=== PATIENT | female | born 1965 | race Caucasian/White ===

== ENCOUNTER 2017-05-22 04:02 | Emergency (ER) | payer OTHER ==
[2017-05-22] MEDS ORDERED: KETOROLAC 60 MG/2 ML VIAL IVP STA (04:39)
[2017-05-22] MEDS ORDERED: HYDROmorphone 1 MG/ML 1 ML SYRINGE IVP STA (04:39)
[2017-05-22] MEDS ORDERED: SODIUM CHLORIDE 0.9% 1,000 ML IV STA (04:39)
--- NOTE | 2017-05-22 04:41 | ED ---
General Adult HPI - General Chief complaint: Abdominal Pain Stated complaint: Right side/pelvic pain Time Seen by Provider: 05/22/17 04:10 Source: patient, RN notes reviewed Mode of arrival: ambulatory Limitations: no limitations - History of Present Illness Initial comments: This is a 52-year-old female presents emergency department with right-sided flank pain. Patient states she was lying in bed when it suddenly started around midnight. Patient states the pain is intermittent in severity she states patient states when it is really bad it makes her vomit. Patient states that it subsides but she always has a baseline level of pain and then again it comes on really strong. Patient denies any similar symptoms in the past. Patient denies any hematuria. Patient states when she does urinate however the pain seems to worsen her flank. Patient denies any recent fever chills. Patient denies any recent injury or heavy lifting. Denies any history of kidney stones. - Related Data Previous Rx's Medication Instructions Recorded Hydrocodone/Acetaminophen [[place] 1 each PO Q4HR PRN #20 tab 05/22/17 5-325] Ketorolac [Toradol] 10 mg PO Q6HR #15 tab 05/22/17 Allergies Allergy/AdvReac Type Severity Reaction Status Date / Time No Known Allergies Allergy Verified 05/22/17 04:12 Review of Systems ROS Statement: Those systems with pertinent positive or pertinent negative responses have been documented in the HPI. ROS Other: All systems not noted in ROS Statement are negative. 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 History of Any Multi-Drug Resistant Organisms: None Reported Past Surgical History: Cholecystectomy Additional Past Surgical History / Comment(s): d&c. right eye. Past Psychological History: No Psychological Hx Reported Smoking Status: Never smoker Past Alcohol Use History: None Reported Past Drug Use History: None Reported General Exam - General Exam Comments Initial Comments: GENERAL: Patient is well-developed and well-nourished. Patient is nontoxic and well- hydrated and is in moderate distress. ENT: Neck is soft and supple. No significant lymphadenopathy is noted. Oropharynx is clear. Moist mucous membranes. Neck has full range of motion without eliciting any pain. EYES: The sclera were anicteric and conjunctiva were pink and moist. Extraocular movements were intact and pupils were equal round and reactive to light. Eyelids were unremarkable. PULMONARY: Unlabored respirations. Good breath sounds bilaterally. No audible rales rhonchi or wheezing was noted. CARDIOVASCULAR: There is a regular rate and rhythm without any murmurs gallops or rubs. ABDOMEN: Soft and nontender with normal bowel sounds. No palpable organomegaly was noted. There is no palpable pulsatile mass. SKIN: Skin is clear with no lesions or rashes and otherwise unremarkable. NEUROLOGIC: Patient is alert and oriented x3. Cranial nerves II through XII are grossly intact. Motor and sensory are also intact. Normal speech, volume and content. Symmetrical smile. MUSCULOSKELETAL: Normal extremities with adequate strength and full range of motion. No lower extremity swelling or edema. No calf tenderness. LYMPHATICS: No significant lymphadenopathy is noted PSYCHIATRIC: Normal psychiatric evaluation. Limitations: no limitations Course Vital Signs 05/22/17 05/22/17 04:07 06:14 Temperature 98.5 F Pulse Rate 64 90 Respiratory 28 H 16 Rate Blood Pressure 246/114 215/93 O2 Sat by Pulse 99 100 Oximetry Medical Decision Making - Medical Decision Making CAT scan of the abdomen shows a 1.5 cm right UVJ kidney stone with mild hydronephrosis I went back and reevaluate the patient she was feeling much better. - Lab Data Result diagrams: 05/22/17 04:30 05/22/17 04:30 Lab Results 05/22/17 05/22/17 Range/Units 04:30 04:30 WBC 11.3 H (3.8-10.6) k/uL RBC 4.38 (3.80-5.40) m/uL Hgb 12.9 (11.4-16.0) gm/dL Hct 39.4 (34.0-46.0) % MCV 90.0 (80.0-100.0) fL MCH 29.3 (25.0-35.0) pg MCHC 32.6 (31.0-37.0) g/dL RDW 13.8 (11.5-15.5) % Plt Count 247 (150-450) k/uL Neutrophils % 76 % Lymphocytes % 15 % Monocytes % 4 % Eosinophils % 3 % Basophils % 0 % Neutrophils # 8.6 H (1.3-7.7) k/uL Lymphocytes # 1.7 (1.0-4.8) k/uL Monocytes # 0.5 (0-1.0) k/uL Eosinophils # 0.3 (0-0.7) k/uL Basophils # 0.1 (0-0.2) k/uL Sodium 138 (137-145) mmol/L Potassium 3.7 (3.5-5.1) mmol/L Chloride 105 (98-107) mmol/L Carbon Dioxide 18 L (22-30) mmol/L Anion Gap 15 mmol/L BUN 12 (7-17) mg/dL Creatinine 0.80 (0.52-1.04) mg/dL Est GFR (MDRD) Af Amer >60 (>60 ml/min/1.73 sqM) Est GFR (MDRD) Non-Af >60 (>60 ml/min/1.73 sqM) Glucose 187 H (74-99) mg/dL Calcium 9.5 (8.4-10.2) mg/dL Total Bilirubin 0.4 (0.2-1.3) mg/dL AST 17 (14-36) U/L ALT 29 (9-52) U/L Alkaline Phosphatase 77 (38-126) U/L Total Protein 7.4 (6.3-8.2) g/dL Albumin 4.2 (3.5-5.0) g/dL Amylase 37 (30-110) U/L Disposition Clinical Impression: Hypertension, Kidney stone Disposition: HOME SELF-CARE Condition: Good Instructions: Kidney Stones (ED) Prescriptions: Hydrocodone/Acetaminophen [[place] 5-325] 1 each PO Q4HR PRN #20 tab PRN Reason: Pain Ketorolac [Toradol] 10 mg PO Q6HR #15 tab Referrals: Arleen Riley DO [Primary Care Provider] - 1-2 days Randy Messer MD [STAFF PHYSICIAN] - 1-2 days
[2017-05-22] MEDS: ONDANSETRON 4 MG/2 ML VIAL IVP STA ×2 (04:44→05:11)
[2017-05-22 05:01] LABS: ALT 29 U/L (9-52); AST 17 U/L (14-36); Alkaline Phosphatase 77 U/L (38-126); Amylase 37 U/L (30-110); Anion Gap 15 mmol/L; Basophils # (A) 0.1 k/uL (0-0.2); Basophils % (A) 0 %; Blood Urea Nitrogen 12 mg/dL (7-17); CH 28.7; CHCM 32.1; Calcium 9.5 mg/dL (8.4-10.2); Carbon Dioxide 18 mmol/L (22-30); Chloride 105 mmol/L (98-107); Eosinophils # (A) 0.3 k/uL (0-0.7); Eosinophils % (A) 3 %; Glucose 187 mg/dL (74-99); HCT 39.4 % (34.0-46.0); HDW 2.48; HGB 12.9 gm/dL (11.4-16.0); Luc # (Auto) 0.17; Luc % (Auto) 2; Lymphocytes # (A) 1.7 k/uL (1.0-4.8); Lymphocytes % (A) 15 %; MCH 29.3 pg (25.0-35.0); MCHC 32.6 g/dL (31.0-37.0); Mean Platelet Volume 7.8; Monocytes # (A) 0.5 k/uL (0-1.0); Monocytes % (A) 4 %; Neutrophils # (A) 8.6 k/uL (1.3-7.7); Neutrophils % (A) 76 %; Non-African American GFR(MDRD) >60 (>60 ml/min/1.73 sqM); Potassium 3.7 mmol/L (3.5-5.1); RBC 4.38 m/uL (3.80-5.40); RDW 13.8 % (11.5-15.5); Sodium 138 mmol/L (137-145); Total Bilirubin 0.4 mg/dL (0.2-1.3); Total Protein 7.4 g/dL (6.3-8.2); WBC 11.3 k/uL (3.8-10.6); WBC (Perox) 11.65
--- NOTE | 2017-05-22 05:39 | CT ---
EXAM: CT Abdomen and Pelvis Without Intravenous Contrast CLINICAL HISTORY: Abdominal pain TECHNIQUE: Axial computed tomography images of the abdomen and pelvis without intravenous contrast. CTDI is 23.0 mGy and DLP is 1292.9. mGy-cm. This CT exam was performed using one or more of the following dose reduction techniques: automated exposure control, adjustment of the mA and/or kV according to patient size, and/or use of iterative reconstruction technique. COMPARISON: No relevant prior studies available. FINDINGS: Lower thorax: Question prior esophagectomy with gastric pull-through. Posterior left diaphragmatic hernia containing spleen and colon. ABDOMEN: Liver: Unremarkable. Gallbladder and bile ducts: Gallbladder is surgically absent. Pancreas: Unremarkable. Spleen: Unremarkable. Adrenals: Lipid rich adenoma within the right adrenal gland measured 3. 3 cm. Kidneys and ureters: There is a 14 mm calculus seen within the right UVJ with mild right hydroureteronephrosis. There is an additional nonobstructing calculus within the right kidney. Stomach and bowel: Diastases of the anterior abdominal musculature which contains nonobstructed colon. Appendix: No findings to suggest acute appendicitis. PELVIS: Bladder: Unremarkable. Reproductive: Unremarkable as visualized. ABDOMEN and PELVIS: Intraperitoneal space: Unremarkable. Bones/joints: Degenerative changes of the osseous structures. No acute fracture. No dislocation. Soft tissues: See above. Vasculature: Unremarkable. Lymph nodes: Unremarkable. IMPRESSION: 1. There is a 14 mm calculus seen within the right UVJ with mild right hydroureteronephrosis. 2. There is an additional nonobstructing calculus within the right kidney.
--- NOTE | 2017-05-22 05:41 | XR ---
EXAM: XR Abdomen Complete, 2 or More Views CLINICAL HISTORY: Reason: abdominal pain TECHNIQUE: Frontal view of the abdomen/pelvis with upright view of the abdomen. COMPARISON: No relevant prior studies available. FINDINGS: Intraperitoneal space: 11 mm calculus seen within the right hemipelvis, which likely correlates with right UVJ calculus as seen on prior CT. No free air. Gastrointestinal tract: Unremarkable. No dilation. Organs: Evidence of prior cholecystectomy. Bones/joints: Unremarkable. IMPRESSION: 11 mm calculus seen within the right hemipelvis, which likely correlates with right UVJ calculus as seen on prior CT.
[2017-05-22] MEDS ORDERED: hydrALAZINE HCL 20 MG/ML 1 ML VIAL IVP STA (06:13)
[2017-05-22 06:58] VITALS: BP 187/90; PULSE 66; RESP 18; TEMP 97.6
== END 2017-05-22 06:58 | disposition home or self-care (01) ==
LOC: EC 04:02
DX: N13.2 Hydronephrosis with renal and ureteral calculous obstruction (principal); I10 Essential (primary) hypertension; Z85.01 Personal history of malignant neoplasm of esophagus; Z90.49 Acquired absence of other specified parts of digestive tract
CPT/HCPCS: 36415; 80053; 82150; 85025; 74000; 74176; 99284; 96374; 96375 ×3; 96361 ×2; J0360; J2405; J1885; J1170

== ENCOUNTER → 2017-05-30 | Outpatient (CLI) | payer OTHER ==
[2017-05-30 11:07] LABS: EKG EKG PERFORMED
[2017-05-30 11:23] LABS: Basophils # (A) 0.1 k/uL (0-0.2); Basophils % (A) 1 %; CH 28.3; CHCM 30.6; Eosinophils # (A) 0.4 k/uL (0-0.7); Eosinophils % (A) 6 %; HCT 38.3 % (34.0-46.0); HGB 12.1 gm/dL (11.4-16.0); Hypochromasia Slight; Luc # (Auto) 0.17; Luc % (Auto) 3; Lymphocytes # (A) 1.7 k/uL (1.0-4.8); Lymphocytes % (A) 26 %; MCH 29.5 pg (25.0-35.0); MCHC 31.7 g/dL (31.0-37.0); MCV 92.9 fL (80.0-100.0); Mean Platelet Volume 7.3; Monocytes # (A) 0.4 k/uL (0-1.0); Monocytes % (A) 7 %; Neutrophils # (A) 3.7 k/uL (1.3-7.7); Neutrophils % (A) 58 %; RBC 4.12 m/uL (3.80-5.40); RDW 13.8 % (11.5-15.5); WBC 6.4 k/uL (3.8-10.6); WBC (Perox) 6.49
[2017-05-30 11:39] LABS: Anion Gap 9 mmol/L; Blood Urea Nitrogen 8 mg/dL (7-17); Calcium 8.6 mg/dL (8.4-10.2); Carbon Dioxide 29 mmol/L (22-30); Chloride 106 mmol/L (98-107); Glucose 90 mg/dL (74-99); Non-African American GFR(MDRD) >60 (>60 ml/min/1.73 sqM); Potassium 4.2 mmol/L (3.5-5.1); Sodium 144 mmol/L (137-145)
== END | disposition home or self-care (01) ==
LOC: LABPAT 10:41
PROVIDERS: ATTEND Physician Assistant
DX: Z01.810 Encounter for preprocedural cardiovascular examination (principal); N20.1 Calculus of ureter; E11.9 Type 2 diabetes mellitus without complications; I10 Essential (primary) hypertension; R00.1 Bradycardia, unspecified
CPT/HCPCS: 36415; 80048; 85025; 93005

== ENCOUNTER 2017-08-26 13:58 | Emergency (ER) | payer OTHER ==
[2017-08-26 14:03] VITALS: BP 136/84; PULSE 87; RESP 16; TEMP 99
[2017-08-26] MEDS ORDERED: DIPH,PERTUS(ACELL)TETVAC-LF 0.5 ML VIAL IM ONE (14:08)
--- NOTE | 2017-08-26 14:22 | ED ---
Wound/Laceration HPI - General Chief Complaint: Wound/Laceration Stated Complaint: Finger Lac Time Seen by Provider: 08/26/17 14:07 Source: patient, RN notes reviewed Mode of arrival: ambulatory Limitations: no limitations - History of Present Illness Initial Comments: This is a 52-year-old female presents to the emergency department with chief complaint of finger laceration. Patient states that approximately 1330 this afternoon she was using her kitchen mandolin. She states that she severed the tip of her left index finger. She dressed the wound with gauze and presented to the emergency department. Patient states she is not up-to-date with her tetanus vaccination. Denies any other injury. Denies fever, chills, chest pain , shortness of breath, abdominal pain, nausea or vomiting, constipation or diarrhea, dysuria or hematuria, numbness or tingling, headache or vision changes. - Related Data Home Medications Medication Instructions Recorded Confirmed Acetaminophen [Tylenol Extra 1,000 mg PO Q4-6H PRN 05/31/17 06/05/17 Strength] Insulin Glargine [Lantus] 20 unit SQ QAM 05/31/17 06/05/17 Lisinopril [Prinivil] 20 mg PO DAILY 05/31/17 05/31/17 Ranitidine HCl [Zantac] 150 mg PO BID 05/31/17 05/31/17 Sertraline [Zoloft] 50 mg PO HS 05/31/17 05/31/17 metFORMIN HCL [Glucophage] 500 mg PO BID 05/31/17 05/31/17 Antibiotic 06/05/17 Allergies Allergy/AdvReac Type Severity Reaction Status Date / Time No Known Allergies Allergy Verified 08/26/17 14:03 Review of Systems ROS Statement: Those systems with pertinent positive or pertinent negative responses have been documented in the HPI. ROS Other: All systems not noted in ROS Statement are negative. 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 hx bleeding ulcer, kidney stone History of Any Multi-Drug Resistant Organisms: None Reported Past Surgical History: Cholecystectomy, Tonsillectomy Additional Past Surgical History / Comment(s): surgery for esophageal cancer, rt eye surgery age 3, D&C, Past Anesthesia/Blood Transfusion Reactions: No Reported Reaction Past Psychological History: Depression Smoking Status: Never smoker Past Alcohol Use History: None Reported Past Drug Use History: None Reported - Past Family History Mother Family Medical History: No Reported History General Exam - General Exam Comments Initial Comments: General: Awake and alert, well-developed; in no apparent distress. HEENT: Head atraumatic, normocephalic. Pupils are equal, round and reactive to light. Extraocular movements intact. Neck: Supple. Normal ROM. Cardiovascular: Regular rate and rhythm. No murmurs, rubs or gallops. Chest symmetrical. Respiratory: Lungs clear to auscultation bilaterally. No wheezes, rales or rhonchi. Normal respiratory effort with no use of accessory muscles. Musculoskeletal: Normal ROM of left index finger. Sensation is intact. Radial pulses are 2+ equal and palpable bilaterally. Skin: [place], warm and dry without rashes. Superficial skin avulsion distal tip of left index finger. Neurological: Alert and oriented x3. CN II-XII grossly intact. Speech is fluent and answers are appropriate. No focal neuro deficits. Psychiatric: Normal mood and affect. No overt signs of depression or anxiety noted. Limitations: no limitations Course Vital Signs 08/26/17 13:59 Temperature 99 F Pulse Rate 87 Respiratory 16 Rate Blood Pressure 136/84 O2 Sat by Pulse 98 Oximetry Medical Decision Making - Medical Decision Making This is a 52-year-old female who presents to the emergency department with chief complaint of left index finger laceration. X-ray revealed no acute abnormalities or involvement of bone. There is a superficial skin avulsion distal tip of left index finger. Bleeding continues. Gelfoam and dressing placed. Patient is in no acute distress and will be discharged home. Recommended patient to remove the Gelfoam in 2 days. I told patient that sometimes it is difficult to remove so she may add water to the it. Recommended follow-up with Dr. Richardson in the next 2 days. She is in agreement with plan and voices understanding. All questions were answered. - Radiology Data Radiology results: report reviewed Left finger x-ray findings: I see no fracture nor dislocation. There is narrowing of the DIP joint space. There is no sign of a foreign body. Impression: No acute abnormality of left index finger. Disposition Clinical Impression: Avulsion of fingertip Disposition: HOME SELF-CARE Condition: Good Instructions: Skin Avulsion (ED) Additional Instructions: Please keep dressing and Gelfoam clean, dry and intact for the next 2 days until removal. Please follow up with primary care provider within 1-2 days. Return to emergency department if symptoms should worsen or any concerns arise. Referrals: Clark Richardson MD [Primary Care Provider] - 1-2 days Time of Disposition: 14:58
[2017-08-26] MEDS ORDERED: GELATIN SPONGE,ABSORB (SMALL) 1 EACH SPONGE TOPICAL STA (14:36)
--- NOTE | 2017-08-26 14:43 | XR ---
EXAMINATION TYPE: XR finger LT DATE OF EXAM: 08/26/2017 COMPARISON: NONE HISTORY: Laceration. Pain TECHNIQUE: 3 views FINDINGS: I see no fracture nor dislocation. There is narrowing of the DIP joint space. There is no s ign of a foreign body. IMPRESSION: No acute abnormality of the left index finger.
== END 2017-08-26 15:09 | disposition home or self-care (01) ==
LOC: EC 13:58
DX: S61.211A Laceration without foreign body of left index finger without damage to nail, initial encounter (principal); E11.9 Type 2 diabetes mellitus without complications; K21.9 Gastro-esophageal reflux disease without esophagitis; I10 Essential (primary) hypertension; F32.9 Major depressive disorder, single episode, unspecified; Z23 Encounter for immunization; Z85.01 Personal history of malignant neoplasm of esophagus; Z79.4 Long term (current) use of insulin; Z79.899 Other long term (current) drug therapy; W26.8XXA Contact with other sharp object(s), not elsewhere classified, initial encounter; Y92.000 Kitchen of unspecified non-institutional (private) residence as the place of occurrence of the external cause
CPT/HCPCS: 90471; 90715; 99283

== ENCOUNTER 2018-01-18 09:44 | Inpatient (IN) | payer OTHER ==
[2018-01-18] MEDS ORDERED: SODIUM CHLORIDE 0.9% 1,000 ML IV STA ×2 (10:23)
[2018-01-18] MEDS ORDERED: ONDANSETRON 4 MG/2 ML VIAL IVP STA (10:23)
[2018-01-18] MEDS ORDERED: MORPHINE SULFATE 4 MG/ML SYRINGE IV STA (10:23)
--- NOTE | 2018-01-18 10:23 | ED ---
General Adult HPI - General Chief complaint: Nausea/Vomiting/Diarrhea Stated complaint: Abd Pain, Vomiting Time Seen by Provider: 01/18/18 10:13 Source: patient Mode of arrival: wheelchair Limitations: no limitations - History of Present Illness Initial comments: 52 years old female with a history of hypertension and diabetes was unable to take her blood pressure medications this morning presents with right flank pain nausea and vomiting. She does have a history of kidney stones and this pain seems similar to her previous kidney stone, starts in the right flank area radiates to the right groin area she is nauseous she is throwing up, unable to take her medications and pain is 10 over 10, no frequency urgency dysuria. No headaches no neck stiffness no chest pain no shortness of breath no symptoms of TIA or CVA - Related Data Home Medications Medication Instructions Recorded Confirmed Acetaminophen [Tylenol Extra 1,000 mg PO Q4-6H PRN 05/31/17 06/05/17 Strength] Insulin Glargine [Lantus] 20 unit SQ QAM 05/31/17 06/05/17 Lisinopril [Prinivil] 20 mg PO DAILY 05/31/17 05/31/17 Ranitidine HCl [Zantac] 150 mg PO BID 05/31/17 05/31/17 Sertraline [Zoloft] 50 mg PO HS 05/31/17 05/31/17 metFORMIN HCL [Glucophage] 500 mg PO BID 05/31/17 05/31/17 Antibiotic 06/05/17 Allergies Allergy/AdvReac Type Severity Reaction Status Date / Time No Known Allergies Allergy Verified 01/18/18 10:03 Review of Systems ROS Statement: Those systems with pertinent positive or pertinent negative responses have been documented in the HPI. ROS Other: All systems not noted in ROS Statement are negative. 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 hx bleeding ulcer, kidney stone History of Any Multi-Drug Resistant Organisms: None Reported Past Surgical History: Cholecystectomy, Tonsillectomy Additional Past Surgical History / Comment(s): surgery for esophageal cancer, rt eye surgery age 3, D&C, Past Anesthesia/Blood Transfusion Reactions: No Reported Reaction Past Psychological History: Depression Smoking Status: Never smoker Past Alcohol Use History: None Reported Past Drug Use History: None Reported - Past Family History Mother Family Medical History: No Reported History General Exam - General Exam Comments Initial Comments: General: The patient is awake and alert, in severe distress does of the flank pain Skin: Skin is warm and dry and no rashes or lesions are noted. Eye: Pupils are equal, round and reactive to light, extra-ocular movements are intact; there is normal conjunctiva bilaterally. Ears, nose, mouth and throat: There are moist mucous membranes and no oral lesions. Neck: The neck is supple, there is no tenderness or JVD. Cardiovascular: There is a regular rate and rhythm. No murmur, rub or gallop is appreciated. Noticed tachycardia Respiratory: To auscultation bilateral, crease breath sounds bilateral Gastrointestinal: Tender over the right flank area and over the right paraumbilical area Back: There is no tenderness to palpation in the midline. There is no obvious deformity. Musculoskeletal: Normal ROM, no tenderness, There is no pedal edema. There is no calf tenderness or swelling. No cords were appreciated. Neurological: CN II-XII intact, Cranial nerves III through XII are intact. There are no obvious motor or sensory deficits. Coordination appears grossly intact. Speech is normal. Psychiatric: Cooperative, appropriate mood & affect, normal judgment. Limitations: no limitations Course Vital Signs 01/18/18 01/18/18 10:01 12:06 Temperature 98.5 F Pulse Rate 73 64 Respiratory 20 16 Rate Blood Pressure 234/109 237/102 O2 Sat by Pulse 99 97 Oximetry , Called and spoke to Dr. Pollard informed him about the CT findings about obstructing stone in the proximal right ureter, hydroureter nephrosis and perinephric and periureteric fat Stranding Medical Decision Making - Lab Data Result diagrams: 01/18/18 10:50 01/18/18 10:50 Lab Results 01/18/18 01/18/18 01/18/18 Range/Units 10:50 10:50 10:50 WBC 9.4 (3.8-10.6) k/uL RBC 4.55 (3.80-5.40) m/uL Hgb 13.2 (11.4-16.0) gm/dL Hct 39.3 (34.0-46.0) % MCV 86.3 (80.0-100.0) fL MCH 29.0 (25.0-35.0) pg MCHC 33.6 (31.0-37.0) g/dL RDW 13.4 (11.5-15.5) % Plt Count 220 (150-450) k/uL Neutrophils % 80 % Lymphocytes % 14 % Monocytes % 3 % Eosinophils % 1 % Basophils % 1 % Neutrophils # 7.5 (1.3-7.7) k/uL Lymphocytes # 1.4 (1.0-4.8) k/uL Monocytes # 0.3 (0-1.0) k/uL Eosinophils # 0.1 (0-0.7) k/uL Basophils # 0.0 (0-0.2) k/uL Sodium 143 (137-145) mmol/L Potassium 3.3 L (3.5-5.1) mmol/L Chloride 103 (98-107) mmol/L Carbon Dioxide 22 (22-30) mmol/L Anion Gap 18 mmol/L BUN 13 (7-17) mg/dL Creatinine 0.60 (0.52-1.04) mg/dL Est GFR (CKD-EPI)AfAm >90 (>60 ml/min/1.73 sqM) Est GFR (CKD-EPI)NonAf >90 (>60 ml/min/1.73 sqM) Glucose 259 H (74-99) mg/dL Calcium 9.3 (8.4-10.2) mg/dL Total Bilirubin 0.6 (0.2-1.3) mg/dL AST 17 (14-36) U/L ALT 22 (9-52) U/L Alkaline Phosphatase 59 (38-126) U/L Total Protein 6.9 (6.3-8.2) g/dL Albumin 4.0 (3.5-5.0) g/dL Urine Color Light Yellow Urine Appearance Cloudy H (Clear) Urine pH 5.5 (5.0-8.0) Ur Specific [place] 1.013 (1.001-1.035) Urine Protein 1+ H (Negative) Urine Glucose (UA) 1+ H (Negative) Urine Ketones 2+ H (Negative) Urine Blood Small H (Negative) Urine Nitrite Positive H (Negative) Urine Bilirubin Negative (Negative) Urine Urobilinogen <2.0 (<2.0) mg/dL Ur Leukocyte Esterase Large H (Negative) Urine RBC 26 H (0-5) /hpf Urine WBC 42 H (0-5) /hpf Ur Squamous Epith Cells 3 (0-4) /hpf Urine Bacteria Moderate H (None) /hpf Urine Mucus Rare H (None) /hpf Critical Care Time Total Critical Care Time: 45 Critical Care Time: I notice a blood pressure childs to 34/109, she was given some pain medications noted nausea medications and is hoping this will go down and unfortunately blood pressure persisted very high finally labetalol 20 mg along with the lisinopril 20 mg IV and by mouth respectively was given morphine was repeated along with a nausea medicine, I reviewed the CAT scan and CAT scan confirms a 6 mm obstructing stone in the proximal ureter causing hydroureter and hydronephrosis with some perinephric and periureteric's fat stranding, this was shared with the patient and then discussed with the Dr. Atul Pollard he agreed with admission she be admitted to Dr. Pollard's service and her sugar is bit high is greater than 250 with some ketones though she is not really ketoacidosis she does some fluids and some subcu regular insulin Disposition Clinical Impression: Hydronephrosis, Hydroureter, Obstruction of right ureteropelvic junction due to stone, Hypertension Disposition: ADMITTED IP TO THIS HOSP Condition: Good Referrals: Nonstaff,Physician [Primary Care Provider] - 1-2 days
[2018-01-18 11:06] LABS: Basophils % (A) 1 %; Eosinophils # (A) 0.1 k/uL (0-0.7); Eosinophils % (A) 1 %; HCT 39.3 % (34.0-46.0); HGB 13.2 gm/dL (11.4-16.0); Lymphocytes # (A) 1.4 k/uL (1.0-4.8); Lymphocytes % (A) 14 %; MCHC 33.6 g/dL (31.0-37.0); MCV 86.3 fL (80.0-100.0); Mean Platelet Volume 8.5; Monocytes # (A) 0.3 k/uL (0-1.0); Monocytes % (A) 3 %; Neutrophils # (A) 7.5 k/uL (1.3-7.7); Neutrophils % (A) 80 %; Platelet Count 220 k/uL (150-450); RBC 4.55 m/uL (3.80-5.40); RDW 13.4 % (11.5-15.5); WBC 9.4 k/uL (3.8-10.6)
[2018-01-18 11:15] LABS: ALT 22 U/L (9-52); AST 17 U/L (14-36); Alkaline Phosphatase 59 U/L (38-126); Anion Gap 18 mmol/L; Blood Urea Nitrogen 13 mg/dL (7-17); Calcium 9.3 mg/dL (8.4-10.2); Carbon Dioxide 22 mmol/L (22-30); Chloride 103 mmol/L (98-107); Glucose 259 mg/dL (74-99); Potassium 3.3 mmol/L (3.5-5.1); Sodium 143 mmol/L (137-145); Total Bilirubin 0.6 mg/dL (0.2-1.3); Total Protein 6.9 g/dL (6.3-8.2)
[2018-01-18 11:23] LABS: Appearance,Urine Cloudy (Clear); Bacteria,Urine Moderate /hpf; Bilirubin,Urine Negative (Negative); Blood,Urine Small (Negative); Color,Urine Light Yellow; Glucose,Urine (UA) 1+ (Negative); Leukocyte Esterase,Urine Large (Negative); Mucus,Urine Rare /hpf; Nitrite,Urine Positive (Negative); PH, Urine 5.5 (5.0-8.0); Protein,Urine 1+ (Negative); RBC,Urine 26 /hpf (0-5); Specific Gravity,Urine 1.013 (1.001-1.035); Squamous Epithelial Cell,Urine 3 /hpf (0-4); Urobilinogen,Urine <2.0 mg/dL (<2.0); WBC,Urine 42 /hpf (0-5)
[2018-01-18 11:28] LABS: Ketones,Urine 2+ (Negative)
[2018-01-18] MEDS ORDERED: cefTRIAXone 2,000 MG in SODIUM CHLORIDE 0.9% 100 ML IVPB STA (12:01)
[2018-01-18] MEDS ORDERED: INSULIN REGULAR 100 UNIT/ML VIAL SQ ONE (12:02)
[2018-01-18] MEDS ORDERED: cefTRIAXone IN SWFI 2,000 MG/20 ML SYRINGE IVP STA (12:02)
[2018-01-18] MEDS ORDERED: METOCLOPRAMIDE 5 MG/ML 2 ML VIAL IVP STA (12:02)
--- NOTE | 2018-01-18 12:17 | CT ---
EXAMINATION TYPE: CT abdomen pelvis wo con DATE OF EXAM: 01/18/2018 COMPARISON: 05/22/2017 HISTORY: Rt flank pain CT DLP: 936.4 mGycm Automated exposure control for dose reduction was used. TECHNIQUE: Helical acquisition of images was performed from the lung bases through the pelvis. FINDINGS: LUNG BASES: There is a partial intrathoracic stomach with postsurgical changes and Bochdalek hernia p ortions of the displaced pancreas and splenic vasculature. LIVER/GB: Unenhanced liver is grossly unremarkable. Gallbladder surgically absent. PANCREAS: And chronic atrophy and displacement as described above. No pancreatic ductal dilatation. SPLEEN: No significant abnormality is seen. ADRENALS: Low-density 2.5 cm right adrenal nodule is compatible with a benign adrenal adenoma. Left a drenal gland is unremarkable. KIDNEYS: 2 mm nonobstructing right renal calculus is seen within a calyx in addition to an obstructin g 6 mm proximal ureteral calculus creating mild right hydroureteronephrosis, periureteral fat strandi ng and perinephric fat stranding. No urinary bladder calculi are seen. No left-sided hydronephrosis. No left-sided nephrolithiasis. FREE AIR: No free air is visualized REPRODUCTIVE ORGANS: No significant abnormality is seen URINARY BLADDER: No significant abnormality is seen. ADENOPATHY: Greater than 1 cm short axis lymph nodes are seen within the abdomen or pelvis. OSSEOUS STRUCTURES: Nonspecific sclerotic foci likely within the left femoral head may relate to [place]. BOWEL: Partial intrathoracic stomach with postsurgical changes as described above. Small bowel is pr edominantly collected within the left mid abdomen rather than the right abdomen. This may be partiall y due to the elongated liver No dilation is seen of large or small bowel. Lipomatous hypertrophy of t he ileocecal valve is identified. There is a ventral hernia that is wide neck containing both large a nd small bowel. No current evidence of bowel incarceration on CT. IMPRESSION: 1. ACUTE OBSTRUCTING 6 MM PROXIMAL URETERAL CALCULUS CREATING MILD RIGHT HYDROURETERONEPHROSIS, PERIN EPHRIC FAT STRANDING AND PERIURETERAL FAT STRANDING. 2. ADDITIONAL NONOBSTRUCTING RIGHT RENAL CALCULUS. 3. CHRONIC CHANGES SUCH A PARTIAL INTRATHORACIC STOMACH, POSTSURGICAL CHANGES OF THE STOMACH, ANNABELLA DALEK HERNIA WITH HERNIATION OF MESENTERIC FAT IN THE PANCREAS, AND VENTRAL HERNIA CONTAINING BOTH LA RGE AND SMALL BOWEL.
[2018-01-18] MEDS ORDERED: MORPHINE SULFATE 4 MG/ML SYRINGE IVP STA (12:24)
[2018-01-18] MEDS ORDERED: LISINOPRIL 20 MG TAB PO STA (12:25)
[2018-01-18] MEDS: LABETALOL 5 MG/ML VIAL MDV IVP STA ×2 (12:56→14:06)
[2018-01-18] MEDS ORDERED: MORPHINE SULFATE 4 MG/ML SYRINGE IV PRN (13:02)
[2018-01-18] MEDS ORDERED: NALOXONE 0.4 MG/ML 1 ML VIAL IV PRN (13:02)
[2018-01-18 13:40] LABS: Glucose,Whole Blood 277 mg/dL (75-99)
[2018-01-18] MEDS: ACETAMINOPHEN TAB 500 MG TAB PO PRN (13:47)
[2018-01-18 15:25] VITALS: BMI 31.5
[2018-01-18 16:31] LABS: Glucose,Whole Blood 213 mg/dL (75-99)
[2018-01-18] MEDS ORDERED: cefTRIAXone IN SWFI 1,000 MG/10 ML SYRINGE IVP STA (17:24)
[2018-01-18] MEDS: metFORMIN 500 MG TAB PO SCH (17:25)
--- NOTE | 2018-01-18 17:31 | P.GSHP ---
History of Present Illness H&P Date: 01/18/18 48-year-old female with a weeklong history of right flank pain. She has had fever for the last 24 hours. She came into the emergency room. She was evaluated and found to have a right ureteral stone in the upper ureter 6 mm. The patient has a history of stones. She is diabetic. She had a temperature 102. The emergency room and admitted her to [place]. As the fever she needs a double-J catheter. Her urine looks infected. This is been discussed with the patient. - Constitutional Constitutional: Reports fatigue, Reports fever, Reports lethargy - Gastrointestinal Gastrointestinal: Reports abdominal pain Past Medical History Past Medical History: Cancer, Diabetes Mellitus, GERD/Reflux, GI Bleed, Hypertension Additional Past Medical History / Comment(s): esophogeal cancer. hx bleeding ulcer, kidney stone History of Any Multi-Drug Resistant Organisms: None Reported Past Surgical History: Cholecystectomy, Tonsillectomy Additional Past Surgical History / Comment(s): surgery for esophageal cancer, rt eye surgery age 3, D&C, Past Anesthesia/Blood Transfusion Reactions: No Reported Reaction Past Psychological History: Depression Smoking Status: Never smoker Past Alcohol Use History: None Reported Past Drug Use History: None Reported - Past Family History Mother Family Medical History: No Reported History Father Family Medical History: No Reported History Medications and Allergies Home Medications Medication Instructions Recorded Confirmed Type Lisinopril [Prinivil] 20 mg PO DAILY 05/31/17 01/18/18 History Ranitidine HCl [Zantac] 150 mg PO BID 05/31/17 01/18/18 History Sertraline [Zoloft] 50 mg PO HS 05/31/17 01/18/18 History metFORMIN HCL [Glucophage] 500 mg PO BID 05/31/17 01/18/18 History Insulin Aspart [NovoLOG See Protocol SQ TID-W/MEALS 01/18/18 01/18/18 History (formulary)] Allergies Allergy/AdvReac Type Severity Reaction Status Date / Time No Known Allergies Allergy Verified 01/18/18 13:33 Surgical - Exam Vital Signs Temp Pulse Resp BP Pulse Ox 98.5 F 73 20 234/109 99 01/18/18 10:01 01/18/18 10:01 01/18/18 10:01 01/18/18 10:01 01/18/18 10:01 - General well developed, well nourished, moderate distress - ENT no hearing loss - Neck trachea midline - Respiratory normal expansion, normal respiratory effort - Cardiovascular Rhythm: regular - Abdomen Abdomen: soft, tender - Neurologic normal coordination, normal sensation - Musculoskeletal normal posture - Psychiatric oriented to time, oriented to person, oriented to place, speech is normal, memory intact Results - Labs 01/18/18 10:50 01/18/18 10:50 Abnormal Lab Results - Last 24 Hours (Table) 01/18/18 01/18/18 01/18/18 Range/Units 10:50 10:50 13:38 Potassium 3.3 L (3.5-5.1) mmol/L Glucose 259 H (74-99) mg/dL POC Glucose (mg/dL) 277 H (75-99) mg/dL Urine Appearance Cloudy H (Clear) Urine Protein 1+ H (Negative) Urine Glucose (UA) 1+ H (Negative) Urine Ketones 2+ H (Negative) Urine Blood Small H (Negative) Urine Nitrite Positive H (Negative) Ur Leukocyte Esterase Large H (Negative) Urine RBC 26 H (0-5) /hpf Urine WBC 42 H (0-5) /hpf Urine Bacteria Moderate H (None) /hpf Urine Mucus Rare H (None) /hpf 01/18/18 Range/Units 16:25 Potassium (3.5-5.1) mmol/L Glucose (74-99) mg/dL POC Glucose (mg/dL) 213 H (75-99) mg/dL Urine Appearance (Clear) Urine Protein (Negative) Urine Glucose (UA) (Negative) Urine Ketones (Negative) Urine Blood (Negative) Urine Nitrite (Negative) Ur Leukocyte Esterase (Negative) Urine RBC (0-5) /hpf Urine WBC (0-5) /hpf Urine Bacteria (None) /hpf Urine Mucus (None) /hpf Diabetes panel 01/18/18 Range/Units 10:50 Sodium 143 (137-145) mmol/L Potassium 3.3 L (3.5-5.1) mmol/L Chloride 103 (98-107) mmol/L Carbon Dioxide 22 (22-30) mmol/L BUN 13 (7-17) mg/dL Creatinine 0.60 (0.52-1.04) mg/dL Glucose 259 H (74-99) mg/dL Calcium 9.3 (8.4-10.2) mg/dL AST 17 (14-36) U/L ALT 22 (9-52) U/L Alkaline Phosphatase 59 (38-126) U/L Total Protein 6.9 (6.3-8.2) g/dL Albumin 4.0 (3.5-5.0) g/dL Calcium panel 01/18/18 Range/Units 10:50 Calcium 9.3 (8.4-10.2) mg/dL Albumin 4.0 (3.5-5.0) g/dL Pituitary panel 01/18/18 Range/Units 10:50 Sodium 143 (137-145) mmol/L Potassium 3.3 L (3.5-5.1) mmol/L Chloride 103 (98-107) mmol/L Carbon Dioxide 22 (22-30) mmol/L BUN 13 (7-17) mg/dL Creatinine 0.60 (0.52-1.04) mg/dL Glucose 259 H (74-99) mg/dL Calcium 9.3 (8.4-10.2) mg/dL Adrenal panel 01/18/18 Range/Units 10:50 Sodium 143 (137-145) mmol/L Potassium 3.3 L (3.5-5.1) mmol/L Chloride 103 (98-107) mmol/L Carbon Dioxide 22 (22-30) mmol/L BUN 13 (7-17) mg/dL Creatinine 0.60 (0.52-1.04) mg/dL Glucose 259 H (74-99) mg/dL Calcium 9.3 (8.4-10.2) mg/dL Total Bilirubin 0.6 (0.2-1.3) mg/dL AST 17 (14-36) U/L ALT 22 (9-52) U/L Alkaline Phosphatase 59 (38-126) U/L Total Protein 6.9 (6.3-8.2) g/dL Albumin 4.0 (3.5-5.0) g/dL - Imaging CT scan - abdomen: report reviewed, image reviewed CT scan - pelvis: report reviewed, image reviewed Assessment and Plan Assessment: Impression: Right ureteral stone, urinary tract infection with sepsis, diabetes Recommendations: IV antibiotics, nothing by mouth, placement of double-J catheter.
[2018-01-18] MEDS ORDERED: LIDOCAINE 1% INJ 10MG/ML (20 ML MDV) ONE (18:24)
[2018-01-18] MEDS ORDERED: ONDANSETRON 4 MG/2 ML VIAL ONE (18:24)
[2018-01-18] MEDS ORDERED: MIDAZOLAM 2 MG/2 ML VIAL ONE (18:24)
[2018-01-18] MEDS ORDERED: ePHEDrine SULFATE/0.9% NACL/PF 50 MG/5 ML SYRINGE IV ONE (18:24)
[2018-01-18] MEDS ORDERED: fentaNYL (PF) 50 MCG/ML 2 ML AMP ONE (18:24)
[2018-01-18] MEDS ORDERED: PROPOFOL 10 MG/ML 20 ML VIAL IV ONE (18:24)
[2018-01-18] MEDS ORDERED: SUCCINYLCHOLINE CHLORIDE 100 MG/5 ML SYR IV ONE (18:24)
[2018-01-18] MEDS ORDERED: IV FLUID CONTINUATION 200 ML IV ONE (18:40)
[2018-01-18] MEDS ORDERED: LACTATED RINGERS 1,000 ML IV ONE (18:40)
--- NOTE | 2018-01-18 18:46 | P.OP ---
Date of Procedure: 01/18/18 Preoperative Diagnosis: Right ureteral stone, urinary tract infection with sepsis, pyonephrosis Postoperative Diagnosis: Same Procedure(s) Performed: Cystoscopy, placement of 6 x 26 double-J catheter right Anesthesia: JOSSUE Surgeon: Randy Messer Estimated Blood Loss (ml): 0 Pathology: none sent Condition: stable Disposition: PACU Indications for Procedure: The patient is a 52 old female admitted to the hospital with acute ureteral colic. She developed a temperature 102 [address] floor. Her urine looked infected. Because of the elevated temperature the infected looking urine she' ll undergo a double-J catheter.. This will control the pain and alleviate the obstruction and urosepsis. Description of Procedure: Patient is brought to the operating room. She's given a general endotracheal anesthesia. She's placed lithotomy position with sterile prep and drape. Cystoscopy Foroblique lens and 22-Danish sheath identifies a chronically infected as well as acutely infected bladder. An 035 wires passed up alongside the stone into the renal pelvis. Marked pyonephrosis comes from the right ureteral orifice. Over the wires passed a 6 x 26 double-J catheter that coils in the renal pelvis and the bladder. Did urine drained from the kidney. The bladder strain the patient awake and returned recovery in good condition. She tolerated procedure well. She required a ureteroscopy stone and stent removal at a later date.
--- NOTE | 2018-01-18 18:58 | FL ---
EXAMINATION TYPE: FL guidance operating room DATE OF EXAM: 01/18/2018 CLINICAL HISTORY: Right-sided ureteral stent placement TECHNIQUE: Fluoroscopy. COMPARISON: None. FINDINGS/IMPRESSION: Fluoroscopic guidance was provided during procedure performed by Dr. Messer. A total of 3 seconds of fluoroscopic time was utilized during the procedure and 1 spot images was acqui red during placement of a right ureteral stent.
[2018-01-18 20:03] LABS: Glucose,Whole Blood 196 mg/dL (75-99)
[2018-01-18] MEDS: SERTRALINE 50 MG TAB PO SCH (20:11)
[2018-01-18] MEDS: FAMOTIDINE 20 MG TAB PO SCH (20:11)
[2018-01-19 06:46] LABS: Glucose,Whole Blood 209 mg/dL (75-99)
[2018-01-19 06:59] LABS: ALT 31 U/L (9-52); AST 34 U/L (14-36); Albumin 3.1 g/dL (3.5-5.0); Alkaline Phosphatase 45 U/L (38-126); Anion Gap 14 mmol/L; Blood Urea Nitrogen 18 mg/dL (7-17); Calcium 8.2 mg/dL (8.4-10.2); Carbon Dioxide 24 mmol/L (22-30); Chloride 104 mmol/L (98-107); Glucose 214 mg/dL (74-99); Potassium 3.9 mmol/L (3.5-5.1); Sodium 142 mmol/L (137-145); Total Bilirubin 0.3 mg/dL (0.2-1.3); Total Protein 5.6 g/dL (6.3-8.2)
[2018-01-19 07:24] LABS: Basophils # (A) 0.1 k/uL (0-0.2); Basophils % (A) 0 %; Eosinophils % (A) 0 %; HCT 36.4 % (34.0-46.0); HGB 11.5 gm/dL (11.4-16.0); Hypochromasia Slight; Lymphocytes # (A) 1.8 k/uL (1.0-4.8); Lymphocytes % (A) 8 %; MCH 28.7 pg (25.0-35.0); MCHC 31.5 g/dL (31.0-37.0); MCV 90.9 fL (80.0-100.0); Mean Platelet Volume 8.5; Monocytes # (A) 1.3 k/uL (0-1.0); Monocytes % (A) 5 %; Neutrophils # (A) 20.6 k/uL (1.3-7.7); Neutrophils % (A) 86 %; Platelet Count 139 k/uL (150-450); RDW 13.8 % (11.5-15.5); WBC 23.9 k/uL (3.8-10.6)
[2018-01-19] MEDS ORDERED: INSULIN DETEMIR 100 UNIT/ML 10 ML VIAL SQ SCH (07:30)
[2018-01-19] MEDS: metFORMIN 500 MG TAB PO SCH ×2 (07:58→17:53)
[2018-01-19] MEDS: FAMOTIDINE 20 MG TAB PO SCH (07:59)
[2018-01-19] MEDS: LISINOPRIL 20 MG TAB PO SCH (07:59)
[2018-01-19] MEDS: ACETAMINOPHEN TAB 500 MG TAB PO PRN ×2 (11:41→20:12)
[2018-01-19] MEDS: ONDANSETRON 4 MG/2 ML VIAL IVP PRN ×2 (11:42→20:13)
[2018-01-19 11:49] LABS: Glucose,Whole Blood 198 mg/dL (75-99)
--- NOTE | 2018-01-19 11:56 | P.PN ---
Subjective Progress Note Date: 01/19/18 The patient underwent emergent placement of a double-J catheter to relieve the obstruction from a pyonephrosis due to a right ureteral stone, urinary tract infection with sepsis yesterday. She is feeling better but still nauseated and was still some vomiting. She did have a white count of 23,000 which is not surprising given was identified. I will continue to observe for 24 hours longer. SHe'll be discharged home tomorrow provided she continues to improve. Objective - Vital Signs Vital signs: Vital Signs Temp 98.8 F 01/19/18 11:40 Pulse 68 01/19/18 11:40 Resp 14 01/19/18 11:40 BP 138/79 01/19/18 11:40 Pulse Ox 98 01/19/18 11:40 Intake & Output 01/18/18 01/19/18 01/19/18 18:59 06:59 18:59 Intake Total 400 1050 Output Total 0 300 Balance 400 750 Weight 99.79 kg Intake: IV 400 Intake, IV Titration 1050 Amount Sodium Chloride 0.9% 1, 1050 000 ml @ 100 mls/hr IV . Q10H STA Rx#:[id number] Output: Urine 300 Estimated Blood Loss 0 Other: # Voids 2 - Labs CBC & Chem 7: 01/19/18 06:11 01/19/18 06:11 Labs: Abnormal Lab Results - Last 24 Hours (Table) 01/18/18 01/18/18 01/18/18 Range/Units 13:38 16:25 20:00 WBC (3.8-10.6) k/uL Plt Count (150-450) k/uL Neutrophils # (1.3-7.7) k/uL Monocytes # (0-1.0) k/uL BUN (7-17) mg/dL Glucose (74-99) mg/dL POC Glucose (mg/dL) 277 H 213 H 196 H (75-99) mg/dL Calcium (8.4-10.2) mg/dL Total Protein (6.3-8.2) g/dL Albumin (3.5-5.0) g/dL 01/19/18 01/19/18 01/19/18 Range/Units 06:11 06:11 06:44 WBC 23.9 H (3.8-10.6) k/uL Plt Count 139 L (150-450) k/uL Neutrophils # 20.6 H (1.3-7.7) k/uL Monocytes # 1.3 H (0-1.0) k/uL BUN 18 H (7-17) mg/dL Glucose 214 H (74-99) mg/dL POC Glucose (mg/dL) 209 H (75-99) mg/dL Calcium 8.2 L (8.4-10.2) mg/dL Total Protein 5.6 L (6.3-8.2) g/dL Albumin 3.1 L (3.5-5.0) g/dL 01/19/18 Range/Units 11:47 WBC (3.8-10.6) k/uL Plt Count (150-450) k/uL Neutrophils # (1.3-7.7) k/uL Monocytes # (0-1.0) k/uL BUN (7-17) mg/dL Glucose (74-99) mg/dL POC Glucose (mg/dL) 198 H (75-99) mg/dL Calcium (8.4-10.2) mg/dL Total Protein (6.3-8.2) g/dL Albumin (3.5-5.0) g/dL
[2018-01-19] MEDS: SERTRALINE 50 MG TAB PO SCH (20:12)
[2018-01-20 00:39] VITALS: RESP 16
[2018-01-20] MEDS: FAMOTIDINE 20 MG TAB PO SCH ×2 (01:14→07:22)
[2018-01-20] MEDS ORDERED: INSULIN DETEMIR 100 UNIT/ML 10 ML VIAL SQ SCH (06:16)
[2018-01-20 06:59] LABS: Glucose,Whole Blood 81 mg/dL (75-99)
[2018-01-20] MEDS: metFORMIN 500 MG TAB PO SCH (07:22)
[2018-01-20] MEDS: LISINOPRIL 20 MG TAB PO SCH (07:22)
[2018-01-20] MEDS: ACETAMINOPHEN TAB 500 MG TAB PO PRN (07:28)
[2018-01-20 12:06] LABS: Glucose,Whole Blood 79 mg/dL (75-99)
--- NOTE | 2018-01-20 14:06 | P.DS ---
Providers Date of admission: 01/18/18 13:02 Attending physician: Randy Messer Primary care physician: Physician Nonstaff Hospital Course: The patient was brought into the hospital with acute ureteral colic. Within a few hours of her admission she elevated temperature 102 and it persisted. Her urine microscopically was infected. That she has a urinary tract infection with sepsis and pyelonephrosis. An urgent cystoscopy and double-J catheter was placed a. She did well from that. Her white count on admission was elevated at 23 9. Febrile. Her pain and nausea subsided. She tolerated regular diet. She'll be discharged home on Bactrim double strength 1 twice a day for 2 weeks. I'll see her in the office and week. She'll be set up for a ureteroscopy stent and stone removal in about 10 days. Her condition upon discharge is good. She will resume all her medication. Activity is normal. Diet is regular. Patient Condition at Discharge: Good Plan - Discharge Summary Discharge Rx Participant: Yes New Discharge Prescriptions: New Sulfamethox-Tmp 800-160Mg [Bactrim DS 800-160 mg] 1 tab PO Q12HR #30 tab No Action metFORMIN HCL [Glucophage] 500 mg PO BID Ranitidine HCl [Zantac] 150 mg PO BID Sertraline [Zoloft] 50 mg PO HS Lisinopril [Prinivil] 20 mg PO DAILY Insulin Aspart [NovoLOG (formulary)] See Protocol SQ TID-W/MEALS Discharge Medication List Lisinopril [Prinivil] 20 mg PO DAILY 05/31/17 [History] Ranitidine HCl [Zantac] 150 mg PO BID 05/31/17 [History] Sertraline [Zoloft] 50 mg PO HS 05/31/17 [History] metFORMIN HCL [Glucophage] 500 mg PO BID 05/31/17 [History] Insulin Aspart [NovoLOG (formulary)] See Protocol SQ TID-W/MEALS 01/18/18 [ History] Sulfamethox-Tmp 800-160Mg [Bactrim DS 800-160 mg] 1 tab PO Q12HR #30 tab [Rx] Follow up Appointment(s)/Referral(s): Nonstaff,Physician [Primary Care Provider] - 1-2 days Randy Messer MD [STAFF PHYSICIAN] - 1 Week
[2018-01-20 15:18] VITALS: BP 160/82; PULSE 62; TEMP 97.6
== END 2018-01-20 15:15 | disposition home or self-care (01) | DRG 872 ==
LOC: EC 09:44 → 3SUR 13:02
PROVIDERS: ADMIT Urology; ATTEND Urology
PROC: 0T768DZ Dilation of Right Ureter with Intraluminal Device, Via Natural or Artificial Opening Endoscopic (ICD-10-PCS; principal; 2018-01-18 18:30)
DX: A41.9 Sepsis, unspecified organism (principal); N13.6 Pyonephrosis; K21.9 Gastro-esophageal reflux disease without esophagitis; E11.9 Type 2 diabetes mellitus without complications; F32.9 Major depressive disorder, single episode, unspecified; I10 Essential (primary) hypertension; Z79.4 Long term (current) use of insulin; Z79.899 Other long term (current) drug therapy; Z87.442 Personal history of urinary calculi; Z85.01 Personal history of malignant neoplasm of esophagus; Z90.49 Acquired absence of other specified parts of digestive tract
CPT/HCPCS: 36415; 74176; 80053; 81001; 85025; 96361; 96374; 96375; 96376; 99285

== ENCOUNTER → 2018-03-03 | Outpatient (CLI) | payer OTHER ==
[2018-03-03 09:12] LABS: Basophils # (A) 0.1 k/uL (0-0.2); Basophils % (A) 1 %; Eosinophils # (A) 0.3 k/uL (0-0.7); Eosinophils % (A) 5 %; HCT 37.7 % (34.0-46.0); HGB 12.3 gm/dL (11.4-16.0); Lymphocytes # (A) 1.8 k/uL (1.0-4.8); Lymphocytes % (A) 26 %; MCH 28.6 pg (25.0-35.0); MCHC 32.6 g/dL (31.0-37.0); MCV 87.9 fL (80.0-100.0); Mean Platelet Volume 7.2; Monocytes # (A) 0.4 k/uL (0-1.0); Monocytes % (A) 5 %; Neutrophils # (A) 4.2 k/uL (1.3-7.7); Neutrophils % (A) 61 %; Platelet Count 254 k/uL (150-450); RBC 4.28 m/uL (3.80-5.40); RDW 15.1 % (11.5-15.5); WBC 6.9 k/uL (3.8-10.6)
[2018-03-03 09:19] LABS: Appearance,Urine Cloudy (Clear); Bilirubin,Urine Negative (Negative); Blood,Urine Large (Negative); Color,Urine Yellow; Glucose,Urine (UA) Negative (Negative); Ketones,Urine Negative (Negative); Leukocyte Esterase,Urine Large (Negative); Mucus,Urine Rare /hpf; Nitrite,Urine Negative (Negative); PH, Urine 6.5 (5.0-8.0); Protein,Urine 1+ (Negative); RBC,Urine >182 /hpf (0-5); Specific Gravity,Urine 1.013 (1.001-1.035); Squamous Epithelial Cell,Urine 2 /hpf (0-4); Urobilinogen,Urine <2.0 mg/dL (<2.0); WBC,Urine 28 /hpf (0-5)
[2018-03-03 09:24] LABS: Anion Gap 12 mmol/L; Blood Urea Nitrogen 11 mg/dL (7-17); Calcium 8.6 mg/dL (8.4-10.2); Carbon Dioxide 27 mmol/L (22-30); Chloride 103 mmol/L (98-107); Glucose 125 mg/dL (74-99); Potassium 3.2 mmol/L (3.5-5.1); Sodium 142 mmol/L (137-145)
== END | disposition home or self-care (01) ==
LOC: LABWHC1 08:28
PROVIDERS: ATTEND Urology
DX: N20.1 Calculus of ureter (principal)
CPT/HCPCS: 36415; 80048; 81001; 85025; 87086

== ENCOUNTER 2018-03-10 16:57 | Emergency (ER) | payer OTHER ==
--- NOTE | 2018-03-10 17:46 | ED ---
General Adult HPI - General Chief complaint: Shortness of Breath Stated complaint: SOB, nausea Time Seen by Provider: 03/10/18 17:05 Source: patient, EMS Mode of arrival: EMS Limitations: no limitations - History of Present Illness Initial comments: Bette is a 52-year-old female with a past medical history of esophageal cancer status post radiation therapy she presents to the emergency department today via EMS from a surgical center or evaluation of difficulty breathing status post extubation. Patient underwent a urologic procedure earlier today, she was intubated for that procedure. After extubation patient was noted to have some stridor and complaint of shortness of breath. She was given IV steroids and racemic epinephrine nebulization with improvement in her symptoms but subsequently transferred to the emergency department for further monitoring. Upon arrival the patient is somewhat groggy and her post seizure state, she states that she has improved significantly since being extubated. At this time she has no sensation of tightness in her throat and no shortness of breath. - Related Data Home Medications Medication Instructions Recorded Confirmed Lisinopril [Prinivil] 20 mg PO DAILY 05/31/17 03/10/18 Ranitidine HCl [Zantac] 150 mg PO BID 05/31/17 03/10/18 Sertraline [Zoloft] 50 mg PO HS 05/31/17 03/10/18 metFORMIN HCL [Glucophage] 500 mg PO BID 05/31/17 03/10/18 Insulin Aspart [NovoLOG See Protocol SQ TID-W/MEALS 01/18/18 03/10/18 (formulary)] Previous Rx's Medication Instructions Recorded Sulfamethox-Tmp 800-160Mg [Bactrim 1 tab PO Q12HR #30 tab 01/20/18 DS 800-160 mg] Allergies Allergy/AdvReac Type Severity Reaction Status Date / Time No Known Allergies Allergy Verified 03/10/18 17:28 Review of Systems ROS Statement: Those systems with pertinent positive or pertinent negative responses have been documented in the HPI. ROS Other: All systems not noted in ROS Statement are negative. 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 hx bleeding ulcer, kidney stone History of Any Multi-Drug Resistant Organisms: None Reported Past Surgical History: Cholecystectomy, Tonsillectomy Additional Past Surgical History / Comment(s): surgery for esophageal cancer, rt eye surgery age 3, D&C, Past Anesthesia/Blood Transfusion Reactions: No Reported Reaction Past Psychological History: Depression Smoking Status: Never smoker Past Alcohol Use History: None Reported Past Drug Use History: None Reported - Past Family History Mother Family Medical History: No Reported History Father Family Medical History: No Reported History General Exam Limitations: no limitations General appearance: alert, in no apparent distress Head exam: Present: atraumatic, normocephalic Eye exam: Present: normal appearance, PERRL ENT exam: Present: normal exam Neck exam: Present: other (well healed surgical scars on left lateral neck) Respiratory exam: Present: normal lung sounds bilaterally. Absent: respiratory distress, wheezes, rales, rhonchi, chest wall tenderness, accessory muscle use, decreased breath sounds, prolonged expiratory Cardiovascular Exam: Present: regular rate, normal rhythm GI/Abdominal exam: Present: soft. Absent: distended Rectal exam: Present: deferred Extremities exam: Present: normal inspection Back exam: Present: normal inspection Neurological exam: Present: alert Psychiatric exam: Present: normal affect, normal mood Skin exam: Present: warm, dry Course Vital Signs 03/10/18 03/10/18 17:02 21:08 Temperature 98.0 F 97.9 F Pulse Rate 90 83 Respiratory 18 17 Rate Blood Pressure 155/71 170/74 O2 Sat by Pulse 100 97 Oximetry - Reevaluation(s) Reevaluation #1: Patient reevaluated, resting comfortably, no complaints of shortness of breath or chest tightness 03/10/18 17:46 Reevaluation #2: The patient continues to rest comfortably, no stridor, no shortness of breath 03/10/18 18:38 Reevaluation #3: has rested comfortably throughout her ER stay, she is now more awake and alert, no longer appears to be under the influence of anesthesia medications. States that she is feeling quite well. States she feels much better than earlier. No shortness breath, no tightness in her chest. Flexion saturations remain 99% 200% on room air. Skin the patient would like to be discharged home. 03/10/18 20:17 Medical Decision Making - Medical Decision Making Patient was seen and evaluated, history was obtained from physician at the surgical center as well as EMS and the patient Patient had episode of stridor after extubation, patient was given Decadron and racemic epinephrine with resolution of her symptoms, patient was subsequently transferred to the ER for observation Upon initial arrival patient is somewhat groggy, appears to still be under the influence of her sedation medications, however she is in no respiratory distress , she is not tachypneic, she has no increased work of breathing, no stridor, her oxygen saturation is 99-100% on 2 L of supplemental oxygen Patient was observed for nearly 4 hours, she became less groggy and able to answer questions more clearly. She reported feeling quite well with no complaints. She did recall feeling somewhat or extubation but states that she has been feeling fine throughout her entire emergency department stay. At this time the patient feel she is stable for discharge home. I agree the patient is stable for discharge home I advised the patient that should she develop any recurrent stridor she should call [address] to [address] for have a friend drive her to the hospital. I discussed this plan with the patient's boyfriend Jono at bedside and advised him that if he hears any abnormal breathing he is to call 911 immediately. Both the patient and her significant other expressed understanding and agreement with this plan. All questions pertaining to care were answered to the best my ability and the patient was discharged home. Disposition Clinical Impression: Stridulous breathing Disposition: HOME SELF-CARE Condition: Good Instructions: Bronchospasm (ED) Is patient prescribed a controlled substance at d/c from ED?: No Referrals: Nonstaff,Physician [Primary Care Provider] - 1-2 days Time of Disposition: 20:34
--- NOTE | 2018-03-10 19:28 | XR ---
EXAMINATION TYPE: XR chest 2V DATE OF EXAM: 03/10/2018 COMPARISON: NONE HISTORY: Short of breath TECHNIQUE: Frontal and lateral views of the chest are obtained. FINDINGS: There is some mild linear density at the left lung base. There is no heart failure. There is dilated air filled esophagus. This could be gastric pull-through procedure. There is no heart fail ure. Heart size is normal. I see no pleural effusion. Bony thorax is intact. IMPRESSION: Minimal subsegmental atelectasis at the left lung base. Previous surgery. No heart failu re or pulmonary consolidation.
[2018-03-10 21:10] VITALS: BP 170/74; PULSE 83; RESP 17; TEMP 97.9
== END 2018-03-10 21:09 | disposition home or self-care (01) ==
LOC: EC 16:57
DX: R06.1 Stridor (principal); E11.9 Type 2 diabetes mellitus without complications; I10 Essential (primary) hypertension; K21.9 Gastro-esophageal reflux disease without esophagitis; F32.9 Major depressive disorder, single episode, unspecified; Z85.01 Personal history of malignant neoplasm of esophagus; Z79.4 Long term (current) use of insulin; Z79.899 Other long term (current) drug therapy; Z92.3 Personal history of irradiation
CPT/HCPCS: 71046; 99285

== ENCOUNTER 2018-07-17 11:30 | Emergency (ER) | payer OTHER ==
[2018-07-17 11:36] VITALS: BP 144/82; PULSE 85; RESP 20; TEMP 98.5
--- NOTE | 2018-07-17 11:55 | ED ---
SOB HPI - General Chief Complaint: Shortness of Breath Stated Complaint: HERBERT Time Seen by Provider: 07/17/18 11:37 Source: EMS, RN notes reviewed, old records reviewed Mode of arrival: EMS Limitations: language barrier - History of Present Illness Initial Comments: This is a 33-year-old female the ER for evaluation shortness of breath. Patient called EMS secondary shortness of breath secondary to blood being in her trach, patient at this time states all symptoms are resolved, she has no complaints no shortness of breath states she would like to be discharged home MD Complaint: shortness of breath -: hour(s) Quality: aching Consistency: constant, now resolved Improves With: nothing Worsens With: nothing Known History Of: other Context: other Associated Symptoms: denies other symptoms - Related Data Home Medications Medication Instructions Recorded Confirmed Lisinopril [Prinivil] 20 mg PO DAILY 05/31/17 07/17/18 Ranitidine HCl [Zantac] 150 mg PO BID 05/31/17 07/17/18 Sertraline [Zoloft] 50 mg PO HS 05/31/17 07/17/18 metFORMIN HCL [Glucophage] 500 mg PO BID 05/31/17 07/17/18 Insulin Aspart [NovoLOG 2 unit SQ [id number] PRN 01/18/18 07/17/18 (formulary)] Allergies Allergy/AdvReac Type Severity Reaction Status Date / Time No Known Allergies Allergy Verified 07/17/18 11:59 Review of Systems ROS Statement: Those systems with pertinent positive or pertinent negative responses have been documented in the HPI. ROS Other: All systems not noted in ROS Statement are negative. 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 hx bleeding ulcer, kidney stone History of Any Multi-Drug Resistant Organisms: None Reported Past Surgical History: Cholecystectomy, Tonsillectomy Additional Past Surgical History / Comment(s): surgery for esophageal cancer, rt eye surgery age 3, D&C, Past Anesthesia/Blood Transfusion Reactions: No Reported Reaction Past Psychological History: Depression Smoking Status: Never smoker Past Alcohol Use History: None Reported Past Drug Use History: None Reported - Past Family History Mother Family Medical History: No Reported History Father Family Medical History: No Reported History General Exam Limitations: language barrier General appearance: alert, in no apparent distress Head exam: Present: atraumatic, normocephalic, normal inspection Eye exam: Present: normal appearance, PERRL, EOMI. Absent: scleral icterus, conjunctival injection, periorbital swelling ENT exam: Present: normal exam, mucous membranes moist Neck exam: Present: normal inspection. Absent: tenderness, meningismus, lymphadenopathy Respiratory exam: Present: normal lung sounds bilaterally. Absent: respiratory distress, wheezes, rales, rhonchi, stridor Cardiovascular Exam: Present: regular rate, normal rhythm, normal heart sounds. Absent: systolic murmur, diastolic murmur, rubs, gallop, clicks GI/Abdominal exam: Present: soft, normal bowel sounds. Absent: distended, tenderness, guarding, rebound, rigid Extremities exam: Present: normal inspection, full ROM, normal capillary refill. Absent: tenderness, pedal edema, joint swelling, calf tenderness Back exam: Present: normal inspection Neurological exam: Present: alert, oriented X3, CN II-XII intact Psychiatric exam: Present: normal affect, normal mood Skin exam: Present: warm, dry, intact, normal color. Absent: rash Course Vital Signs 07/17/18 11:31 Temperature 98.5 F Pulse Rate 85 Respiratory 20 Rate Blood Pressure 144/82 O2 Sat by Pulse 99 Oximetry Medical Decision Making - Medical Decision Making 53 female the ER for evaluation patient has a for evaluation regarding shortness of breath shortness of breath is resolved upon initial arrival to ER patient can be discharged home Disposition Clinical Impression: Well adult exam Disposition: HOME SELF-CARE Condition: Good Instructions: Normal Exam (ED) Is patient prescribed a controlled substance at d/c from ED?: No Referrals: Nonstaff,Physician [Primary Care Provider] - 1-2 days
== END 2018-07-17 12:15 | disposition home or self-care (01) ==
LOC: EC 11:30
DX: Z00.00 Encounter for general adult medical examination without abnormal findings (principal); I10 Essential (primary) hypertension; E11.9 Type 2 diabetes mellitus without complications; K21.9 Gastro-esophageal reflux disease without esophagitis; F32.9 Major depressive disorder, single episode, unspecified; Z79.84 Long term (current) use of oral hypoglycemic drugs; Z79.899 Other long term (current) drug therapy; Z85.01 Personal history of malignant neoplasm of esophagus; Z87.19 Personal history of other diseases of the digestive system; Z98.890 Other specified postprocedural states
CPT/HCPCS: 99285

== ENCOUNTER 2018-07-17 20:52 | Inpatient (IN) | payer OTHER ==
[2018-07-17 21:25] LABS: Glucose,Whole Blood 296 mg/dL (75-99)
--- NOTE | 2018-07-17 21:48 | ED ---
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 The patient had been seen here earlier in the day for similar symptoms. She had reportedly felt she had a mucous plug in her tracheostomy at that time. The patient had been seen here, was observed for a period and went home. Tonight the symptoms are reportedly recurred and she comes back by ambulance. When I interview the patient, she is denying any pain at all, including no chest pain. She is complaining mainly of a cough with some clearish sputum, and a feeling that this is occluding her tracheostomy. The patient is denying other symptoms, no abdominal pain, no change in bowel movements, urination, or is there any vomiting. No fever or chills. Onset/Timin -: days(s) Associated Symptoms: cough - Related Data Home Medications Medication Instructions Recorded Confirmed Lisinopril [Prinivil] 20 mg PO DAILY 05/31/17 07/17/18 Ranitidine HCl [Zantac] 150 mg PO BID 05/31/17 07/17/18 Sertraline [Zoloft] 50 mg PO HS 05/31/17 07/17/18 metFORMIN HCL [Glucophage] 500 mg PO BID 05/31/17 07/17/18 Insulin Aspart [NovoLOG 2 unit SQ AC-BRKFST PRN 01/18/18 07/17/18 (formulary)] Allergies Allergy/AdvReac Type Severity Reaction Status Date / Time No Known Allergies Allergy Verified 07/17/18 21:10 Review of Systems ROS Statement: Those systems with pertinent positive or pertinent negative responses have been documented in the HPI. ROS Other: All systems not noted in ROS Statement are negative. Constitutional: Denies: fever, chills Respiratory: Reports: as per HPI, cough, dyspnea. Denies: hemoptysis Cardiovascular: Denies: chest pain, dyspnea on exertion, orthopnea, edema, syncope Gastrointestinal: Denies: abdominal pain, nausea, vomiting, diarrhea Genitourinary: Denies: dysuria Musculoskeletal: Denies: back pain Skin: Denies: rash Neurological: Denies: headache Past Medical History Past Medical History: Cancer, Diabetes Mellitus, GERD/Reflux, GI Bleed, Hypertension Additional Past Medical History / Comment(s): esophogeal cancer. hx bleeding ulcer, kidney stone History of Any Multi-Drug Resistant Organisms: None Reported Past Surgical History: Cholecystectomy, Tonsillectomy Additional Past Surgical History / Comment(s): surgery for esophageal cancer, rt eye surgery age 3, D&C, Past Anesthesia/Blood Transfusion Reactions: No Reported Reaction Past Psychological History: Depression Smoking Status: Never smoker Past Alcohol Use History: None Reported Past Drug Use History: None Reported - Past Family History Mother Family Medical History: No Reported History Father Family Medical History: No Reported History General Exam Limitations: physical limitation General appearance: alert, in no apparent distress Head exam: Present: atraumatic, normocephalic Eye exam: Present: normal appearance. Absent: scleral icterus, conjunctival injection Neck exam: Present: other (Patient has a tracheostomy and did cough some clearish sputum from this during the exam.) Respiratory exam: Present: rhonchi. Absent: respiratory distress, wheezes, rales, stridor, accessory muscle use, decreased breath sounds, prolonged expiratory Cardiovascular Exam: Present: regular rate, normal rhythm, normal heart sounds. Absent: systolic murmur, diastolic murmur, rubs, gallop GI/Abdominal exam: Present: soft. Absent: distended, tenderness, guarding, rebound Extremities exam: Present: normal inspection, normal capillary refill. Absent: pedal edema, calf tenderness Back exam: Present: normal inspection. Absent: CVA tenderness (R), CVA tenderness (L) Neurological exam: Present: alert Skin exam: Present: warm, dry, intact, pallor. Absent: rash Course Vital Signs 07/17/18 07/17/18 07/17/18 21:02 21:30 22:00 Temperature 97.6 F Pulse Rate 96 82 104 H Respiratory 20 20 18 Rate Blood Pressure 175/101 142/94 128/84 O2 Sat by Pulse 98 98 100 Oximetry 07/17/18 07/17/18 07/17/18 22:30 23:00 23:30 Temperature 97.8 F Pulse Rate 70 71 68 Respiratory 22 18 20 Rate Blood Pressure 146/94 130/78 131/75 O2 Sat by Pulse 99 99 100 Oximetry Medical Decision Making - Medical Decision Making Additional history taking revealed that the patient, with the earlier episode had apparently had such severe respiratory distress that she had become cyanotic and her brother had actually delivered some rescue breaths through the tracheostomy. The patient then did began having respirations again and coughing. The labs here now reveal that the patient has an elevated troponin. The patient remains symptom-free throughout her course here. She is not having chest pain, dyspnea, diaphoresis. Did discuss the case with cardiology and there treatment recommendations are incorporated and they will see the patient first thing - Lab Data Result diagrams: 07/17/18 21:48 07/18/18 05:29 Lab Results 07/17/18 07/17/18 07/17/18 Range/Units 21:24 21:48 21:48 WBC 7.9 (3.8-10.6) k/uL RBC 3.94 (3.80-5.40) m/uL Hgb 11.4 (11.4-16.0) gm/dL Hct 35.0 (34.0-46.0) % MCV 89.0 (80.0-100.0) fL MCH 29.0 (25.0-35.0) pg MCHC 32.6 (31.0-37.0) g/dL RDW 15.0 (11.5-15.5) % Plt Count 294 (150-450) k/uL Neutrophils % 69 % Lymphocytes % 25 % Monocytes % 3 % Eosinophils % 2 % Basophils % 0 % Neutrophils # 5.4 (1.3-7.7) k/uL Lymphocytes # 1.9 (1.0-4.8) k/uL Monocytes # 0.2 (0-1.0) k/uL Eosinophils # 0.1 (0-0.7) k/uL Basophils # 0.0 (0-0.2) k/uL Sodium 137 (137-145) mmol/L Potassium 3.0 L (3.5-5.1) mmol/L Chloride 101 (98-107) mmol/L Carbon Dioxide 20 L (22-30) mmol/L Anion Gap 16 mmol/L BUN 9 (7-17) mg/dL Creatinine 0.57 (0.52-1.04) mg/dL Est GFR (CKD-EPI)AfAm >90 (>60 ml/min/1.73 sqM) Est GFR (CKD-EPI)NonAf >90 (>60 ml/min/1.73 sqM) Glucose 320 H (74-99) mg/dL POC Glucose (mg/dL) 296 H (75-99) mg/dL POC Glu Wind Turbine Engineer ID Jammie Graf Calcium 8.5 (8.4-10.2) mg/dL Magnesium 1.3 L (1.6-2.3) mg/dL Total Bilirubin 0.4 (0.2-1.3) mg/dL AST 33 (14-36) U/L ALT 20 (9-52) U/L Alkaline Phosphatase 55 (38-126) U/L Troponin I (0.000-0.034) ng/mL NT-Pro-B Natriuret Pep pg/mL Total Protein 6.8 (6.3-8.2) g/dL Albumin 3.5 (3.5-5.0) g/dL 07/17/18 07/17/18 Range/Units 21:48 21:48 WBC (3.8-10.6) k/uL RBC (3.80-5.40) m/uL Hgb (11.4-16.0) gm/dL Hct (34.0-46.0) % MCV (80.0-100.0) fL MCH (25.0-35.0) pg MCHC (31.0-37.0) g/dL RDW (11.5-15.5) % Plt Count (150-450) k/uL Neutrophils % % Lymphocytes % % Monocytes % % Eosinophils % % Basophils % % Neutrophils # (1.3-7.7) k/uL Lymphocytes # (1.0-4.8) k/uL Monocytes # (0-1.0) k/uL Eosinophils # (0-0.7) k/uL Basophils # (0-0.2) k/uL Sodium (137-145) mmol/L Potassium (3.5-5.1) mmol/L Chloride (98-107) mmol/L Carbon Dioxide (22-30) mmol/L Anion Gap mmol/L BUN (7-17) mg/dL Creatinine (0.52-1.04) mg/dL Est GFR (CKD-EPI)AfAm (>60 ml/min/1.73 sqM) Est GFR (CKD-EPI)NonAf (>60 ml/min/1.73 sqM) Glucose (74-99) mg/dL POC Glucose (mg/dL) (75-99) mg/dL POC Glu Wind Turbine Engineer ID Calcium (8.4-10.2) mg/dL Magnesium (1.6-2.3) mg/dL Total Bilirubin (0.2-1.3) mg/dL AST (14-36) U/L ALT (9-52) U/L Alkaline Phosphatase (38-126) U/L Troponin I 2.170 H* (0.000-0.034) ng/mL NT-Pro-B Natriuret Pep 2050 pg/mL Total Protein (6.3-8.2) g/dL Albumin (3.5-5.0) g/dL Disposition Clinical Impression: NSTEMI (non-ST elevated myocardial infarction), Elevated troponin I level Disposition: ADMITTED IP TO THIS HOSP Condition: Fair Is patient prescribed a controlled substance at d/c from ED?: No
[2018-07-17 21:58] LABS: Basophils % (A) 0 %; Eosinophils # (A) 0.1 k/uL (0-0.7); Eosinophils % (A) 2 %; HGB 11.4 gm/dL (11.4-16.0); Lymphocytes # (A) 1.9 k/uL (1.0-4.8); Lymphocytes % (A) 25 %; MCHC 32.6 g/dL (31.0-37.0); Mean Platelet Volume 7.5; Monocytes # (A) 0.2 k/uL (0-1.0); Monocytes % (A) 3 %; Neutrophils # (A) 5.4 k/uL (1.3-7.7); Neutrophils % (A) 69 %; Platelet Count 294 k/uL (150-450); RBC 3.94 m/uL (3.80-5.40); WBC 7.9 k/uL (3.8-10.6)
[2018-07-17 22:08] LABS: ALT 20 U/L (9-52); AST 33 U/L (14-36); Albumin 3.5 g/dL (3.5-5.0); Alkaline Phosphatase 55 U/L (38-126); Anion Gap 16 mmol/L; Blood Urea Nitrogen 9 mg/dL (7-17); Calcium 8.5 mg/dL (8.4-10.2); Carbon Dioxide 20 mmol/L (22-30); Chloride 101 mmol/L (98-107); Glucose 320 mg/dL (74-99); Magnesium 1.3 mg/dL (1.6-2.3); Sodium 137 mmol/L (137-145); Total Bilirubin 0.4 mg/dL (0.2-1.3); Total Protein 6.8 g/dL (6.3-8.2)
--- NOTE | 2018-07-17 22:13 | XR ---
EXAMINATION TYPE: XR chest 1V DATE OF EXAM: 07/17/2018 COMPARISON: 03/10/2018 HISTORY: Clogged tracheostomy TECHNIQUE: Single frontal view of the chest is obtained. FINDINGS: There is tracheostomy tube. There is apparent large hiatal hernia. This appears to contain the proximal jejunum that is demonstrated by the CT scan of 01/18/2018. There is no heart failure. Th ere are chest leads. There is right central venous catheter with the tip in the superior vena cava. T here is no heart failure. There is apparent dilated air and fluid-filled esophagus. This apparently i s a gastric pull-through procedure that should be correlated with the history. IMPRESSION: No evidence of heart failure or pulmonary consolidation. Hiatal hernia is increased in s ize compared to last exam.
[2018-07-17] MEDS ORDERED: INSULIN REGULAR 100 UNIT/ML VIAL SQ STA (22:18)
[2018-07-17] MEDS ORDERED: SODIUM CHLORIDE 0.9% 500 ML 500 ML IV STA (22:18)
[2018-07-17] MEDS ORDERED: POTASSIUM BICARBONATE/CIT AC 20 MEQ TABLET.EFF PO ONE (22:19)
[2018-07-17] MEDS ORDERED: NITROGLYCERIN SL TABS 0.4 MG TAB SUBLINGUAL PRN (23:25)
[2018-07-17] MEDS ORDERED: HEPARIN SODIUM,PORCINE 5,000 UNIT/ML 1 ML VIAL IV ONE (23:25)
[2018-07-17] MEDS: HEPARIN SOD,PORK IN 0.45% NACL 25,000 UNIT in 0.45% NACL 1 500ML.BAG IV SCH (23:47)
[2018-07-17] MEDS ORDERED: ASPIRIN 81 MG PO STA (23:54)
--- NOTE | 2018-07-18 00:48 | P.HPIM ---
History of Present Illness H&P Date: 07/18/18 Chief Complaint: Shortness of breath This patient is a 53-year-old woman with history of tracheostomy since June 02 due to laryngeal cancer, who presents to have evaluation for coughing and dyspnea. The patient had been seen here earlier in the day for similar symptoms. She had reportedly felt she had a mucous plug in her tracheostomy at that time. The patient had been seen here, was observed for a period and went home. Tonight the symptoms are reportedly recurred and she comes back by ambulance. Patient's brother reported that the patient became acutely short of breath and became quite dean. Patient denies any pain at all, including no chest pain. She is complaining mainly of a cough with some clearish sputum, and a feeling that this is occluding her tracheostomy. The patient has been out of Mucomyst for the last 2 days and prior to that had not been very compliant with using her myster. Apparently the patient was also seen in home by speech therapy some time ago but appears to have been lost in follow-up. The patient is denying other symptoms, no abdominal pain, no change in bowel movements, urination, or is there any vomiting. No fever or chills. Patient has not previous a been here and has had multiple workup done at [facility] Patient received a comprehensive workup in the ER was noted to have elevated serum troponin at 2.17 elevated NT proBNP at 2170 with serum potassium at 3.0 and serum bicarbonate 20 with blood sugar of 320. EKG is negative for any suggestion of any acute ischemia Review of Systems Prior process per HPI all other review of systems otherwise negative Past Medical History Past Medical History: Cancer, Diabetes Mellitus, GERD/Reflux, GI Bleed, Hypertension Additional Past Medical History / Comment(s): esophogeal cancer. hx bleeding ulcer, kidney stone History of Any Multi-Drug Resistant Organisms: None Reported Past Surgical History: Cholecystectomy, Tonsillectomy Additional Past Surgical History / Comment(s): surgery for esophageal cancer, rt eye surgery age 3, D&C, Past Anesthesia/Blood Transfusion Reactions: No Reported Reaction Past Psychological History: Depression Smoking Status: Never smoker Past Alcohol Use History: None Reported Past Drug Use History: None Reported - Past Family History Mother Family Medical History: No Reported History Father Family Medical History: No Reported History Medications and Allergies Home Medications Medication Instructions Recorded Confirmed Type Lisinopril [Prinivil] 20 mg PO DAILY 05/31/17 07/17/18 History Ranitidine HCl [Zantac] 150 mg PO BID 05/31/17 07/17/18 History Sertraline [Zoloft] 50 mg PO HS 05/31/17 07/17/18 History metFORMIN HCL [Glucophage] 500 mg PO BID 05/31/17 07/17/18 History Insulin Aspart [NovoLOG 2 unit SQ AC-BRKFST PRN 01/18/18 07/17/18 History (formulary)] Allergies Allergy/AdvReac Type Severity Reaction Status Date / Time No Known Allergies Allergy Verified 07/17/18 21:10 Physical Exam Vitals: Vital Signs Temp Pulse Resp BP Pulse Ox 07/17/18 23:00 71 18 130/78 99 07/17/18 22:30 70 22 146/94 99 07/17/18 22:00 104 H 18 128/84 100 07/17/18 21:30 82 20 142/94 98 07/17/18 21:02 97.6 F 96 20 175/101 98 Intake and Output 07/17/18 07/17/18 07/18/18 14:59 22:59 06:59 Other: Weight 99.79 kg Constitutional: No acute distress, conversant, pleasant Eyes: Anicteric sclerae, moist conjunctiva, no lid-lag, PERRLA ENMT: NC/AT,Oropharynx clear, no erythema, exudates Neck:Supple, FROM, no masses, or JVD, No carotid bruits; No thyromegaly Lungs: Noted rhonchi, tracheostomy in place with clear sputum, diminished in the bases Normal respiratory effort, no accessory muscle use Cardiovascular: Heart regular in rate and rhythm, No murmurs, gallops, or rubs no peripheral edema Abdominal: Soft Nontender, nom distended, no guarding, no rebound or rigidity, Normoactive bowel sounds No hepatomegaly, No splenomegaly, No palpable mass No abdominal wall hernia noted Skin: Normal temperature, tone, texture, turgor, No induration No subcutaneous nodules, No rash, lesions, No ulcers Extremities:No digital cyanosis No clubbing, Pedal pulses intact and symmetrical Radial pulses intact and symmetrical Normal gait and station, No calf tenderness Psychiatric: Alert and oriented to person, place and time, Appropriate affect Intact judgement Neuro: Muscles Strength 5/5 in all 4 extremities, Sensation to light touch grossly present throughout, Cranial nerves II-XII grossly intact. No focal sensory deficits Results CBC & Chem 7: 07/17/18 21:48 07/17/18 21:48 Labs: Abnormal Lab Results - Last 24 Hours (Table) 07/17/18 07/17/18 07/17/18 Range/Units 21:24 21:48 21:48 Potassium 3.0 L (3.5-5.1) mmol/L Carbon Dioxide 20 L (22-30) mmol/L Glucose 320 H (74-99) mg/dL POC Glucose (mg/dL) 296 H (75-99) mg/dL Magnesium 1.3 L (1.6-2.3) mg/dL Troponin I 2.170 H* (0.000-0.034) ng/mL Assessment and Plan (1) Elevated troponin I level Current Visit: Yes Status: Acute Code(s): R74.8 - ABNORMAL LEVELS OF OTHER SERUM ENZYMES SNOMED Code(s): 916794354 (2) History of laryngeal cancer Current Visit: Yes Status: Acute Code(s): Z85.21 - PERSONAL HISTORY OF MALIGNANT NEOPLASM OF LARYNX SNOMED Code(s): 461047347 (3) Tracheostomy in place Current Visit: Yes Status: Acute Code(s): Z93.0 - TRACHEOSTOMY STATUS SNOMED Code(s): 005337731 (4) Type 2 diabetes mellitus with hyperglycemia Current Visit: Yes Status: Acute Code(s): E11.65 - TYPE 2 DIABETES MELLITUS WITH HYPERGLYCEMIA SNOMED Code(s): 418167648943438 (5) Hypertension Current Visit: No Status: Acute Code(s): I10 - ESSENTIAL (PRIMARY) HYPERTENSION SNOMED Code(s): 71842050 (6) Hypomagnesemia Current Visit: Yes Status: Acute Code(s): E83.42 - HYPOMAGNESEMIA SNOMED Code(s): 157486798 Plan: The patient is admitted anticipated greater than 2 midnight stay with elevated serum troponin at 2.170 negative EKG for acute ischemia without symptoms of chest pain, concern for underlying NSTEMI, coronary artery disease given risk factors. Patient is started on routine NSTEM orders and started on antiplatelet therapy with aspirin, initiated on IV heparin drip with plans for cardiology consultation the morning. We'll continue to trend cardiac enzymes sequentially. We'll plan to also consult pulmonology, speech therapy, physical therapy to see the patient. The patient's antihypertensive and diabetic regimen was resumed with plans for correctional scale coverage. Will follow up with consultants recommendations and continue to follow her clinical course. CODE STATUS Full code Care discussed with: Patient significant other Jono &; brother Jono Anticipate discharge in 1-2 days
[2018-07-18 00:56] VITALS: BMI 29.2
[2018-07-18 01:23] LABS: Glucose,Whole Blood 259 mg/dL (75-99)
[2018-07-18] MEDS: INSULIN ASPART 100 UNIT/ML 1 ML 10 ML VIAL SQ SCH ×5 (01:31→21:53)
[2018-07-18] MEDS: MAGNESIUM SULFATE-D5W PMX 1 GM in DEXTROSE/WATER 1 100ML.BAG IVPB SCH ×3 (02:06→04:20)
[2018-07-18 05:58] LABS: Glucose,Whole Blood 129 mg/dL (75-99)
[2018-07-18 06:13] LABS: Anion Gap 7 mmol/L; Blood Urea Nitrogen 9 mg/dL (7-17); Calcium 7.8 mg/dL (8.4-10.2); Carbon Dioxide 28 mmol/L (22-30); Chloride 102 mmol/L (98-107); Cholesterol 133 mg/dL (<200); Glucose 127 mg/dL (74-99); HDL Cholesterol 58 mg/dL (40-60); LDL Cholesterol,Calculated 58 mg/dL (0-99); Magnesium 2.2 mg/dL (1.6-2.3); Potassium 3.3 mmol/L (3.5-5.1); Sodium 137 mmol/L (137-145); Triglycerides 84 mg/dL (<150)
[2018-07-18 06:34] LABS: Creatine Kinase MB 5.2 ng/mL (0.0-2.4)
[2018-07-18 06:38] LABS: Troponin I 1.13 ng/mL (0.000-0.034)
[2018-07-18] MEDS ORDERED: POTASSIUM BICARBONATE/CIT AC 20 MEQ TABLET.EFF PO ONE (08:00)
[2018-07-18] MEDS: guaiFENesin 600 MG TABLET.ER PO SCH ×2 (08:03→20:39)
[2018-07-18] MEDS: FAMOTIDINE 20 MG TAB PO SCH ×2 (08:03→20:39)
[2018-07-18] MEDS: LISINOPRIL 20 MG TAB PO SCH (08:03)
[2018-07-18] MEDS: ASPIRIN 81 MG PO SCH (08:52)
[2018-07-18] MEDS ORDERED: metFORMIN 500 MG TAB PO SCH (09:00)
[2018-07-18] MEDS ORDERED: METOPROLOL TARTRATE 12.5 MG TAB PO SCH (09:00)
[2018-07-18] MEDS ORDERED: ASPIRIN 325 MG TAB PO SCH (09:00)
--- NOTE | 2018-07-18 09:37 | P.PN ---
Subjective Progress Note Date: 07/18/18 Principal diagnosis: shortness of breath ABGs, and hypertension who presented for evaluation of cough and shortness of breath. In the ER she underwent an extensive evaluation. She was found to have an EKG that did not show any signs of acute ischemia but her troponin was elevated at 2.17, BNP 2170, potassium 3, magnesium 1.3, and bicarbonate 20. She was given replacement of magnesium and potassium in the ER. She was started on a heparin drip. Arrangements were made for admission and cardiology consultation. Patient is currently getting all her cancer treatment. [facility] Walters. She follows with Dr. Mckeon for medical oncology and Dr. Dang for radiation oncology. She is currently getting radiation to the chest area, she is unsure of the exact location. She recently had a port put in and is undergoing chemotherapy but she does not know her regiment. She has a history of a stent in the past. She reports that her shortness of breath is improved and her cough is improved. She continues to have thick purulent sputum which is difficult to cough up. She denies any chest pain, nausea, or vomiting at this point in time. She states that it is easy to swallow and she is not having any difficulty. She is currently on a regular diet. She has home health care with J[facility]. Objective - Vital Signs Vital signs: Vital Signs Temp 98.1 F 07/18/18 08:00 Pulse 74 07/18/18 08:09 Resp 20 07/18/18 08:09 BP 145/87 07/18/18 08:00 Pulse Ox 100 07/18/18 08:00 Intake & Output 07/17/18 07/18/18 07/18/18 18:59 06:59 18:59 Intake Total 932.335 Balance 932.335 Weight 84.822 kg Intake: Intake, IV Titration 932.335 Amount Heparin Sod,Pork in 0.45% 132.335 NaCl 25,000 unit In 0.45 % NaCl 1 500ml.bag @ 10 UNITS/KG/HR 19.95 mls/hr IV .Q24H SHELBY Rx#: [id number] Magnesium Sulfate-D5w Pmx 300 1 gm In Dextrose/Water 1 100ml.bag @ 100 mls/hr IVPB Q1H SHELBY Rx#: [id number] Sodium Chloride 0.9% 500 500 ml 500 ml @ 1000 mls/hr IV .Q30M STA Rx#: [id number] Other: Voiding Method Toilet # Voids 1 - Exam General: ill appearing, no distress, appears at stated age Derm: warm, dry, healing incision over right chest wall, Mediport palpable-no warmth/erythema/purulent drainage Head: atraumatic, normocephalic, symmetric Eyes: EOMI, no lid lag, anicteric sclera Mouth: no lip lesion, mucus membranes moist Cardiovascular: S1S2 reg, no murmur, positive posterior tibial pulse bilateral, Lungs: course bilateral, no rhonchi, no rales , no accessory muscle use Abdominal: soft, nontender to palpation, no guarding, no appreciable organomegaly Ext: no gross muscle atrophy, no edema, no contractures Neuro: CN II-XI grossly intact, no focal neuro deficits Psych: Alert, oriented, appropriate affect - Labs CBC & Chem 7: 07/17/18 21:48 07/18/18 05:29 Labs: Abnormal Lab Results - Last 24 Hours (Table) 07/17/18 07/17/18 07/17/18 Range/Units 21:24 21:48 21:48 APTT (22.0-30.0) sec Potassium 3.0 L (3.5-5.1) mmol/L Carbon Dioxide 20 L (22-30) mmol/L Creatinine (0.52-1.04) mg/dL Glucose 320 H (74-99) mg/dL POC Glucose (mg/dL) 296 H (75-99) mg/dL Calcium (8.4-10.2) mg/dL Magnesium 1.3 L (1.6-2.3) mg/dL CK-MB (CK-2) (0.0-2.4) ng/mL Troponin I 2.170 H* (0.000-0.034) ng/mL 07/18/18 07/18/18 07/18/18 Range/Units 01:20 05:29 05:29 APTT (22.0-30.0) sec Potassium 3.3 L (3.5-5.1) mmol/L Carbon Dioxide (22-30) mmol/L Creatinine 0.45 L (0.52-1.04) mg/dL Glucose 127 H (74-99) mg/dL POC Glucose (mg/dL) 259 H (75-99) mg/dL Calcium 7.8 L (8.4-10.2) mg/dL Magnesium (1.6-2.3) mg/dL CK-MB (CK-2) 5.2 H (0.0-2.4) ng/mL Troponin I 1.130 H* (0.000-0.034) ng/mL 07/18/18 07/18/18 Range/Units 05:29 05:57 APTT 35.5 H (22.0-30.0) sec Potassium (3.5-5.1) mmol/L Carbon Dioxide (22-30) mmol/L Creatinine (0.52-1.04) mg/dL Glucose (74-99) mg/dL POC Glucose (mg/dL) 129 H (75-99) mg/dL Calcium (8.4-10.2) mg/dL Magnesium (1.6-2.3) mg/dL CK-MB (CK-2) (0.0-2.4) ng/mL Troponin I (0.000-0.034) ng/mL Assessment and Plan Assessment: Non-STEMI -Cardiology consultation -Continue with aspirin, heparin drip, beta lindsey -Attempt to obtain records from oncology to determine location of Radiation therapy as well as current chemotherapy regimen -As needed nitro -Lipid profile within normal range LDL 58, HDL 58 Purulent tracheobronchitis -Start Levaquin -Sputum culture -Mucomyst, albuterol as needed -Trach care Diabetes mellitus type 2 with hyperglycemia on arrival -Sliding-scale insulin -Hold metformin at this time until cardiac evaluation is complete -Check hemoglobin A1c Hypertension, Urgency on arrival with a blood pressure 175/101 -Currently controlled -Continue home lisinopril, metoprolol at 25 twice a day Hypokalemia - replace and recheck in [facility] - -Attempt to obtain records from oncology to determine location of Radiation therapy as well as current chemotherapy regimen DVT prophylaxis: Heparin gtt Discussed with: Patient, nursing Anticipated discharge: 24-[address]: home with home health A total of 25 minutes was spent on the care of this complex patient more than 50 % of the time was spent in counseling and care coordination.
[2018-07-18] MEDS: METOPROLOL TARTRATE 25 MG TAB PO SCH ×2 (11:03→20:39)
[2018-07-18] MEDS: LEVOFLOXACIN 500 MG TAB PO SCH (11:07)
[2018-07-18] MEDS: ATORVASTATIN 40 MG TAB PO SCH (11:07)
[2018-07-18 11:52] LABS: Glucose,Whole Blood 137 mg/dL (75-99)
[2018-07-18 12:51] LABS: Creatine Kinase MB 3.5 ng/mL (0.0-2.4)
--- NOTE | 2018-07-18 13:07 | CONS ---
CONSULTATION Mrs. Hurley is a 53-year-old female who is followed in [facility] who presented to the emergency room with symptoms of acute dyspnea. The patient has a known history of laryngeal CA status post tracheostomy done about 4 years ago. Recently, she was diagnosed with recurrence and has been receiving chemotherapy. Her last course of chemotherapy was on Saturday. She presented to the emergency room twice yesterday with symptoms of acute dyspnea and had a mucus plug in her tracheostomy. Cardiology consultation was requested because of an elevation of her troponin. The patient, on presentation, was quite hypoxic. She is feeling well this morning. She denies any symptoms of chest pain. She has no prior cardiac history. She denies any dizziness or palpitation. She denies any PND, orthopnea, or peripheral edema. She had no recent cardiac workup, but no prior cardiac history. Her coronary risk factors are remarkable for hypertension, diabetes mellitus. She is a nonsmoker. Her lipid profile is not available to me. MEDICATION: Include metformin, sertraline 50 mg daily, ranitidine, Prinivil 20 mg daily and insulin. REVIEW OF SYSTEMS: Respiratory system: She has tracheostomy, the episode of dyspnea. GI system: No recent GI bleed. No peptic ulcer disease. system: No recent dysuria or hematuria. She had a prior intervention by Dr. Messer with an obstructing stone in the right proximal ureter in December of this year. Nervous system: No history of stroke or seizure. PHYSICAL EXAMINATION: She is a 53-year-old female, alert, oriented, in no apparent distress. Blood pressure 145/80 with a heart rate in the 70s. HEAD: Normocephalic. Eyes: Sclerae anicteric. Neck: With tracheostomy in place. LUNGS: Clear to auscultation with a few scattered end-expiratory wheezes. HEART: Regular rhythm S1, S2. No S3. No murmur or rub appreciated. ABDOMEN: Soft, nontender. Positive bowel sounds. No organomegaly. EXTREMITIES: No edema. Intact distal pulses. EKG revealed sinus mechanism with T-wave changes in lead inversion in lead V1 and V2. Otherwise, no acute changes. LAB DATA: Cholesterol 133, LDL of 58. Troponin of 2.1 and 1.1. NT proBNP of 2050. BUN and creatinine of 9 and 0.45, potassium 3.3, hemoglobin of 11.4. Chest x-ray shows no acute changes with evidence of hiatal hernia. IMPRESSION: 1. Acute respiratory distress related to mucus plug in the tracheostomy. 2. Elevation of troponin, probably related to transient hypoxemia, most likely presenting a type 2 myocardial infarction. I doubt that we are dealing with a primary ischemic event. 3. Laryngeal carcinoma with recurrence on chemotherapy. 4. History of hypertension. 5. Diabetes mellitus. RECOMMENDATIONS: From the cardiac standpoint, I will add to her regimen a beta lindsey as well as statin. I will obtain echocardiogram with Doppler. I will continue heparin for 24 hours. Depending on the results of her echocardiogram, and her progress, further recommendation will be made. I would favor conservative treatment because of her malignancy and her overall status, but if she has any changes, then I will proceed with cardiac catheterization. I have discussed those findings with the patient. She is in full understanding and agreement. Thank you for this consult. We will follow with you. MAXIMILIAN / DENISHAN: [id number] /
[2018-07-18 13:20] LABS: Troponin I 0.809 ng/mL (0.000-0.034)
[2018-07-18] MEDS: ACETYLCYSTEINE 800 MG/4 ML VIAL INHALATION SCH ×2 (13:25→21:30)
[2018-07-18] MEDS: ALBUTEROL NEBULIZED 2.5 MG/3 ML INHALATION PRN ×3 (13:25→21:30)
[2018-07-18] MEDS: ONDANSETRON 4 MG/2 ML VIAL IVP PRN (14:15)
--- NOTE | 2018-07-18 16:38 | ECHOF ---
Referral Reason:htn MEASUREMENTS -------- HEIGHT: 170.2 cm WEIGHT: 84.8 kg BP: 145/87 IVSd: 1.2 cm (0.6 - 1.1) LVIDd: 4.0 cm (3.9 - 5.3) LVPWd: 1.2 cm (0.6 - 1.1) IVSs: 1.2 cm LVIDs: 2.8 cm LVPWs: 1.4 cm LAESV Index (A-L): 29.21 ml/m Ao Diam: 3.6 cm (2.0 - 3.7) AV Cusp: 2.1 cm (1.5 - 2.6) LA Diam: 3.7 cm (2.7 - 3.8) MV EXCURSION: 18.547 mm (> 18.000) MV EF SLOPE: 124 mm/s (70 - 150) EPSS: 0.6 cm MV E Johnny: 0.57 m/s MV DecT: 213 ms MV A Johnny: 0.79 m/s MV E/A Ratio: 0.72 RAP: 5.00 mmHg RVSP: 27.49 mmHg FINDINGS -------- Sinus rhythm. This was a technically adequate study. The left ventricular size is normal. There is mild concentric left ventricular hypertrophy. Overa ll left ventricular systolic function is moderately impaired with, an EF between 35 - 40 %. Mid ant erior LV wall motion is hypokinetic. Mid anteroseptal LV wall motion is hypokinetic. Apical ant erior LV wall motion is akinetic. Apical lateral LV wall motion is akinetic. Apical inferior LV wall motion is akinetic. Apical septum LV wall motion is akinetic. The right ventricle is normal in size. The left atrial size is normal. The right atrial size is normal. The aortic valve is trileaflet, and appears structurally normal. No aortic stenosis or regurgitation. The mitral valve is normal. Mild mitral regurgitation is present. Mild tricuspid regurgitation present. There is no evidence of pulmonary hypertension. The right v entricular systolic pressure, as measured by Doppler, is 27.49mmHg. There is no pulmonic regurgitation present. The aortic root size is normal. There is no pericardial effusion. CONCLUSIONS -------- 1. Sinus rhythm. 2. This was a technically adequate study. 3. The left ventricular size is normal. 4. There is mild concentric left ventricular hypertrophy. 5. Overall left ventricular systolic function is moderately impaired with, an EF between 35 - 40 %. 6. Mid anterior LV wall motion is hypokinetic. 7. Mid anteroseptal LV wall motion is hypokinetic. 8. Apical anterior LV wall motion is akinetic. 9. Apical lateral LV wall motion is akinetic. 10. Apical inferior LV wall motion is akinetic. 11. Apical septum LV wall motion is akinetic. 12. The left atrial size is normal. 13. The aortic valve is trileaflet, and appears structurally normal. No aortic stenosis or regurgitat ion. 14. Mild mitral regurgitation is present. 15. Mild tricuspid regurgitation present. 16. There is no evidence of pulmonary hypertension. 17. There is no pulmonic regurgitation present. 18. The aortic root size is normal. 19. There is no pericardial effusion. [facility] DIRECTOR: Arleen Foote RDCS
--- NOTE | 2018-07-18 16:41 | P.CNPUL ---
History of Present Illness Consult date: 07/18/18 Requesting physician: Namrata Cueto Reason for consult: dyspnea, cough Chief complaint: Coughing, dyspnea, mucus plugging, tracheobronchitis History of present illness: This is a 53-year-old white female patient of esophageal cancer, tracheostomy placed 1 month ago at [facility], currently undergoing radiation treatments to the chest area, unsure of the exact location. Resent to the emergency department on 07/17/2018 evaluation of dyspnea, cough and mucus plugging. Patient's brother is present at home with the patient, he attempted to do endotracheal suctioning, patient started turning blue, an ambulance was called at that time. Reportedly patient had been out of her Mucomyst last couple weeks related to insurance company no longer the covering this medication. Patient denied any other symptoms, no fever, no chills, no vomiting , no abdominal pain, no diarrhea, no lightheadedness or dizziness. Denied any chest pain, neither any hemoptysis, denied any lightheadedness or dizziness. Past medical history is significant for diabetes mellitus type 2, GERD/reflux, hypertension, history of bleeding ulcer, depression, lifetime nonsmoker. Patient was reportedly in severe respiratory distress, her brother actually delivered delivered some rescue breaths through the tracheostomy. Chest x-ray was completed, and showed no evidence of heart failure or pulmonary consolidation. Patient has been afebrile, she is on 30% trach collar, her pulse ox is 100%, hemodynamically stable. Lab work did not show any leukocytosis, WBC is 7.9, hemoglobin is 11.4, renal profile was within normal limits, potassium was 3.0, which was replaced per protocol, CO2 is 20, subsequently improved on follow-up blood draws, magnesium was 1.3, was replaced per protocol, troponin was found to be elevated at 2.170, 1.130, and 0.809. ProBNP was 2050. Review of Systems All systems: negative Constitutional: Denies chills, Denies fever Eyes: denies blurred vision, denies pain Ears, nose, mouth and throat: Denies headache, Denies sore throat Cardiovascular: Denies chest pain, Denies shortness of breath Respiratory: Reports cough with sputum, Reports dyspnea, Denies cough Gastrointestinal: Denies abdominal pain, Denies diarrhea, Denies nausea, Denies vomiting Genitourinary: Denies dysuria, Denies hematuria Musculoskeletal: Denies myalgias Integumentary: Denies pruritus, Denies rash Neurological: Denies numbness, Denies weakness Psychiatric: Denies anxiety, Denies depression Endocrine: Denies fatigue, Denies weight change Past Medical History Past Medical History: Cancer, Diabetes Mellitus, GERD/Reflux, GI Bleed, Hypertension Additional Past Medical History / Comment(s): esophogeal cancer. hx bleeding ulcer, kidney stone History of Any Multi-Drug Resistant Organisms: None Reported Past Surgical History: Cholecystectomy, Tonsillectomy Additional Past Surgical History / Comment(s): surgery for esophageal cancer, rt eye surgery age 3, D&C, Past Anesthesia/Blood Transfusion Reactions: No Reported Reaction Past Psychological History: Depression Smoking Status: Never smoker Past Alcohol Use History: None Reported Past Drug Use History: None Reported - Past Family History Mother Family Medical History: No Reported History Father Family Medical History: No Reported History Medications and Allergies Home Medications Medication Instructions Recorded Confirmed Type Lisinopril [Prinivil] 20 mg PO DAILY 05/31/17 07/17/18 History Ranitidine HCl [Zantac] 150 mg PO BID 05/31/17 07/17/18 History Sertraline [Zoloft] 50 mg PO HS 05/31/17 07/17/18 History metFORMIN HCL [Glucophage] 500 mg PO BID 05/31/17 07/17/18 History Insulin Aspart [NovoLOG 2 unit SQ AC-[id number] PRN 01/18/18 07/17/18 History (formulary)] Allergies Allergy/AdvReac Type Severity Reaction Status Date / Time No Known Allergies Allergy Verified 07/17/18 21:10 Physical Exam Vitals: Vital Signs Temp Pulse Pulse Resp BP BP Pulse Ox 07/18/18 15:35 92 07/18/18 15:33 98.5 F 70 20 150/90 100 07/18/18 15:31 117 H 18 07/18/18 15:22 90 07/18/18 14:00 92 18 07/18/18 13:37 89 18 07/18/18 10:59 117 H 22 07/18/18 10:58 68 22 145/83 100 07/18/18 08:09 74 20 07/18/18 08:00 98.1 F 74 20 145/87 100 07/18/18 04:00 97.8 F 75 18 132/92 96 07/18/18 00:30 97.5 F L 68 18 142/81 99 07/17/18 23:30 97.8 F 68 20 131/75 100 07/17/18 23:00 71 18 130/78 99 07/17/18 22:30 70 22 146/94 99 07/17/18 22:00 104 H 18 128/84 100 07/17/18 21:30 82 20 142/94 98 07/17/18 21:02 97.6 F 96 20 175/101 98 Intake and Output 07/18/18 07/18/18 07/18/18 06:59 14:59 22:59 Intake Total 932.335 240.396 Output Total 400 Balance 932.335 -159.604 Intake: Intake, IV Titration 932.335 160.396 Amount Heparin Sod,Pork in 0.45% 132.335 160.396 NaCl 25,000 unit In 0.45 % NaCl 1 500ml.bag @ 10 UNITS/KG/HR 19.95 mls/hr IV .Q24H [facility] Rx#: [id number] Magnesium Sulfate-D5w Pmx 300 1 gm In Dextrose/Water 1 100ml.bag @ 100 mls/hr IVPB Q1H [facility] Rx#: [id number] Sodium Chloride 0.9% 500 500 ml 500 ml @ 1000 mls/hr IV .Q30M [facility] Rx#: [id number] Oral 80 Output: Urine 400 Other: Voiding Method Toilet Toilet # Voids 1 1 Weight 84.822 kg GENERAL EXAM: Alert, pleasant 53-year-old white female, comfortable in no apparent distress. HEAD: Normocephalic/atraumatic. EYES: Normal reaction of pupils, equal size. Conjunctiva pink, sclera white. NOSE: Clear with pink turbinates. THROAT: No erythema or exudates. NECK: No masses, no JVD, no thyroid enlargement, no adenopathy. Midline tracheostomy CHEST: No chest wall deformity. Symmetrical expansion. LUNGS: Equal air entry with no crackles, wheeze, rhonchi or dullness. CVS: Regular rate and rhythm, normal S1 and S2, no gallops, no murmurs, no rubs ABDOMEN: Soft, nontender. No hepatosplenomegaly, normal bowel sounds, no guarding or rigidity. EXTREMITIES: No clubbing, no edema, no cyanosis, 2+ pulses and upper and lower extremities. MUSCULOSKELETAL: Muscle strength and tone normal. SPINE: No scoliosis or deformity SKIN: No rashes CENTRAL NERVOUS SYSTEM: Alert and oriented -3. No focal deficits, tone is normal in all 4 extremities. PSYCHIATRIC: Alert and oriented -3. Appropriate affect. Intact judgment and insight. Results - Laboratory Findings CBC and BMP: 07/17/18 21:48 07/18/18 05:29 Abnormal lab findings: Abnormal Labs 07/17/18 07/17/18 07/17/18 21:24 21:48 21:48 APTT Potassium 3.0 L Carbon Dioxide 20 L Creatinine Glucose 320 H POC Glucose (mg/dL) 296 H Calcium Magnesium 1.3 L CK-MB (CK-2) Troponin I 2.170 H* 07/18/18 07/18/18 07/18/18 01:20 05:29 05:29 APTT Potassium 3.3 L Carbon Dioxide Creatinine 0.45 L Glucose 127 H POC Glucose (mg/dL) 259 H Calcium 7.8 L Magnesium CK-MB (CK-2) 5.2 H Troponin I 1.130 H* 07/18/18 07/18/18 07/18/18 05:29 05:57 11:26 APTT 35.5 H Potassium Carbon Dioxide Creatinine Glucose POC Glucose (mg/dL) 129 H Calcium Magnesium CK-MB (CK-2) 3.5 H Troponin I 0.809 H* 07/18/18 07/18/18 11:26 11:46 APTT 33.9 H Potassium Carbon Dioxide Creatinine Glucose POC Glucose (mg/dL) 137 H Calcium Magnesium CK-MB (CK-2) Troponin I - Diagnostic Findings Chest x-ray: report reviewed, image reviewed Assessment and Plan Plan: Assessment: #1. Acute hypoxemic respiratory failure related to mucus plugging and tracheobronchitis. Chest x-ray did not show any clear evidence of pneumonia or congestive heart failure #2. Elevated troponins, EKG was negative for any signs of acute ischemia #3. History of esophageal carcinoma, patient has a chronic tracheostomy in place, currently receiving radiation therapy to the chest, and the details for the tracheostomy placement are unclear at this time, we'll request records from [facility] #4. Diabetes mellitus type 2 #5. Hypertension Plan: Current medical treatment, continue Mucinex, nebulized bronchodilators, Levaquin and Mucomyst. Patient stated that her tracheostomy was placed only a month ago, no indication to change the trach right now. We'll obtain records from [facility] regards to patient's history of esophageal cancer, and current treatment. Hemodynamically patient is stable, afebrile, chest x-ray is negative for any evidence of pneumonia or heart failure, denies any chest pain, cardiology is following for elevated troponins. We'll continue to follow I performed a history & physical examination of the patient and discussed their management with my nurse practitioner, Sophie North. I reviewed the nurse practitioner's note and agree with the documented findings and plan of care. Lung sounds are diminished breath sounds. The findings and the impression was discussed with the patient. I attest to the documentation by the nurse practitioner. Time with Patient: Greater than 30
[2018-07-18 16:50] LABS: Glucose,Whole Blood 149 mg/dL (75-99)
[2018-07-18] MEDS ORDERED: ALPRAZolam 0.5 MG TAB PO PRN (16:58)
[2018-07-18] MEDS: SERTRALINE 50 MG TAB PO SCH (20:39)
[2018-07-18] MEDS ORDERED: HYDROGEN PEROXIDE BOTTLE TOPICAL ONE (21:41)
[2018-07-18 21:43] LABS: Glucose,Whole Blood 165 mg/dL (75-99)
[2018-07-18] MEDS: HEPARIN SOD,PORK IN 0.45% NACL 25,000 UNIT in 0.45% NACL 1 500ML.BAG IV SCH (21:54)
[2018-07-19 06:09] LABS: Glucose,Whole Blood 122 mg/dL (75-99)
[2018-07-19] MEDS: INSULIN ASPART 100 UNIT/ML 1 ML 10 ML VIAL SQ SCH ×4 (06:46→21:04)
[2018-07-19] MEDS: ONDANSETRON 4 MG/2 ML VIAL IVP PRN ×3 (06:47→20:15)
[2018-07-19] MEDS: ACETYLCYSTEINE 800 MG/4 ML VIAL INHALATION SCH ×3 (07:39→19:38)
[2018-07-19 07:41] LABS: Anion Gap 6 mmol/L; Blood Urea Nitrogen 7 mg/dL (7-17); Calcium 8.1 mg/dL (8.4-10.2); Carbon Dioxide 30 mmol/L (22-30); Chloride 99 mmol/L (98-107); Glucose 121 mg/dL (74-99); Magnesium 1.5 mg/dL (1.6-2.3); Potassium 3.1 mmol/L (3.5-5.1); Sodium 135 mmol/L (137-145)
[2018-07-19] MEDS ORDERED: SODIUM CHLORIDE 0.9% 1,000 ML in EMPTY BAG 1 BAG IV ONE (08:59)
[2018-07-19] MEDS ORDERED: ATORVASTATIN 80 MG TAB PO STA (08:59)
[2018-07-19] MEDS ORDERED: ASPIRIN 325 MG TAB PO STA (08:59)
[2018-07-19] MEDS ORDERED: NITROGLYCERIN SL TABS 0.4 MG TAB SUBLINGUAL PRN (08:59)
[2018-07-19] MEDS ORDERED: ALPRAZolam 0.25 MG TAB PO PRN (08:59)
[2018-07-19] MEDS ORDERED: ALPRAZolam 0.5 MG TAB PO PRN (08:59)
[2018-07-19] MEDS: guaiFENesin 600 MG TABLET.ER PO SCH ×2 (10:38→20:16)
[2018-07-19] MEDS: LEVOFLOXACIN 500 MG TAB PO SCH (10:38)
[2018-07-19] MEDS: LISINOPRIL 20 MG TAB PO SCH ×2 (10:38→20:16)
[2018-07-19] MEDS: FAMOTIDINE 20 MG TAB PO SCH ×2 (10:38→20:16)
[2018-07-19] MEDS: METOPROLOL TARTRATE 25 MG TAB PO SCH ×2 (10:39→20:15)
[2018-07-19] MEDS: ASPIRIN 81 MG PO SCH (10:39)
[2018-07-19 11:33] LABS: Glucose,Whole Blood 151 mg/dL (75-99)
[2018-07-19] MEDS: ATORVASTATIN 40 MG TAB PO SCH (11:37)
--- NOTE | 2018-07-19 13:55 | P.PN ---
Subjective Progress Note Date: 07/19/18 Principal diagnosis: Acute hypoxemic respiratory failure secondary to mucous plugging and tracheobronchitis. No clear evidence of pneumonia. This is a 53-year-old white female patient of esophageal cancer, tracheostomy placed 1 month ago at [facility], currently undergoing radiation treatments to the chest area, unsure of the exact location. Resent to the emergency department on 07/17/2018 evaluation of dyspnea, cough and mucus plugging. Patient's brother is present at home with the patient, he attempted to do endotracheal suctioning, patient started turning blue, an ambulance was called at that time. Reportedly patient had been out of her Mucomyst last couple weeks related to insurance company no longer the covering this medication. Patient denied any other symptoms, no fever, no chills, no vomiting , no abdominal pain, no diarrhea, no lightheadedness or dizziness. Denied any chest pain, neither any hemoptysis, denied any lightheadedness or dizziness. Past medical history is significant for diabetes mellitus type 2, GERD/reflux, hypertension, history of bleeding ulcer, depression, lifetime nonsmoker. Patient was reportedly in severe respiratory distress, her brother actually delivered delivered some rescue breaths through the tracheostomy. Chest x-ray was completed, and showed no evidence of heart failure or pulmonary consolidation. Patient has been afebrile, she is on 30% trach collar, her pulse ox is 100%, hemodynamically stable. Lab work did not show any leukocytosis, WBC is 7.9, hemoglobin is 11.4, renal profile was within normal limits, potassium was 3.0, which was replaced per protocol, CO2 is 20, subsequently improved on follow-up blood draws, magnesium was 1.3, was replaced per protocol, troponin was found to be elevated at 2.170, 1.130, and 0.809. ProBNP was 2050. The patient is seen today 07/19/2018 in follow-up on the selective care unit. She is resting quite comfortably bed. She is awake and alert in no acute distress. She does complain of some nausea today. She denies any shortness of breath. Her cough is dry. She is maintaining good O2 saturations up to 100% on 30% trach collar. She's been afebrile. Hemodynamically stable. Sodium 135 , potassium 3.1, creatinine 0.51. She remains on a heparin drip for positive troponins suspected secondary to transient hypoxemia however her left ventricular systolic function is moderately impaired with ejection fraction 35- 40%. She may be considered for cardiac catheterization. Objective - Vital Signs Vital signs: Vital Signs Temp 98.6 F 07/19/18 08:00 Pulse 69 07/19/18 08:00 Resp 20 07/19/18 08:00 BP 147/75 07/19/18 08:00 Pulse Ox 100 07/19/18 08:00 Intake & Output 07/18/18 07/19/18 07/19/18 18:59 06:59 18:59 Intake Total 240.396 207.269 Output Total 400 Balance -159.604 207.269 Weight 84 kg Intake: Intake, IV Titration 160.396 207.269 Amount Heparin Sod,Pork in 0.45% 160.396 207.269 NaCl 25,000 unit In 0.45 % NaCl 1 500ml.bag @ 10 UNITS/KG/HR 19.95 mls/hr IV .Q24H [facility] Rx#: [id number] Oral 80 Output: Urine 400 Other: Voiding Method Toilet Toilet Toilet # Voids 1 2 1 # Bowel Movements 0 - Exam GENERAL EXAM: Alert, pleasant 53-year-old white female, comfortable in no apparent distress. HEAD: Normocephalic/atraumatic. EYES: Normal reaction of pupils, equal size. Conjunctiva pink, sclera white. NOSE: Clear with pink turbinates. THROAT: No erythema or exudates. NECK: No masses, no JVD, no thyroid enlargement, no adenopathy. Midline tracheostomy CHEST: No chest wall deformity. Symmetrical expansion. LUNGS: Equal air entry with no crackles, wheeze, rhonchi or dullness. CVS: Regular rate and rhythm, normal S1 and S2, no gallops, no murmurs, no rubs ABDOMEN: Soft, nontender. No hepatosplenomegaly, normal bowel sounds, no guarding or rigidity. EXTREMITIES: No clubbing, no edema, no cyanosis, 2+ pulses and upper and lower extremities. MUSCULOSKELETAL: Muscle strength and tone normal. SPINE: No scoliosis or deformity SKIN: No rashes CENTRAL NERVOUS SYSTEM: Alert and oriented -3. No focal deficits, tone is normal in all 4 extremities. PSYCHIATRIC: Alert and oriented -3. Appropriate affect. Intact judgment and insight. - Labs CBC & Chem 7: 07/17/18 21:48 07/19/18 06:19 Labs: Abnormal Lab Results - Last 24 Hours (Table) 07/18/18 07/18/18 07/18/18 Range/Units 16:48 18:21 21:41 APTT 52.1 H (22.0-30.0) sec Sodium (137-145) mmol/L Potassium (3.5-5.1) mmol/L Creatinine (0.52-1.04) mg/dL Glucose (74-99) mg/dL POC Glucose (mg/dL) 149 H 165 H (75-99) mg/dL Calcium (8.4-10.2) mg/dL Magnesium (1.6-2.3) mg/dL 07/19/18 07/19/18 07/19/18 Range/Units 06:07 06:19 06:51 APTT 55.3 H (22.0-30.0) sec Sodium 135 L (137-145) mmol/L Potassium 3.1 L (3.5-5.1) mmol/L Creatinine 0.51 L (0.52-1.04) mg/dL Glucose 121 H (74-99) mg/dL POC Glucose (mg/dL) 122 H (75-99) mg/dL Calcium 8.1 L (8.4-10.2) mg/dL Magnesium 1.5 L (1.6-2.3) mg/dL 07/19/18 Range/Units 11:29 APTT (22.0-30.0) sec Sodium (137-145) mmol/L Potassium (3.5-5.1) mmol/L Creatinine (0.52-1.04) mg/dL Glucose (74-99) mg/dL POC Glucose (mg/dL) 151 H (75-99) mg/dL Calcium (8.4-10.2) mg/dL Magnesium (1.6-2.3) mg/dL Assessment and Plan Assessment: Assessment: #1. Acute hypoxemic respiratory failure related to mucus plugging and tracheobronchitis. Chest x-ray did not show any clear evidence of pneumonia or congestive heart failure #2. Elevated troponins, EKG was negative for any signs of acute ischemia #3. History of esophageal carcinoma, patient has a chronic tracheostomy in place, currently receiving radiation therapy to the chest, and the details for the tracheostomy placement are unclear at this time, we'll request records from [facility] #4. Diabetes mellitus type 2 #5. Hypertension Plan: The patient was seen and evaluated by Dr. Webb. She is currently stable from the pulmonary standpoint. Troponins were positive and the patient has impaired left ventricular systolic function with ejection fraction 25-30%. She may be considered for cardiac catheterization. Continues on a heparin drip for now. We'll continue with bronchodilators and empiric antibiotics. We'll continue to follow make further recommendations based on her clinical status. I, the cosigning physician, performed a history & physical examination of the patient. Lungs sounds with few scattered rhonchi. Maintaining good O2 saturations in the 90s on 30% trach collar. I discussed the assessment and plan of care with my nurse practitioner, Angela Brian. I attest to the above note as dictated by her.
[2018-07-19] MEDS ORDERED: POTASSIUM CHLORIDE ER 20 MEQ TAB.ER PO STA (14:32)
[2018-07-19] MEDS ORDERED: VERAPAMIL 2.5 MG/ML 2 ML AMP ONE (14:43)
[2018-07-19] MEDS ORDERED: fentaNYL (PF) 50 MCG/ML 2 ML AMP ONE (14:43)
[2018-07-19] MEDS ORDERED: LIDOCAINE 1% INJ 10MG/ML (20 ML MDV) ONE (14:43)
--- NOTE | 2018-07-19 14:43 | P.PN ---
Subjective Progress Note Date: 07/19/18 Principal diagnosis: Troponin elevation Patient was seen and examined. No acute events overnight. Patient reports breathing back to baseline. She denies any cough at this time. Brother is at bedside asking questions regarding the cath. Plans for cath today hopefully. Objective - Vital Signs Vital signs: Vital Signs Temp 98.6 F 07/19/18 08:00 Pulse 69 07/19/18 08:00 Resp 20 07/19/18 08:00 BP 147/75 07/19/18 08:00 Pulse Ox 100 07/19/18 08:00 Intake & Output 07/18/18 07/19/18 07/19/18 18:59 06:59 18:59 Intake Total 240.396 207.269 Output Total 400 Balance -159.604 207.269 Weight 84 kg Intake: Intake, IV Titration 160.396 207.269 Amount Heparin Sod,Pork in 0.45% 160.396 207.269 NaCl 25,000 unit In 0.45 % NaCl 1 500ml.bag @ 10 UNITS/KG/HR 19.95 mls/hr IV .Q24H [facility] Rx#: [id number] Oral 80 Output: Urine 400 Other: Voiding Method Toilet Toilet Toilet # Voids 1 2 1 # Bowel Movements 0 - Exam General: [non toxic], [no distress], [appears at stated age] Derm: [warm], [dry] Head: [atraumatic], [normocephalic], [symmetric] Eyes: [EOMI], [no lid lag], [anicteric sclera] Mouth: [no lip lesion], [mucus membranes moist], [tracheostomy site clean] Cardiovascular: [S1S2 reg], [no murmur], [positive DP bilateral], Lungs: [Decreased breath sounds bilateral], [no rhonchi, no rales] , [no accessory muscle use] Abdominal: [soft], [ nontender to palpation], [no guarding], [no appreciable organomegaly] Ext: [no gross muscle atrophy], [no edema], [no contractures] Neuro: [no focal neuro deficits] Psych: [Alert], [oriented], [appropriate affect] - Labs CBC & Chem 7: 07/17/18 21:48 07/19/18 06:19 Labs: Abnormal Lab Results - Last 24 Hours (Table) 07/18/18 07/18/18 07/18/18 Range/Units 16:48 18:21 21:41 APTT 52.1 H (22.0-30.0) sec Sodium (137-145) mmol/L Potassium (3.5-5.1) mmol/L Creatinine (0.52-1.04) mg/dL Glucose (74-99) mg/dL POC Glucose (mg/dL) 149 H 165 H (75-99) mg/dL Calcium (8.4-10.2) mg/dL Magnesium (1.6-2.3) mg/dL 07/19/18 07/19/18 07/19/18 Range/Units 06:07 06:19 06:51 APTT 55.3 H (22.0-30.0) sec Sodium 135 L (137-145) mmol/L Potassium 3.1 L (3.5-5.1) mmol/L Creatinine 0.51 L (0.52-1.04) mg/dL Glucose 121 H (74-99) mg/dL POC Glucose (mg/dL) 122 H (75-99) mg/dL Calcium 8.1 L (8.4-10.2) mg/dL Magnesium 1.5 L (1.6-2.3) mg/dL 07/19/18 Range/Units 11:29 APTT (22.0-30.0) sec Sodium (137-145) mmol/L Potassium (3.5-5.1) mmol/L Creatinine (0.52-1.04) mg/dL Glucose (74-99) mg/dL POC Glucose (mg/dL) 151 H (75-99) mg/dL Calcium (8.4-10.2) mg/dL Magnesium (1.6-2.3) mg/dL Assessment and Plan Assessment: Assessment and Plan 1. NSTEMI: Troponin 2.17, 1.130. CXR negative. Echo shows EF 35-40% with hypokinetic motions. Cardiology consulted - cardiac cath as per patient. Continue Heparin drip. Continue ASA 81 mg PO QD, Lipitor 80 mg PO QHS. Lipid panel shows LDL 58. Heart healthy diet. FU Cardiology 2. Purulent tracheobronchitis: Patient is afebrile with no leukocytosis. CXR negative for pneumonia. Continue Mucormyst 200 mg INH TID, Albuterol neb QID PRN for SOB. Continue Mucinex 1200 mg PO BID. Levofloxacin 500 mg PO QD. O2 per trach collar to maintain O2 sat > 92%. 3. Diabetes Mellitus: POC glucose 151. ISS. Accuchecks. Hypoglycemic precautions. Low carb diet. 4. Hypertension: BP 145/75. Continue Lisinopril 20 mg PO QD, Metoprolol 25 mg PO BID. Monitor vitals, adjust medications as necessary. 5. Laryngeal CA: Will follow Dr. Mckeon and Dr. Dang at [facility] for Rx. 6. Hypokalemia: K 3.1. Replace. 7. DVT/GI Prophylaxis: Pepcid 20 mg PO BID. Heparin drip. Respiratory status greatly improved. Brother reports running out of Mucor mist , patient being afraid of a humidifier. Patient had respiratory distress and apparently stopped breathing due to mucous plug. Brother is able to blow in her tracheostomy site and do chest compressions. Her elevated Troponins are likely due to chest compressions but will need cardiac cath given her cardiac history and results of echo.
[2018-07-19] MEDS ORDERED: IV FLUID CONTINUATION 1,000 ML IV ONE (14:50)
[2018-07-19] MEDS ORDERED: fentaNYL (PF) 50 MCG/ML 2 ML AMP IV ONE (14:58)
[2018-07-19] MEDS ORDERED: LIDOCAINE 1% INJ 10MG/ML (20 ML MDV) SQ ONE (14:58)
[2018-07-19] MEDS ORDERED: VERAPAMIL SYRINGE (5 MG/10 ML) INTRAARTER ONE (15:01)
[2018-07-19] MEDS ORDERED: HEPARIN SODIUM 1,000 UN/ML (10ML VL) ONE (15:09)
[2018-07-19] MEDS ORDERED: HEPARIN SODIUM 1,000 UN/ML (10ML VL) IV ONE (15:11)
[2018-07-19] MEDS ORDERED: IOPAMIDOL-370 125ML BTL INJ ONE (15:14)
[2018-07-19] MEDS ORDERED: RX INFO: IV CONTRAST WAS GIVEN 1 EACH MISC MISCELLANE PRN (15:22)
[2018-07-19] MEDS: MAGNESIUM SULFATE-D5W PMX 1 GM in DEXTROSE/WATER 1 100ML.BAG IVPB SCH ×2 (15:52→16:59)
[2018-07-19 16:12] LABS: Glucose,Whole Blood 147 mg/dL (75-99)
[2018-07-19] MEDS: ALBUTEROL NEBULIZED 2.5 MG/3 ML INHALATION PRN (19:38)
[2018-07-19] MEDS: SERTRALINE 50 MG TAB PO SCH (20:16)
[2018-07-19 21:01] LABS: Glucose,Whole Blood 169 mg/dL (75-99)
--- NOTE | 2018-07-19 22:59 | CC ---
CARDIAC CATHETERIZATION REPORT Mrs. Hurley is a 53-year-old female known history of diabetes and hypertension, history of laryngeal CA with recent recurrence was underwent chemotherapy. She has a tracheostomy, who presented with symptoms of dyspnea and dyspnea, had a mucus plug. On presentation, her troponin was 2 and there was no significant EKG changes. Subsequently, an echocardiogram revealed an apical, anteroapical anteroseptal severe hypokinesis. In view of that, in view of the possibility of takotsubo syndrome, recommendation made regarding cardiac catheterization. The procedure as well as risks and complications were discussed with the patient who is in full understanding and agreement. PROCEDURE: Patient was brought to [facility] in the fasting semisedated state after receiving fentanyl and Benadryl and achieving moderate conscious sedated state, using Xylocaine anesthesia and Seldinger technique, a 6-[place] sheath was introduced in the right radial artery. Selective right and left coronary angiography was performed using 5- [place] Citizen 3 and half bend right and left Chas catheter multiple views of the coronary artery including hemiaxial views were obtained. Following that 5-[place] Citizen tight pigtail catheter was introduced in the left ventricle and a 30 degree FINCH view of the left ventricle was obtained. Following the catheter and sheath were removed. Hemostasis was obtained with deployment of a TR band. There was no immediate complication. Patient was returned to her room in stable condition. Of note, the patient received 4500 units of intravenous heparin, intra-arterial verapamil. FINDINGS: LEFT MAIN: This is a large-sized vessel bifurcating left circumflex, left anterior descending coronary artery. The left main coronary artery has no evidence of high- grade stenosis. LEFT ANTERIOR DESCENDING ARTERY: This is a large-sized vessel reaching toward the apex with a wraparound apex segment giving rise to 2 diagonal branch of moderate caliber. The left anterior descending artery as well as branches have no evidence of high-grade stenosis. LEFT CIRCUMFLEX: This is a large dominant vessel bifurcating distally PDA and posterolateral segment and branches. The left circumflex as well as branches have no evidence of obstructive disease. RIGHT CORONARY ARTERY: This is a small nondominant vessel that has no evidence of high- grade stenosis. LEFT VENTRICULOGRAM: Left ventriculogram was performed in 30 degree FINCH view and revealed an anteroapical hypokinesis. The ejection fraction is 45%. There was no significant mitral regurgitation. HEMODYNAMICS: There was no gradient across the aortic valve. The left ventricle end-diastolic pressure was 20 mmHg. CONCLUSION: 1. Normal coronary arteries. 2. Abnormal left ventricular systolic function with moderately impaired left ventricular systolic function. Segmental and wall motion abnormality. RECOMMENDATION: Those findings are consistent was at takotsubo syndrome. I have recommended continue medical therapy with aggressive risk modifications being initiated. Those findings and recommendation were discussed with the patient and her family who are in full understanding and agreement. Duration of procedure is 21 minutes. MMODL / IJN: [id number] /
[2018-07-20 05:57] LABS: Glucose,Whole Blood 118 mg/dL (75-99)
[2018-07-20] MEDS: INSULIN ASPART 100 UNIT/ML 1 ML 10 ML VIAL SQ SCH ×2 (06:07→12:37)
[2018-07-20 06:50] LABS: Basophils % (A) 0 %; Eosinophils # (A) 0.1 k/uL (0-0.7); Eosinophils % (A) 3 %; HCT 33.3 % (34.0-46.0); HGB 10.7 gm/dL (11.4-16.0); Lymphocytes # (A) 0.8 k/uL (1.0-4.8); Lymphocytes % (A) 20 %; MCH 28.6 pg (25.0-35.0); MCV 89.2 fL (80.0-100.0); Mean Platelet Volume 7.3; Monocytes # (A) 0.1 k/uL (0-1.0); Monocytes % (A) 4 %; Neutrophils # (A) 2.8 k/uL (1.3-7.7); Neutrophils % (A) 71 %; Platelet Count 243 k/uL (150-450); RBC 3.73 m/uL (3.80-5.40); RDW 15.1 % (11.5-15.5); WBC 3.9 k/uL (3.8-10.6)
[2018-07-20] MEDS: ACETYLCYSTEINE 800 MG/4 ML VIAL INHALATION SCH (07:09)
[2018-07-20] MEDS: ALBUTEROL NEBULIZED 2.5 MG/3 ML INHALATION PRN (07:09)
[2018-07-20 07:14] LABS: Anion Gap 7 mmol/L; Blood Urea Nitrogen 6 mg/dL (7-17); Calcium 8.4 mg/dL (8.4-10.2); Carbon Dioxide 27 mmol/L (22-30); Chloride 101 mmol/L (98-107); Glucose 109 mg/dL (74-99); Potassium 3.6 mmol/L (3.5-5.1); Sodium 135 mmol/L (137-145)
[2018-07-20] MEDS ORDERED: ATORVASTATIN 40 MG TAB PO SCH (09:00)
[2018-07-20] MEDS: ASPIRIN 81 MG PO SCH (09:16)
[2018-07-20] MEDS: LISINOPRIL 20 MG TAB PO SCH (09:16)
[2018-07-20] MEDS: METOPROLOL TARTRATE 25 MG TAB PO SCH (09:16)
[2018-07-20] MEDS: guaiFENesin 600 MG TABLET.ER PO SCH (09:16)
[2018-07-20] MEDS: LEVOFLOXACIN 500 MG TAB PO SCH (09:16)
[2018-07-20] MEDS: FAMOTIDINE 20 MG TAB PO SCH (09:18)
--- NOTE | 2018-07-20 09:39 | P.DS ---
Providers Date of admission: 07/17/18 23:26 Expected date of discharge: 07/20/18 Attending physician: Honorio Vega MD Consults: 07/17/18 23:25 Consult Physician Stat Consulting Provider: Geremias Henry Consult Reason/Comments: NSTEMI. Do you want consulting provider notified?: Already Contacted 07/18/18 00:49 Consult Physician Routine Consulting Provider: Edward Barbosa Consult Reason/Comments: tracheostomy eval possible malfunction, dyspnea Do you want consulting provider notified?: Yes, Notify in am Primary care physician: Physician Nonstaff - Discharge Diagnosis(es) (1) HFrEF (heart failure with reduced ejection fraction) Current Visit: Yes Status: Acute (2) Tracheobronchitis Current Visit: Yes Status: Acute (3) Elevated troponin I level Current Visit: Yes Status: Acute (4) History of laryngeal cancer Current Visit: Yes Status: Acute (5) Type 2 diabetes mellitus with hyperglycemia Current Visit: Yes Status: Acute (6) Hypertension Current Visit: No Status: Acute Hospital Course: 53-year-old woman with history of tracheostomy since June 02 due to laryngeal cancer, who presents to have evaluation for coughing and dyspnea. The patient had been seen here earlier in the day for similar symptoms. She had reportedly felt she had a mucous plug in her tracheostomy at that time. The patient had been seen here, was observed for a period and went home. Tonight the symptoms are reportedly recurred and she comes back by ambulance. Patient's brother reported that the patient became acutely short of breath and became quite dean. Patient denies any pain at all, including no chest pain. She is complaining mainly of a cough with some clearish sputum, and a feeling that this is occluding her tracheostomy. The patient has been out of Mucomyst for the last 2 days as well. Patient received a comprehensive workup in the ER was noted to have elevated serum troponin at 2.17 elevated NT proBNP at 2170 with serum potassium at 3.0 and serum bicarbonate 20 with blood sugar of 320. EKG is negative for any suggestion of any acute ischemia. Her shortness of breath is likely thought to be secondary to mucous plug and noncompliance with her medication Mucomyst. Patient was afebrile with no leukocytosis. Chest x-ray was negative for pneumonia. She was started on Mucomyst and albuterol nebulize treatments as needed. She was also given levofloxacin by mouth for a total of 7 days for purulent tracheobronchitis. Patient was noted to have a troponin elevation of 2.17 which trended down to 1.130. Elevated troponin was likely thought to be secondary to chest compressions at the patient received via her brother during the resuscitative efforts at home when she stopped breathing. Echocardiogram was obtained which showed an EF of 35-40% with hypokinetic wall motions. Cardiology was consulted at this time and recommended cardiac catheterization. She was initially placed on a heparin drip which was discontinued after the cardiac cath. Cardiac cath showed an EF of 45% with clean coronaries. She was continued on metoprolol and lisinopril. Patient had no chest pain through her hospital admission. Otherwise her home medications were resumed for her diabetes mellitus, hypertension. Patient seen and examined on 07/20/2018. Patient with no complaints at this time. Patient denies any shortness of breath, chest pain or palpitations. Patient is looking forward to going home. General: [non toxic], [no distress], [appears at stated age] Derm: [warm], [dry] Head: [atraumatic], [normocephalic], [symmetric] Eyes: [EOMI], [no lid lag], [anicteric sclera] Mouth: [no lip lesion], [mucus membranes moist], [tracheostomy site clean] Cardiovascular: [S1S2 reg], [no murmur], [positive DP bilateral], Lungs: [Decreased breath sounds bilateral], [no rhonchi, no rales] , [no accessory muscle use] Abdominal: [soft], [ nontender to palpation], [no guarding], [no appreciable organomegaly] Ext: [no gross muscle atrophy], [no edema], [no contractures] Neuro: [no focal neuro deficits] Psych: [Alert], [oriented], [appropriate affect] Assessment and Plan 1. Troponin elevation with new onset HFrEF: Troponin 2.17, 1.130. CXR negative. Echo shows EF 35-40% with hypokinetic motions. Cardiology consulted - cardiac cath shows EF 45% with clean coronaries. Continue ASA 81 mg PO QD (ASCVD risk of 5.2%), will DC Lipitor. Continue Metoprolol 25 mg PO BID and Lisinopril 20 mg PO BID. Lipid panel shows LDL 58. Heart healthy diet. FU Cardiology 2. Purulent tracheobronchitis: Patient is afebrile with no leukocytosis. CXR negative for pneumonia. Continue Mucormyst 200 mg INH TID, Albuterol neb QID PRN for SOB. Continue Mucinex 1200 mg PO BID. Levofloxacin 500 mg PO QD. O2 per trach collar to maintain O2 sat > 92%. 3. Diabetes Mellitus: POC glucose 109. ISS. Accuchecks. Hypoglycemic precautions. Low carb diet. 4. Hypertension: BP 164/88. Continue Lisinopril 20 mg PO QD, Metoprolol 25 mg PO BID. Monitor vitals, adjust medications as necessary. 5. Laryngeal CA: Will follow Dr. Mckeon and Dr. Dang at [facility] for Rx. 6. DVT/GI Prophylaxis: Pepcid 20 mg PO BID. Heparin drip. Resolved; Hypokalemia. She was advised follow-up with her primary care provider within 1-2 days of discharge. She was advised follow-up with the bonderizer operator Dr. Henry within 1 week of discharge. Patient was advised follow-up with her oncologist and radiation oncologist for treatment of laryngeal cancer at [facility]. Pertinent Studies: Cardiac catheterization. Chest x-ray Echocardiogram Procedures: Cardiac catheterization Patient Condition at Discharge: Stable Plan - Discharge Summary Discharge Rx Participant: No New Discharge Prescriptions: New Acetylcysteine [Mucomyst] 200 mg INHALATION RT-TID #90 vial Albuterol Nebulized [Ventolin Nebulized] 2.5 mg INHALATION RT-QID PRN #90 nebu PRN Reason: Shortness Of Breath Or Wheezing Aspirin 81 mg PO DAILY #30 chew guaiFENesin [Mucinex] 1,200 mg PO Q12HR #30 tablet.er Levofloxacin [Levaquin] 500 mg PO Q24HR #4 tab Lisinopril [Zestril] 20 mg PO BID #60 tab Metoprolol Tartrate [Lopressor] 25 mg PO BID #60 tab Continue metFORMIN HCL [Glucophage] 500 mg PO BID Ranitidine HCl [Zantac] 150 mg PO BID Sertraline [Zoloft] 50 mg PO HS Insulin Aspart [NovoLOG (formulary)] 2 unit SQ AC-BRKFST PRN PRN Reason: Blood Sugar - High Discontinued Lisinopril [Prinivil] 20 mg PO DAILY Discharge Medication List Ranitidine HCl [Zantac] 150 mg PO BID 05/31/17 [History] Sertraline [Zoloft] 50 mg PO HS 05/31/17 [History] metFORMIN HCL [Glucophage] 500 mg PO BID 05/31/17 [History] Insulin Aspart [NovoLOG (formulary)] 2 unit SQ AC-BRKFST PRN 01/18/18 [History] Acetylcysteine [Mucomyst] 200 mg INHALATION RT-TID #90 vial 07/20/18 [Rx] Albuterol Nebulized [Ventolin Nebulized] 2.5 mg INHALATION RT-QID PRN #90 nebu 07/20/18 [Rx] Aspirin 81 mg PO DAILY #30 chew 07/20/18 [Rx] Levofloxacin [Levaquin] 500 mg PO Q24HR #4 tab 07/20/18 [Rx] Lisinopril [Zestril] 20 mg PO BID #60 tab 07/20/18 [Rx] Metoprolol Tartrate [Lopressor] 25 mg PO BID #60 tab 07/20/18 [Rx] guaiFENesin [Mucinex] 1,200 mg PO Q12HR #30 tablet.er 07/20/18 [Rx] Follow up Appointment(s)/Referral(s): [facility], [NON-STAFF] - Nonstaff,Physician [Primary Care Provider] - 1-2 days Geremias Henry MD [STAFF PHYSICIAN] - 1 Week Activity/Diet/Wound Care/Special Instructions: Diet: Diabetic, HEART healthy Please follow up with your primary care provider within 1-2 days of discharge. Please follow up with your [employer] Dr. Henry within 1 week of discharge. Please follow up with your Oncologist and Radiation Oncologist for continuation of your Oncological treatment. Please take all medications as advised. Discharge Disposition: HOME SELF-CARE
[2018-07-20] MEDS ORDERED: SPIRONOLACTONE 25 MG TAB PO SCH (10:45)
[2018-07-20 11:38] LABS: Glucose,Whole Blood 122 mg/dL (75-99)
[2018-07-20 11:50] VITALS: BP 137/80; PULSE 59; RESP 14; TEMP 98.4
--- NOTE | 2018-07-20 12:12 | PN ---
PROGRESS NOTE Mrs. Hurley is a 53-year-old female with known history of laryngeal CA, who presented with a non ST-segment elevation myocardial infarction, underwent cardiac catheterization, was found to have evidence of takotsubo. She is doing well this morning. She denies any chest pain. No dizziness. No palpitation. No nausea. She continues to be on aspirin 81 mg daily, Lipitor 40 mg daily, lisinopril 20 mg twice a day, metoprolol tartrate 25 mg twice a day. PHYSICAL EXAMINATION: Blood pressure running in the 130s to 160s with a heart rate in the 60s. LUNGS: Clear. HEART: Regular rate and rhythm, S1, S2. No S3. No rub. ABDOMEN: Soft, nontender. Extremities: No edema. Right radial pulse intact. LAB DATA: Revealed BUN and creatinine 6 and 0.52. IMPRESSION: 1. Non ST-segment elevation myocardial infarction with takotsubo syndrome. 2. Hypertension. 3. Laryngeal carcinoma receiving chemotherapy with recurrence. RECOMMENDATIONS: I will add to her regimen Aldactone 25 mg daily. Continue on the rest of her medical regimen. She should be able to be discharged home today and followed as an outpatient. MMODL / IJN: [id number] /
--- NOTE | 2018-07-20 17:41 | P.PN ---
Subjective Progress Note Date: 07/20/18 Principal diagnosis: acute hypoxic respiratory failure, multifactorial patient was reevaluated today on , patient is doing well, cardiac catheterization was done yesterday, and she had normal coronaries. The patient was found to have LV dysfunction secondary to takustubo syndrome. Patient is feeling much better today, breathing a lot easier, she has less difficulty with tracheal secretions, no cough no wheezing or shortness of breath. Patient is being considered for discharge today, and she will be discharged home on oral antibiotics, bronchodilators, and mucolytic agents./ Mucomyst Objective - Vital Signs Vital signs: Vital Signs Temp 98.4 F 07/20/18 11:48 Pulse 59 L 07/20/18 11:48 Resp 14 07/20/18 11:50 BP 137/80 07/20/18 11:48 Pulse Ox 99 07/20/18 11:48 Intake & Output 07/19/18 07/20/18 07/20/18 18:59 06:59 18:59 Intake Total 220 240 Balance 220 240 Weight 85.4 kg Intake: IV 100 Oral 120 240 Other: Voiding Method Toilet Toilet # Voids 2 1 1 # Bowel Movements 0 0 - Exam physical exam revealed a 53-year-old female in no distress. Heart: Atraumatic, normocephalic. HEENT: Tracheostomy is in fact. No neck masses, no JVD, no stridor. No thyromegaly. Chest: Good breath sounds bilaterally, no crackles or wheezes. Cardiac: Normal S1 and S2, no S3 gallop. Abdomen: Soft, nontender, no megaly, no rebound, no guarding, positive bowel sounds. Extremities: No clubbing, no edema, no cyanosis. Psychiatric: Normal mood and affect and mental status exam. Neurologic: Alert and oriented 3, no gross focal neurologic deficit. Skin: No rashes. - Labs CBC & Chem 7: 07/20/18 06:23 07/20/18 06:23 Labs: Abnormal Lab Results - Last 24 Hours (Table) 07/19/18 07/20/18 07/20/18 Range/Units 21:00 05:53 06:23 RBC (3.80-5.40) m/uL Hgb (11.4-16.0) gm/dL Hct (34.0-46.0) % Lymphocytes # (1.0-4.8) k/uL Sodium 135 L (137-145) mmol/L BUN 6 L (7-17) mg/dL Glucose 109 H (74-99) mg/dL POC Glucose (mg/dL) 169 H 118 H (75-99) mg/dL 07/20/18 07/20/18 Range/Units 06:23 11:27 RBC 3.73 L (3.80-5.40) m/uL Hgb 10.7 L (11.4-16.0) gm/dL Hct 33.3 L (34.0-46.0) % Lymphocytes # 0.8 L (1.0-4.8) k/uL Sodium (137-145) mmol/L BUN (7-17) mg/dL Glucose (74-99) mg/dL POC Glucose (mg/dL) 122 H (75-99) mg/dL Assessment and Plan Assessment: Impression: 1 acute hypoxic respiratory failure secondary to mucous plugging, tracheobronchitis, possibly some component of cardiomyopathy and LV dysfunction , no evidence of pulmonary edema as noted on the admission chest x-ray. 2 recent tracheostomy for what seemed to be esophageal carcinoma invading the airways. Patient is still undergoing radiation treatment in a different facility. 3 nonischemic cardiomyopathy, normal coronaries as noted on the cardiac catheterization yesterday. Recommendation: Agree with discharge planning on antibiotics, mucolytics, bronchodilators, could be seen on an outpatient basis if needed. Time with Patient: Less than 30
== END 2018-07-20 13:54 | disposition home or self-care (01) | DRG 205 ==
LOC: EC 20:52 → 3SCARD 23:26
PROVIDERS: ADMIT Family Medicine; ATTEND Family Medicine
PROC: B2111ZZ Fluoroscopy of Multiple Coronary Arteries using Low Osmolar Contrast (ICD-10-PCS; 2018-07-19)
PROC: B2151ZZ Fluoroscopy of Left Heart using Low Osmolar Contrast (ICD-10-PCS; 2018-07-19)
PROC: 4A023N7 Measurement of Cardiac Sampling and Pressure, Left Heart, Percutaneous Approach (ICD-10-PCS; principal; 2018-07-19 14:30)
DX: J95.03 Malfunction of tracheostomy stoma (principal); J96.01 Acute respiratory failure with hypoxia; I50.20 Unspecified systolic (congestive) heart failure; T17.490A Other foreign object in trachea causing asphyxiation, initial encounter; I51.81 Takotsubo syndrome; C32.9 Malignant neoplasm of larynx, unspecified; E11.65 Type 2 diabetes mellitus with hyperglycemia; E83.42 Hypomagnesemia; E87.6 Hypokalemia; F32.9 Major depressive disorder, single episode, unspecified; J40 Bronchitis, not specified as acute or chronic; K21.9 Gastro-esophageal reflux disease without esophagitis; Z79.4 Long term (current) use of insulin; Z79.82 Long term (current) use of aspirin; Z79.899 Other long term (current) drug therapy; Z85.01 Personal history of malignant neoplasm of esophagus; Z87.442 Personal history of urinary calculi; Z87.19 Personal history of other diseases of the digestive system; Z91.14 Patient's other noncompliance with medication regimen; R74.8 Abnormal levels of other serum enzymes
CPT/HCPCS: 36415; 71045; 80048; 80053; 80061; 82550; 82553; 83735; 83880; 84484; 85025; 85730; 93005; 93306; 93458; 94640; 96361; 96365; 96376; 99285

== ENCOUNTER 2018-07-26 21:28 | Emergency (ER) | payer OTHER ==
--- NOTE | 2018-07-26 23:04 | XR ---
EXAMINATION TYPE: XR chest 2V DATE OF EXAM: 07/26/2018 COMPARISON: 07/17/2018 HISTORY: Fever TECHNIQUE: Frontal and lateral views of the chest are obtained. FINDINGS: There is tracheostomy. There is right central venous catheter with the tip in the superior vena cava. There is apparent esophageal surgery with gastric pull-through procedure. There is no hea rt failure. Lungs are clear of consolidation. Heart size is normal. There is probably minimal atelect asis in the left lower lobe. The bony thorax appears intact. IMPRESSION: Minimal atelectasis at the left lung base is probably new compared to old exam. No heart failure. No pulmonary consolidation.
--- NOTE | 2018-07-27 01:03 | ED ---
General Adult HPI - General Chief complaint: Recheck/Abnormal Lab/Rx Stated complaint: Trach issues Time Seen by Provider: 07/26/18 21:54 Source: patient Mode of arrival: wheelchair Limitations: no limitations - History of Present Illness Initial comments: This patient's 53-year-old woman with history of tracheostomy who presents to have evaluation for blood from the tracheostomy. She had some coughing earlier and then they noted that the secretions from the tracheostomy appeared to have a pink tinge. They do state that the bleeding appears to have spontaneously stopped now. No pain. No dyspnea. -: minutes(s) Severity scale (1-10): 0 Improves with: none Worsens with: none Associated Symptoms: cough Treatments Prior to Arrival: none - Related Data Home Medications Medication Instructions Recorded Confirmed Ranitidine HCl [Zantac] 150 mg PO BID 05/31/17 08/18/18 Sertraline [Zoloft] 50 mg PO HS 05/31/17 08/18/18 metFORMIN HCL [Glucophage] 500 mg PO BID 05/31/17 08/18/18 ALPRAZolam [Xanax] 0.5 mg PO BID 08/18/18 08/18/18 HYDROcodone/APAP 10-325MG [Cucumber 1 tab PO Q6H 08/18/18 08/18/18 10-325] Lisinopril 20 mg PO DAILY 08/18/18 08/18/18 Montelukast [Singulair] 10 mg PO HS 08/18/18 08/18/18 Ondansetron HCl [Zofran] 8 mg PO TID 08/18/18 08/18/18 Prochlorperazine [Compazine] 10 mg PO Q6H 08/18/18 08/18/18 Previous Rx's Medication Instructions Recorded Acetylcysteine [Mucomyst] 200 mg INHALATION RT-TID #90 vial 07/20/18 Albuterol Nebulized [Ventolin 2.5 mg INHALATION RT-QID PRN #90 07/20/18 Nebulized] nebu Aspirin 81 mg PO DAILY #30 chew 07/20/18 Metoprolol Tartrate [Lopressor] 25 mg PO BID #60 tab 07/20/18 Allergies Allergy/AdvReac Type Severity Reaction Status Date / Time No Known Allergies Allergy Verified 08/18/18 14:40 Review of Systems ROS Statement: Those systems with pertinent positive or pertinent negative responses have been documented in the HPI. ROS Other: All systems not noted in ROS Statement are negative. Constitutional: Reports: fever. Denies: chills Respiratory: Reports: as per HPI, cough, hemoptysis. Denies: dyspnea, wheezes Cardiovascular: Denies: chest pain, palpitations Gastrointestinal: Denies: abdominal pain, vomiting Skin: Denies: rash Hematological/Lymphatic: Denies: easy bleeding Past Medical History Past Medical History: Cancer, Diabetes Mellitus, GERD/Reflux, GI Bleed, Hypertension Additional Past Medical History / Comment(s): esophogeal cancer. hx bleeding ulcer, kidney stone History of Any Multi-Drug Resistant Organisms: None Reported Past Surgical History: Cholecystectomy, Tonsillectomy Additional Past Surgical History / Comment(s): surgery for esophageal cancer, rt eye surgery age 3, D&C, Past Anesthesia/Blood Transfusion Reactions: No Reported Reaction Past Psychological History: Anxiety, Depression Smoking Status: Never smoker Past Alcohol Use History: None Reported Past Drug Use History: None Reported - Past Family History Mother Family Medical History: No Reported History Father Family Medical History: No Reported History General Exam Limitations: no limitations General appearance: alert, in no apparent distress Head exam: Present: atraumatic, normocephalic Eye exam: Present: normal appearance Neck exam: Present: normal inspection, other (There was a trace of red to sputum ) Respiratory exam: Present: wheezes (There is trace expiratory wheeze.). Absent : respiratory distress, rales, rhonchi, stridor, accessory muscle use, decreased breath sounds Cardiovascular Exam: Present: regular rate, normal rhythm, normal heart sounds. Absent: systolic murmur, diastolic murmur, rubs, gallop GI/Abdominal exam: Present: soft. Absent: distended, tenderness, guarding, rebound Extremities exam: Present: normal inspection, normal capillary refill. Absent: pedal edema, calf tenderness Skin exam: Present: warm, dry, intact, normal color. Absent: rash Course Vital Signs 07/26/18 07/27/18 21:30 01:30 Temperature 100.7 F H 98.7 F Pulse Rate 81 64 Respiratory 36 H 20 Rate Blood Pressure 169/105 150/80 O2 Sat by Pulse 99 94 L Oximetry Medical Decision Making - Lab Data Lab Results 07/26/18 Range/Units 23:01 Influenza Type A RNA Not Detected (Not Detectd) Influenza Type B (PCR) Not Detected (Not Detectd) Disposition Clinical Impression: Tracheobronchitis Disposition: HOME SELF-CARE Condition: Good Instructions: Acute Bronchitis (ED) Is patient prescribed a controlled substance at d/c from ED?: No Referrals: Nonstaff,Physician [Primary Care Provider] - 1-2 days
[2018-07-27 01:31] VITALS: BP 150/80; PULSE 64; RESP 20; TEMP 98.7
== END 2018-07-27 01:31 | disposition home or self-care (01) ==
LOC: EC 21:28
DX: J40 Bronchitis, not specified as acute or chronic (principal); E11.9 Type 2 diabetes mellitus without complications; K21.9 Gastro-esophageal reflux disease without esophagitis; I10 Essential (primary) hypertension; F32.9 Major depressive disorder, single episode, unspecified; F41.9 Anxiety disorder, unspecified; Z85.01 Personal history of malignant neoplasm of esophagus; Z79.84 Long term (current) use of oral hypoglycemic drugs; Z79.891 Long term (current) use of opiate analgesic; Z79.899 Other long term (current) drug therapy; Z93.0 Tracheostomy status
CPT/HCPCS: 71046; 87502; 99283

== ENCOUNTER 2018-08-18 13:35 | Inpatient (IN) | payer OTHER ==
[2018-08-18] MEDS ORDERED: SODIUM CHLORIDE 0.9% 500 ML 500 ML IV STA (14:38)
--- NOTE | 2018-08-18 14:47 | ED ---
General Adult HPI - General Chief complaint: Recheck/Abnormal Lab/Rx Stated complaint: low hemoglobin, low potassium Source: patient, family Mode of arrival: wheelchair Limitations: no limitations, physical limitation - History of Present Illness Initial comments: Dictation was produced using [employer] dictation software. please excuse any grammatical, word or spelling errors. Chief Complaint: 53-year-old female past medical history of esophageal cancer status post tracheostomy performed 2 months ago presents with hemoptysis, generalized weakness, laboratory abnormality. History of Present Illness: Patient is a 53-year-old female who was visited by her home health care nurse. Patient was told to come to the emergency department for low hemoglobin and low potassium. Patient has been having intermittent hemoptysis of dark blood from her tracheostomy. Patient has been feeling weak for proximally 5 days. Her tracheostomy was performed at [facility]. Patient does not have a feeding tube. Denies any pain complaints. Patient denies any shortness of breath. The ROS documented in this emergency department record has been reviewed and confirmed by me. Those systems with pertinent positive or negative responses have been documented in the HPI. All other systems are other negative and/or noncontributory. - Related Data Home Medications Medication Instructions Recorded Confirmed Ranitidine HCl [Zantac] 150 mg PO BID 05/31/17 08/18/18 Sertraline [Zoloft] 50 mg PO HS 05/31/17 08/18/18 metFORMIN HCL [Glucophage] 500 mg PO BID 05/31/17 08/18/18 ALPRAZolam [Xanax] 0.5 mg PO BID 08/18/18 08/18/18 HYDROcodone/APAP 10-325MG [[place] 1 tab PO Q6H 08/18/18 08/18/18 10-325] Lisinopril 20 mg PO DAILY 08/18/18 08/18/18 Montelukast [Singulair] 10 mg PO HS 08/18/18 08/18/18 Ondansetron HCl [Zofran] 8 mg PO TID 08/18/18 08/18/18 Prochlorperazine [Compazine] 10 mg PO Q6H 08/18/18 08/18/18 Previous Rx's Medication Instructions Recorded Acetylcysteine [Mucomyst] 200 mg INHALATION RT-TID #90 vial 07/20/18 Albuterol Nebulized [Ventolin 2.5 mg INHALATION RT-QID PRN #90 07/20/18 Nebulized] nebu Aspirin 81 mg PO DAILY #30 chew 07/20/18 Metoprolol Tartrate [Lopressor] 25 mg PO BID #60 tab 07/20/18 guaiFENesin [Mucinex] 1,200 mg PO Q12HR #30 tablet.er 07/20/18 Allergies Allergy/AdvReac Type Severity Reaction Status Date / Time No Known Allergies Allergy Verified 08/18/18 14:40 Review of Systems ROS Statement: Those systems with pertinent positive or pertinent negative responses have been documented in the HPI. ROS Other: All systems not noted in ROS Statement are negative. 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 hx bleeding ulcer, kidney stone History of Any Multi-Drug Resistant Organisms: None Reported Past Surgical History: Cholecystectomy, Tonsillectomy Additional Past Surgical History / Comment(s): surgery for esophageal cancer, rt eye surgery age 3, D&C, Past Anesthesia/Blood Transfusion Reactions: No Reported Reaction Past Psychological History: Anxiety, Depression Smoking Status: Never smoker Past Alcohol Use History: None Reported Past Drug Use History: None Reported - Past Family History Mother Family Medical History: No Reported History Father Family Medical History: No Reported History General Exam - General Exam Comments Initial Comments: PHYSICAL EXAM:General Impression: Alert and oriented x3, not in acute distress HEENT: Normocephalic atraumatic, extra-ocular movements intact, pupils equal and reactive to light bilaterally, mucous membranes moist, tracheostomy in place with dark discharge around the obturatorCardiovascular: Heart regular rate and rhythm, S1&S2 audible, no murmurs, rubs or gallopsChest: Lungs clear to auscultation bilaterally, no rhonchi, no wheeze, no ralesAbdomen: Bowel sounds present, abdomen soft, non-tender, non-distended, no organomegaly Musculoskeletal: Pulses present and equal in all extremities, no peripheral edemaMotor: Power 5/5 bilaterally, no focal deficits notedNeurological: CN II- XII grossly intact, no focal motor or sensory deficits notedSkin: Intact with no visualized rashesPsych: Normal affect and mood Limitations: no limitations, physical limitation Course Vital Signs 08/18/18 08/18/18 13:51 17:34 Temperature 98.4 F Pulse Rate 70 80 Respiratory 18 18 Rate Blood Pressure 100/63 136/76 O2 Sat by Pulse 96 98 Oximetry Medical Decision Making - Medical Decision Making ED course: 53-year-old female presents with chief complaint of abnormal labs done outpatient and drainage from trachea. Signs upon arrival are within acceptable limits. EKG shows sinus rhythm, ventricular rate of 79, UT interval 116 QRS 118 QTc 573. This EKG is consistent with prolonged QT. Laboratory evaluation obtained. Hemoglobin stable with the level of 10.4. This appears to be within acceptable limits for this patient. Sodium 132, potassium 2.3. Patient also has a magnesium of 1.2. Lactic acidosis of 2.4. Rest of metabolic panel is unremarkable. Patient has no pain complaints at this time. Chest x-ray was obtained showing suspicion of nodular density in the left lung which could represent pulmonary metastasi EKG showed prolonged QT. Given degree of patient's electronic derangement Y have patient admitted. She is given by mouth and IV potassium. Patient also has magnesium depleted. - Lab Data Result diagrams: 08/18/18 16:02 08/18/18 15:00 Lab Results 08/18/18 08/18/18 08/18/18 Range/Units 15:00 15:00 15:00 WBC (3.8-10.6) k/uL RBC (3.80-5.40) m/uL Hgb (11.4-16.0) gm/dL Hct (34.0-46.0) % MCV (80.0-100.0) fL MCH (25.0-35.0) pg MCHC (31.0-37.0) g/dL RDW (11.5-15.5) % Plt Count (150-450) k/uL Neutrophils % (Manual) % Band Neutrophils % % Lymphocytes % (Manual) % Monocytes % (Manual) % Neutrophils # (Manual) (1.3-7.7) k/uL Lymphocytes # (Manual) (1.0-4.8) k/uL Monocytes # (Manual) (0-1.0) k/uL Nucleated RBCs (0-0) /100 WBC Manual Slide Review Anisocytosis PT (9.0-12.0) sec INR (<1.2) APTT (22.0-30.0) sec Sodium 132 L (137-145) mmol/L Potassium 2.3 L* (3.5-5.1) mmol/L Chloride 92 L (98-107) mmol/L Carbon Dioxide 28 (22-30) mmol/L Anion Gap 12 mmol/L BUN 28 H (7-17) mg/dL Creatinine 0.83 (0.52-1.04) mg/dL Est GFR (CKD-EPI)AfAm >90 (>60 ml/min/1.73 sqM) Est GFR (CKD-EPI)NonAf 80 (>60 ml/min/1.73 sqM) Glucose 108 H (74-99) mg/dL Plasma Lactic Acid Niall 2.4 H* (0.7-2.0) mmol/L Calcium 7.4 L (8.4-10.2) mg/dL Magnesium 1.2 L (1.6-2.3) mg/dL Total Bilirubin 0.7 (0.2-1.3) mg/dL AST 114 H (14-36) U/L ALT 50 (9-52) U/L Alkaline Phosphatase 63 (38-126) U/L Total Creatine Kinase 205 H (30-135) U/L CK-MB (CK-2) 0.8 (0.0-2.4) ng/mL CK-MB (CK-2) Rel Index 0.4 Troponin I 0.026 (0.000-0.034) ng/mL Total Protein 6.2 L (6.3-8.2) g/dL Albumin 2.8 L (3.5-5.0) g/dL Blood Type Blood Type Confirm Blood Type Recheck Antibody Screen Spec Expiration Date 08/18/18 08/18/18 08/18/18 Range/Units 15:00 15:00 16:02 WBC 6.7 (3.8-10.6) k/uL RBC 3.66 L (3.80-5.40) m/uL Hgb 10.4 L (11.4-16.0) gm/dL Hct 31.6 L (34.0-46.0) % MCV 86.4 (80.0-100.0) fL MCH 28.6 (25.0-35.0) pg MCHC 33.1 (31.0-37.0) g/dL RDW 18.1 H (11.5-15.5) % Plt Count 199 (150-450) k/uL Neutrophils % (Manual) 70 % Band Neutrophils % 3 % Lymphocytes % (Manual) 13 % Monocytes % (Manual) 14 % Neutrophils # (Manual) 4.80 (1.3-7.7) k/uL Lymphocytes # (Manual) 0.87 L (1.0-4.8) k/uL Monocytes # (Manual) 0.94 (0-1.0) k/uL Nucleated RBCs 0 (0-0) /100 WBC Manual Slide Review Performed Anisocytosis Slight PT 11.5 (9.0-12.0) sec INR 1.1 (<1.2) APTT 24.4 (22.0-30.0) sec Sodium (137-145) mmol/L Potassium (3.5-5.1) mmol/L Chloride (98-107) mmol/L Carbon Dioxide (22-30) mmol/L Anion Gap mmol/L BUN (7-17) mg/dL Creatinine (0.52-1.04) mg/dL Est GFR (CKD-EPI)AfAm (>60 ml/min/1.73 sqM) Est GFR (CKD-EPI)NonAf (>60 ml/min/1.73 sqM) Glucose (74-99) mg/dL Plasma Lactic Acid Niall (0.7-2.0) mmol/L Calcium (8.4-10.2) mg/dL Magnesium (1.6-2.3) mg/dL Total Bilirubin (0.2-1.3) mg/dL AST (14-36) U/L ALT (9-52) U/L Alkaline Phosphatase (38-126) U/L Total Creatine Kinase (30-135) U/L CK-MB (CK-2) (0.0-2.4) ng/mL CK-MB (CK-2) Rel Index Troponin I (0.000-0.034) ng/mL Total Protein (6.3-8.2) g/dL Albumin (3.5-5.0) g/dL Blood Type A Positive Blood Type Confirm Blood Type Recheck CABO Indicated Antibody Screen NEGATIVE Spec Expiration Date 08/21/2018 - 229908/18/18 Range/Units 16:04 WBC (3.8-10.6) k/uL RBC (3.80-5.40) m/uL Hgb (11.4-16.0) gm/dL Hct (34.0-46.0) % MCV (80.0-100.0) fL MCH (25.0-35.0) pg MCHC (31.0-37.0) g/dL RDW (11.5-15.5) % Plt Count (150-450) k/uL Neutrophils % (Manual) % Band Neutrophils % % Lymphocytes % (Manual) % Monocytes % (Manual) % Neutrophils # (Manual) (1.3-7.7) k/uL Lymphocytes # (Manual) (1.0-4.8) k/uL Monocytes # (Manual) (0-1.0) k/uL Nucleated RBCs (0-0) /100 WBC Manual Slide Review Anisocytosis PT (9.0-12.0) sec INR (<1.2) APTT (22.0-30.0) sec Sodium (137-145) mmol/L Potassium (3.5-5.1) mmol/L Chloride (98-107) mmol/L Carbon Dioxide (22-30) mmol/L Anion Gap mmol/L BUN (7-17) mg/dL Creatinine (0.52-1.04) mg/dL Est GFR (CKD-EPI)AfAm (>60 ml/min/1.73 sqM) Est GFR (CKD-EPI)NonAf (>60 ml/min/1.73 sqM) Glucose (74-99) mg/dL Plasma Lactic Acid Niall (0.7-2.0) mmol/L Calcium (8.4-10.2) mg/dL Magnesium (1.6-2.3) mg/dL Total Bilirubin (0.2-1.3) mg/dL AST (14-36) U/L ALT (9-52) U/L Alkaline Phosphatase (38-126) U/L Total Creatine Kinase (30-135) U/L CK-MB (CK-2) (0.0-2.4) ng/mL CK-MB (CK-2) Rel Index Troponin I (0.000-0.034) ng/mL Total Protein (6.3-8.2) g/dL Albumin (3.5-5.0) g/dL Blood Type Blood Type Confirm A Positive Blood Type Recheck Antibody Screen Spec Expiration Date Disposition Clinical Impression: Electrolyte abnormality Disposition: ADMITTED IP TO THIS [facility] Condition: Fair Referrals: Nonstaff,Physician [Primary Care Provider] - 1-2 days Decision Time: 18:15
[2018-08-18 15:35] LABS: INR 1.1 (<1.2); Partial Thromboplastin Time 24.4 sec (22.0-30.0); Prothrombin Time 11.5 sec (9.0-12.0)
[2018-08-18 15:36] LABS: ALT 50 U/L (9-52); AST 114 U/L (14-36); Albumin 2.8 g/dL (3.5-5.0); Alkaline Phosphatase 63 U/L (38-126); Anion Gap 12 mmol/L; Blood Urea Nitrogen 28 mg/dL (7-17); Calcium 7.4 mg/dL (8.4-10.2); Carbon Dioxide 28 mmol/L (22-30); Chloride 92 mmol/L (98-107); Glucose 108 mg/dL (74-99); Magnesium 1.2 mg/dL (1.6-2.3); Sodium 132 mmol/L (137-145); Total Bilirubin 0.7 mg/dL (0.2-1.3); Total Protein 6.2 g/dL (6.3-8.2)
[2018-08-18 15:47] LABS: Potassium 2.3 mmol/L (3.5-5.1)
[2018-08-18 15:49] LABS: Creatine Kinase MB 0.8 ng/mL (0.0-2.4); Troponin I 0.026 ng/mL (0.000-0.034)
[2018-08-18] MEDS ORDERED: POTASSIUM CHLORIDE 60 MEQ in WATER FOR INJECTION 1 100ML.BAG IVPB STA (15:54)
[2018-08-18] MEDS ORDERED: POTASSIUM CHLORIDE ER 10 MEQ TAB.ER.PRT PO STA (15:55)
--- NOTE | 2018-08-18 15:57 | XR ---
EXAMINATION TYPE: XR chest 2V DATE OF EXAM: 08/18/2018 COMPARISON: 07/26/2018 HISTORY: 53-year-old female with weakness TECHNIQUE: AP and lateral views FINDINGS: Tracheostomy cannula is present. Retrocardiac lucency suggests gastric pull-through after esophagecto my. There is a reported history of esophageal cancer. Right anterior chest wall injection port with c atheter tip at the upper to mid SVC level. There is some similar curvilinear density at the left base that could represent some eventration along the left hemidiaphragm are identified atelectasis or sca rring. Patchy posterior basilar opacity on the lateral view. Nodular density left midlung not clearly seen previously. IMPRESSION: 1. Given patient's history of esophageal cancer, suspect esophagectomy with gastric pull-through. 2. Nodular density left midlung not clearly seen previously. A pulmonary metastasis should be exclude d. 3. Patchy posterior basilar opacity on the lateral view suggests atelectasis or infiltrate.
[2018-08-18] MEDS: MAGNESIUM SULFATE-D5W PMX 1 GM in DEXTROSE/WATER 1 100ML.BAG IVPB SCH ×2 (16:35→17:29)
[2018-08-18 17:23] LABS: Anisocytosis Slight; HCT 31.6 % (34.0-46.0); HGB 10.4 gm/dL (11.4-16.0); MCH 28.6 pg (25.0-35.0); MCHC 33.1 g/dL (31.0-37.0); MCV 86.4 fL (80.0-100.0); Mean Platelet Volume 7.7; Platelet Count 199 k/uL (150-450); RBC 3.66 m/uL (3.80-5.40); RDW 18.1 % (11.5-15.5); WBC 6.7 k/uL (3.8-10.6)
[2018-08-18] MEDS: POTASSIUM CHLORIDE 20 MEQ in WATER FOR INJECTION 1 100ML.BAG IVPB SCH ×3 (17:27→23:59)
[2018-08-18 17:51] LABS: Band Neutrophils % 3 %; Lymphocytes # (M) 0.87 k/uL (1.0-4.8); Monocytes # (M) 0.94 k/uL (0-1.0); Neutrophils % (M) 70 %; Nucleated Red Blood Cells 0 /100 WBC (0-0); Total Cells Counted 100
[2018-08-18] MEDS ORDERED: NALOXONE 0.4 MG/ML 1 ML VIAL IV PRN (18:12)
[2018-08-18 20:47] VITALS: BMI 25.7
[2018-08-18 20:53] LABS: Glucose,Whole Blood 210 mg/dL (75-99)
[2018-08-18] MEDS ORDERED: SERTRALINE 50 MG TAB PO SCH (21:00)
[2018-08-18] MEDS ORDERED: MONTELUKAST 10 MG TAB PO SCH (21:00)
[2018-08-18] MEDS ORDERED: ACETAMINOPHEN TAB 325 MG TAB PO PRN (21:01)
[2018-08-18] MEDS: METOPROLOL TARTRATE 25 MG TAB PO SCH (21:32)
[2018-08-18] MEDS: HYDROcodone/APAP 10-325MG 1 EACH TAB PO SCH (21:32)
[2018-08-18] MEDS: ALPRAZolam 0.5 MG TAB PO SCH (21:32)
[2018-08-18] MEDS: FAMOTIDINE 20 MG TAB PO SCH (21:32)
[2018-08-18] MEDS: metFORMIN 500 MG TAB PO SCH (21:32)
[2018-08-18] MEDS: ONDANSETRON ODT 8 MG TAB.RAPDIS PO SCH (21:33)
[2018-08-18] MEDS: PROCHLORPERAZINE 10 MG TAB PO SCH (21:33)
[2018-08-18] MEDS: INSULIN ASPART 100 UNIT/ML 1 ML 10 ML VIAL SQ SCH (22:16)
[2018-08-18] MEDS ORDERED: LEVOFLOXACIN 500MG-D5W PMX 500 MG in DEXTROSE/WATER 1 100ML.BAG IVPB SCH (23:00)
[2018-08-18] MEDS ORDERED: Potassium Replacement Protocol 1 EACH MISC MISCELLANE PRN (23:03)
[2018-08-18] MEDS ORDERED: Magnesium Replacement Protocol 1 EACH MISC MISCELLANE PRN (23:05)
[2018-08-19] MEDS: SODIUM CHLORIDE 0.9% 1,000 ML IV SCH ×2 (01:45→13:37)
[2018-08-19] MEDS: HYDROcodone/APAP 10-325MG 1 EACH TAB PO SCH ×3 (03:05→16:06)
[2018-08-19] MEDS: PROCHLORPERAZINE 10 MG TAB PO SCH ×3 (03:06→16:06)
[2018-08-19 03:51] LABS: Hemoglobin A1C 7.5 % (4.0-6.0)
[2018-08-19] MEDS: POTASSIUM CHLORIDE ER 20 MEQ TAB.ER PO SCH ×5 (04:28→13:37)
[2018-08-19] MEDS ORDERED: POTASSIUM CHLORIDE ER 20 MEQ TAB.ER PO SCH (05:00)
[2018-08-19 06:30] VITALS: RESP 17
[2018-08-19 07:06] LABS: Glucose,Whole Blood 213 mg/dL (75-99)
[2018-08-19] MEDS ORDERED: INSULIN ASPART 100 UNIT/ML 1 ML 10 ML VIAL SQ SCH (07:30)
[2018-08-19] MEDS: ALBUTEROL NEBULIZED 2.5 MG/3 ML INHALATION PRN ×2 (07:33→12:06)
[2018-08-19] MEDS: ACETYLCYSTEINE 800 MG/4 ML VIAL INHALATION SCH ×2 (07:33→12:06)
[2018-08-19 07:51] LABS: Anisocytosis Slight; Basophils % (A) 0 %; Eosinophils # (A) 0.1 k/uL (0-0.7); Eosinophils % (A) 1 %; HCT 29.7 % (34.0-46.0); HGB 9.7 gm/dL (11.4-16.0); Lymphocytes # (A) 0.5 k/uL (1.0-4.8); Lymphocytes % (A) 8 %; MCH 28.5 pg (25.0-35.0); MCHC 32.5 g/dL (31.0-37.0); MCV 87.6 fL (80.0-100.0); Mean Platelet Volume 7.3; Monocytes # (A) 0.3 k/uL (0-1.0); Monocytes % (A) 5 %; Neutrophils # (A) 4.9 k/uL (1.3-7.7); Neutrophils % (A) 83 %; Platelet Count 189 k/uL (150-450); RBC 3.39 m/uL (3.80-5.40); RDW 17.6 % (11.5-15.5); WBC 5.9 k/uL (3.8-10.6)
[2018-08-19 07:59] LABS: ALT 54 U/L (9-52); AST 115 U/L (14-36); Albumin 2.5 g/dL (3.5-5.0); Alkaline Phosphatase 57 U/L (38-126); Anion Gap 9 mmol/L; Blood Urea Nitrogen 26 mg/dL (7-17); Calcium 7.6 mg/dL (8.4-10.2); Carbon Dioxide 28 mmol/L (22-30); Chloride 96 mmol/L (98-107); Glucose 207 mg/dL (74-99); Magnesium 1.6 mg/dL (1.6-2.3); Potassium 3.1 mmol/L (3.5-5.1); Sodium 133 mmol/L (137-145); Total Bilirubin 0.6 mg/dL (0.2-1.3); Total Protein 5.6 g/dL (6.3-8.2)
[2018-08-19] MEDS ORDERED: ASPIRIN 81 MG PO SCH (09:00)
[2018-08-19] MEDS ORDERED: LISINOPRIL 20 MG TAB PO SCH (09:00)
[2018-08-19] MEDS: metFORMIN 500 MG TAB PO SCH (09:02)
[2018-08-19] MEDS: FAMOTIDINE 20 MG TAB PO SCH (09:02)
[2018-08-19] MEDS: METOPROLOL TARTRATE 25 MG TAB PO SCH (09:03)
[2018-08-19] MEDS: ALPRAZolam 0.5 MG TAB PO SCH (09:03)
[2018-08-19] MEDS: INSULIN ASPART 100 UNIT/ML 1 ML 10 ML VIAL SQ SCH ×2 (09:06→12:39)
[2018-08-19] MEDS: ONDANSETRON ODT 8 MG TAB.RAPDIS PO SCH ×3 (09:13→15:54)
[2018-08-19] MEDS ORDERED: Potassium Replacement Protocol 1 EACH MISC MISCELLANE PRN (09:52)
[2018-08-19 11:14] LABS: Glucose,Whole Blood 179 mg/dL (75-99)
[2018-08-19 12:40] VITALS: BP 95/61; PULSE 70; TEMP 97.5
--- NOTE | 2018-08-19 13:24 | P.CONS ---
History of Present Illness - Reason for Consult Consult date: 08/19/18 esophageal cancer Requesting physician: Stephany Anguiano - Chief Complaint Lab abnormalities - History of Present Illness Ms. Hurley is a very pleasant 53-year-old female with what sounds like recently diagnosed esophageal cancer, status post tracheostomy at [facility] couple months ago who is here for lab abnormalities found by home visiting nurse. Unfortunately do not have any of her records regarding her malignancy. Workup here revealed WBC 6.7, hemoglobin 10.4, platelet 199, potassium 2.3, sodium 132, magnesium 1.2. Her electrolytes were replaced, repeat labs show a hemoglobin of 9.7, sodium 133, potassium 3.1, magnesium 1.6. Chest x-ray was done in the ER which showed a nodular density in the left midlung that was not clearly seen previously, pulmonary metastases could not be excluded, as well as a patchy posterior by basilar opacity on the lateral use suggesting atelectasis or infiltrate. We were called regarding her chest x-ray findings. She states her physicians, oncologist and radiation oncologists, are in [facility], and she had her trach placed in [facility]. Per nursing staff, she is being transferred to [facility] due to persistent tracheostomy oozing. Pt overall however states she feels tired. Review of Systems All systems: negative Constitutional: Reports as per HPI Past Medical History Past Medical History: Cancer, Diabetes Mellitus, GERD/Reflux, GI Bleed, Hypertension Additional Past Medical History / Comment(s): esophogeal cancer. hx bleeding ulcer, kidney stone History of Any Multi-Drug Resistant Organisms: None Reported Past Surgical History: Cholecystectomy, Tonsillectomy Additional Past Surgical History / Comment(s): surgery for esophageal cancer, rt eye surgery age 3, D&C, Past Anesthesia/Blood Transfusion Reactions: No Reported Reaction Past Psychological History: Anxiety, Depression Smoking Status: Never smoker Past Alcohol Use History: None Reported Past Drug Use History: None Reported - Past Family History Mother Family Medical History: No Reported History Father Family Medical History: No Reported History Medications and Allergies Home Medications Medication Instructions Recorded Confirmed Type Ranitidine HCl [Zantac] 150 mg PO BID 05/31/17 08/18/18 History Sertraline [Zoloft] 50 mg PO HS 05/31/17 08/18/18 History metFORMIN HCL [Glucophage] 500 mg PO BID 05/31/17 08/18/18 History Acetylcysteine [Mucomyst] 200 mg INHALATION RT-TID #90 vial 07/20/18 08/18/18 Rx Albuterol Nebulized [Ventolin 2.5 mg INHALATION RT-QID PRN #90 07/20/18 Rx Nebulized] nebu Aspirin 81 mg PO DAILY #30 chew 07/20/18 08/18/18 Rx Metoprolol Tartrate [Lopressor] 25 mg PO BID #60 tab 07/20/18 08/18/18 Rx ALPRAZolam [Xanax] 0.5 mg PO BID 08/18/18 08/18/18 History HYDROcodone/APAP 10-325MG [[place] 1 tab PO Q6H 08/18/18 08/18/18 History 10-325] Lisinopril 20 mg PO DAILY 08/18/18 08/18/18 History Montelukast [Singulair] 10 mg PO HS 08/18/18 08/18/18 History Ondansetron HCl [Zofran] 8 mg PO TID 08/18/18 08/18/18 History Prochlorperazine [Compazine] 10 mg PO Q6H 08/18/18 08/18/18 History Allergies Allergy/AdvReac Type Severity Reaction Status Date / Time No Known Allergies Allergy Verified 08/18/18 14:40 Physical Exam Vitals: Vital Signs Temp Pulse Pulse Resp BP BP Pulse Ox 08/19/18 10:48 97.9 F 08/19/18 08:35 55 L 17 08/19/18 08:01 78 08/19/18 07:33 76 08/19/18 06:28 55 L 17 100/64 97 08/19/18 05:33 95.5 F L 08/19/18 04:26 94.2 F L 08/19/18 02:00 96.5 F L 08/18/18 21:40 18 95 08/18/18 20:15 100.9 F H 110 H 136/72 08/18/18 19:45 24 82 L 08/18/18 19:00 86 18 150/95 91 L 08/18/18 18:00 86 18 146/83 91 L 08/18/18 17:34 80 18 136/76 98 08/18/18 15:00 74 18 131/72 08/18/18 13:51 98.4 F 70 18 100/63 96 Intake and Output 08/18/18 08/19/18 08/19/18 22:59 06:59 14:59 Intake Total 350 700 Balance 350 700 Intake: Intake, IV Titration 700 Amount Levofloxacin 500Mg-D5w 100 Pmx 500 mg In Dextrose/ Water 1 100ml.bag @ 100 mls/hr IVPB Q24H [facility] Rx#: [id number] Potassium Chloride 20 meq 300 In Water For Injection 1 100ml.bag @ 50 mls/hr IVPB Q2H [facility] Rx#: [id number] Sodium Chloride 0.9% 1, 300 000 ml @ 75 mls/hr IV . [id number] [facility] Rx#:[id number] Oral 350 Other: Voiding Method Toilet Toilet # Voids 1 Weight 81.5 kg General: In no acute distress. HEENT: Mucosa moist. Neck: Neck supple. Lymph: No cervical/supraclavicular LAD. Lungs: CTA-B without wheezing or rhonchi. Heart: RRR. No LE edema. Abdomen: Soft, nontender, nondistended, with positive bowel sounds. MSK: 4/4 strength in all 4 extremities. Neuro: Alert and oriented 3. No obvious gross neurologic deficits. Skin: No jaundice or rash. Psych: Appropriate affect. Results CBC & Chem 7: 08/19/18 07:36 08/19/18 07:36 Labs: Abnormal Lab Results - Last 24 Hours (Table) 08/18/18 08/18/18 08/18/18 Range/Units 15:00 15:00 15:00 RBC (3.80-5.40) m/uL Hgb (11.4-16.0) gm/dL Hct (34.0-46.0) % RDW (11.5-15.5) % Lymphocytes # (1.0-4.8) k/uL Lymphocytes # (Manual) (1.0-4.8) k/uL Sodium 132 L (137-145) mmol/L Potassium 2.3 L* (3.5-5.1) mmol/L Chloride 92 L (98-107) mmol/L BUN 28 H (7-17) mg/dL Glucose 108 H (74-99) mg/dL POC Glucose (mg/dL) (75-99) mg/dL Hemoglobin A1c (4.0-6.0) % Plasma Lactic Acid Niall 2.4 H* (0.7-2.0) mmol/L Calcium 7.4 L (8.4-10.2) mg/dL Magnesium 1.2 L (1.6-2.3) mg/dL AST 114 H (14-36) U/L ALT (9-52) U/L Total Creatine Kinase 205 H (30-135) U/L Total Protein 6.2 L (6.3-8.2) g/dL Albumin 2.8 L (3.5-5.0) g/dL 08/18/18 08/18/18 08/18/18 Range/Units 16:02 16:02 20:19 RBC 3.66 L (3.80-5.40) m/uL Hgb 10.4 L (11.4-16.0) gm/dL Hct 31.6 L (34.0-46.0) % RDW 18.1 H (11.5-15.5) % Lymphocytes # (1.0-4.8) k/uL Lymphocytes # (Manual) 0.87 L (1.0-4.8) k/uL Sodium (137-145) mmol/L Potassium (3.5-5.1) mmol/L Chloride (98-107) mmol/L BUN (7-17) mg/dL Glucose (74-99) mg/dL POC Glucose (mg/dL) 210 H (75-99) mg/dL Hemoglobin A1c 7.5 H (4.0-6.0) % Plasma Lactic Acid Niall (0.7-2.0) mmol/L Calcium (8.4-10.2) mg/dL Magnesium (1.6-2.3) mg/dL AST (14-36) U/L ALT (9-52) U/L Total Creatine Kinase (30-135) U/L Total Protein (6.3-8.2) g/dL Albumin (3.5-5.0) g/dL 08/19/18 08/19/18 08/19/18 Range/Units 03:30 07:05 07:36 RBC (3.80-5.40) m/uL Hgb (11.4-16.0) gm/dL Hct (34.0-46.0) % RDW (11.5-15.5) % Lymphocytes # (1.0-4.8) k/uL Lymphocytes # (Manual) (1.0-4.8) k/uL Sodium 133 L (137-145) mmol/L Potassium 2.6 L* 3.1 L (3.5-5.1) mmol/L Chloride 96 L (98-107) mmol/L BUN 26 H (7-17) mg/dL Glucose 207 H (74-99) mg/dL POC Glucose (mg/dL) 213 H (75-99) mg/dL Hemoglobin A1c (4.0-6.0) % Plasma Lactic Acid Niall (0.7-2.0) mmol/L Calcium 7.6 L (8.4-10.2) mg/dL Magnesium (1.6-2.3) mg/dL AST 115 H (14-36) U/L ALT 54 H (9-52) U/L Total Creatine Kinase (30-135) U/L Total Protein 5.6 L (6.3-8.2) g/dL Albumin 2.5 L (3.5-5.0) g/dL 08/19/18 Range/Units 07:36 RBC 3.39 L (3.80-5.40) m/uL Hgb 9.7 L (11.4-16.0) gm/dL Hct 29.7 L (34.0-46.0) % RDW 17.6 H (11.5-15.5) % Lymphocytes # 0.5 L (1.0-4.8) k/uL Lymphocytes # (Manual) (1.0-4.8) k/uL Sodium (137-145) mmol/L Potassium (3.5-5.1) mmol/L Chloride (98-107) mmol/L BUN (7-17) mg/dL Glucose (74-99) mg/dL POC Glucose (mg/dL) (75-99) mg/dL Hemoglobin A1c (4.0-6.0) % Plasma Lactic Acid Niall (0.7-2.0) mmol/L Calcium (8.4-10.2) mg/dL Magnesium (1.6-2.3) mg/dL AST (14-36) U/L ALT (9-52) U/L Total Creatine Kinase (30-135) U/L Total Protein (6.3-8.2) g/dL Albumin (3.5-5.0) g/dL Chest x-ray: report reviewed Assessment and Plan Assessment: 1. Electrolyte derangement 2. Normocytic anemia 3. Esophageal cancer status post tracheostomy 4. Possible pneumonia 5. Nodular density in the left midlung,? Lung metastases? Plan: Ms. Hurley is a very pleasant 53-year-old female with multiple comorbidities as listed above including recently diagnosed esophageal cancer, follows at [facility], status post tracheostomy, who is here for lab abnormalities including hypokalemia and hypomagnesemia which are being replaced. Workup in the ER including a chest x-ray revealed a new nodular density in the left midlung, new compared to prior x-rays. Also suggestive of a basilar pneumonia. She is on antibiotics for possible pneumonia. It seems that she has/is receiving chemotherapy and RT at [facility] (or [facility]? pt slightly difficult to understand due to trach and inability to talk). Spoke with nursing staff. She is being transferred to [facility] for further care of her trach, which continues to ooze. It sounds like her records and physicians are there. Agree with transfer. Further work up of possible new lung nodule to be discussed by her primary oncology team. Discussed with the patient detail and she is agreeable to the plan. All of her questions were answered.
--- NOTE | 2018-08-19 22:09 | CONS ---
CONSULTATION REASON FOR CONSULTATION: Hemoptysis, esophageal cancer, status post tracheostomy. This is a patient who was seen in the emergency room yesterday. She apparently came into the emergency room complaining of hemoptysis and generalized weakness. The patient was seen by one of the ER physicians. She apparently was sent in by her home health care nurse. The patient was told to come in because her hemoglobin was low and she was coughing up blood and her potassium was off. The patient cannot really give any history as she has a tracheostomy tube in place and does not use a speaking valve. She is somewhat of a lethargic patient who really is not forthcoming in giving any history, but anyway recently had a tracheostomy performed at [facility]. Has not been feeling well for about 5 days. More recently, has been coughing up bright red blood. The patient had her tracheostomy performed about a month ago at [facility]. The patient has a history of esophageal cancer. The patient was sitting in bed. She was somewhat pale. I did explain to the nurse that the patient should be transferred back to [facility] as the tracheostomy was done there. This could be bleeding from the lung or could be bleeding from the esophagus or more significantly, could be a sentinel bleed and could represent a precursor to innominate artery rupture. MEDICATIONS: Her home medications are reviewed. She is on ranitidine, Zoloft, Glucophage, Xanax, [place], lisinopril, Singulair, Zofran, and Compazine. Other medications included Mucomyst, albuterol, aspirin, metoprolol, Mucinex. ALLERGIES: Denied. PAST MEDICAL HISTORY: Includes esophageal cancer, diabetes, gastroesophageal reflux disease, GI bleed, hypertension, bleeding ulcer, kidney stones. SURGICAL HISTORY: Includes tonsillectomy, tracheostomy, cholecystectomy, esophageal surgery/esophagectomy. She has also had right eye surgery and D and C. She has a history of anxiety and depression. SOCIAL HISTORY: Significant that she is a nonsmoker. No alcohol use or illicit drug use. FAMILY HISTORY: Not known or not reported. REVIEW OF SYSTEMS: Is difficult to obtain because the patient currently is not able to really verbalize any issues. She writes everything down on a tablet. Her primary issues include weakness and coughing up bright red blood. Current vital signs are reviewed. Her temperature is 95.5, heart rate 78, respiratory rate 17, blood pressure 100/64, mean 76. Her trach collar saturations is 97%. Appears in no acute distress. Is pale. HEENT examination is grossly unremarkable. There is facial pallor. The membranes are pale. Neck is supple. There is a midline tracheostomy. There is some bright red blood noted within the lumen of the tracheostomy. Neck is otherwise supple. Cardiovascular examination reveals regular rhythm and rate. S1, S2 normal. Heart rate 70. Lungs reveal coarse rhonchi. Breath sounds are diminished. No wheezes. A few crackles. Abdomen is soft. Bowel sounds are heard. Extremities are intact. No cyanosis, clubbing, or edema. Skin without rash. Neurologic examination is brief but appears to be nonfocal. LABS: Reviewed. White count 5.9, hemoglobin 9.7, hematocrit 29.7, platelet count 189,000. Sodium 133, potassium 3.1, chloride 96, CO2 of 28 and anion gap is 9. BUN and creatinine were 26 and 0.7. The rest of her labs are reviewed. AST 115, ALT is 54. Albumin 2.5. The patient had a chest x-ray done. It shows some bilateral atelectasis. She apparently has had a previous esophagectomy with what appears to be a gastric pull- through. There is a nodular density in the left mid lung. This could represent pulmonary metastasis. There is also some atelectasis or infiltrates at both bases posteriorly. Medications are reviewed. ASSESSMENT: 1. Hemoptysis, status post recent tracheostomy for esophageal cancer. 2. Status post esophagectomy with gastric pull-through. 3. Anemia secondary to chronic illness and hemoptysis. 4. History of diabetes mellitus. 5. History of gastroesophageal reflux disease. 6. History of gastrointestinal bleed. 7. History of hypertension. 8. History of nephrolithiasis. 9. Previous history of bleeding ulcer. PLAN: We will see if we can get the patient transferred back to [facility] since they did the tracheostomy and the esophagectomy there. We will have the primary call and give report. No additional recommendations are made. It would be hard to get somebody to see the patient today at this institution. In addition, since the tracheostomy and esophageal surgery was not done here, it is more likely that we will want the patient transferred. Additional recommendations and suggestions forthcoming. MMODL / IJN: [id number] /
--- NOTE | 2018-08-20 01:11 | P.HPIM ---
History of Present Illness H&P Date: 08/19/18 Chief Complaint: Generalized weakness and hemoptysis Ms. Hurley is a 53-year-old female with a known history of recently diagnosed esophageal cancer status post tracheostomy and tracheal collar at [facility] about 2 months back, hypertension, diabetes type 2 non-insulin- dependent, GERD initially presented to the hospital with complaints of generalized weakness and blood in the sputum. Patient was found to have severe hypokalemic and hypomagnesemia. Potassium level II.3 and magnesium level I.2 on admission. Chest x-ray showed nodular density in the left midlung that was not clearly seen previously. Pulmonary metastases could not be excluded as well as a patchy posterior by basilar opacity on the lateral side suggesting atelectasis or infiltrate. Pulmonary and oncology was consulted. Patient was found have was no the blood from the trach collar. Since the patient had tracheostomy done at [facility], discussed with [facility] hospital transfer team for possible transfer and repair of tracheostomy. Otherwise currently patient is awake alert oriented 3. Patient is able to tolerate oral diet otherwise. Review of Systems Constitutional: Patient denies any fever or chills . Generalized weakness and fatigue. Abdomen: Patient denied nausea vomiting and diarrhea and abdominal pain. Cardiovascular: Patient denies any chest pain or short of breath no palpitations. Respiratory: patient denied any cough is from production. No shortness of breath Neurologic: Patient denied any numbness or tingling headache. Musculoskeletal: Patient denies any complaints of joint swelling or deformity. Skin: Negative Psychiatric: Negative Endocrine: No heat or cold intolerance. No recent weight gain. Genitourinary: No dysuria or hematuria. All other 14 point ROS negative except the above Past Medical History Past Medical History: Cancer, Diabetes Mellitus, GERD/Reflux, GI Bleed, Hypertension Additional Past Medical History / Comment(s): esophogeal cancer. hx bleeding ulcer, kidney stone History of Any Multi-Drug Resistant Organisms: None Reported Past Surgical History: Cholecystectomy, Tonsillectomy Additional Past Surgical History / Comment(s): surgery for esophageal cancer, rt eye surgery age 3, D&C, Past Anesthesia/Blood Transfusion Reactions: No Reported Reaction Past Psychological History: Anxiety, Depression Smoking Status: Never smoker Past Alcohol Use History: None Reported Past Drug Use History: None Reported - Past Family History Mother Family Medical History: No Reported History Father Family Medical History: No Reported History Medications and Allergies Home Medications Medication Instructions Recorded Confirmed Type Ranitidine HCl [Zantac] 150 mg PO BID 05/31/17 08/18/18 History Sertraline [Zoloft] 50 mg PO HS 05/31/17 08/18/18 History metFORMIN HCL [Glucophage] 500 mg PO BID 05/31/17 08/18/18 History Acetylcysteine [Mucomyst] 200 mg INHALATION RT-TID #90 vial 07/20/18 08/18/18 Rx Albuterol Nebulized [Ventolin 2.5 mg INHALATION RT-QID PRN #90 07/20/18 Rx Nebulized] nebu Aspirin 81 mg PO DAILY #30 chew 07/20/18 08/18/18 Rx Metoprolol Tartrate [Lopressor] 25 mg PO BID #60 tab 07/20/18 08/18/18 Rx ALPRAZolam [Xanax] 0.5 mg PO BID 08/18/18 08/18/18 History HYDROcodone/APAP 10-325MG [[place] 1 tab PO Q6H 08/18/18 08/18/18 History 10-325] Lisinopril 20 mg PO DAILY 08/18/18 08/18/18 History Montelukast [Singulair] 10 mg PO HS 08/18/18 08/18/18 History Ondansetron HCl [Zofran] 8 mg PO TID 08/18/18 08/18/18 History Prochlorperazine [Compazine] 10 mg PO Q6H 08/18/18 08/18/18 History Allergies Allergy/AdvReac Type Severity Reaction Status Date / Time No Known Allergies Allergy Verified 08/18/18 14:40 Physical Exam Vitals: Vital Signs Temp Pulse Pulse Resp BP BP Pulse Ox 08/19/18 12:24 74 08/19/18 12:09 70 08/19/18 10:48 97.9 F 08/19/18 08:35 55 L 17 08/19/18 08:01 78 08/19/18 07:33 76 08/19/18 06:28 55 L 17 100/64 97 08/19/18 05:33 95.5 F L 08/19/18 04:26 94.2 F L 08/19/18 02:00 96.5 F L 08/18/18 21:40 18 95 08/18/18 20:15 100.9 F H 110 H 136/72 08/18/18 19:45 24 82 L 08/18/18 19:00 86 18 150/95 91 L 08/18/18 18:00 86 18 146/83 91 L 08/18/18 17:34 80 18 136/76 98 08/18/18 15:00 74 18 131/72 08/18/18 13:51 98.4 F 70 18 100/63 96 Intake and Output 08/18/18 08/19/18 08/19/18 22:59 06:59 14:59 Intake Total 350 700 Balance 350 700 Intake: Intake, IV Titration 700 Amount Levofloxacin 500Mg-D5w 100 Pmx 500 mg In Dextrose/ Water 1 100ml.bag @ 100 mls/hr IVPB Q24H [facility] Rx#: [id number] Potassium Chloride 20 meq 300 In Water For Injection 1 100ml.bag @ 50 mls/hr IVPB Q2H [facility] Rx#: [id number] Sodium Chloride 0.9% 1, 300 000 ml @ 75 mls/hr IV . [id number] [facility] Rx#:[id number] Oral 350 Other: Voiding Method Toilet Toilet # Voids 1 Weight 81.5 kg PHYSICAL EXAMINATION: Patient is lying in the bed comfortably, no acute distress, awake alert and oriented.. HEENT: Normocephalic. Neck is supple. Pupils reactive. Nostrils clear. Oral cavity is moist. Ears reveal no drainage. Neck reveals no JVD, carotid bruits, or thyromegaly. CHEST EXAMINATION: Trachea is central. Trachea extremity with trach collar present. No active bleeding noted. Symmetrical expansion. Lung ramírez clear to auscultation and percussion. CARDIAC: Normal S1, S2 with no gallops. No murmurs ABDOMEN: Soft. Bowel sounds normal. No organomegaly. No abdominal bruits. Extremities: reveal no edema. No clubbing or cyanosis Neurologically awake, alert, oriented x3 with well-coordinated movements. No focal deficits noted Skin: No rash or skin lesions. Psychiatric: Coperative. Nonsuicidal Musculoskeletal: No joint swelling or deformity. Normal range of motion. Results CBC & Chem 7: 08/19/18 07:36 08/19/18 15:14 Labs: Abnormal Lab Results - Last 24 Hours (Table) 08/18/18 08/18/18 08/18/18 Range/Units 15:00 15:00 15:00 RBC (3.80-5.40) m/uL Hgb (11.4-16.0) gm/dL Hct (34.0-46.0) % RDW (11.5-15.5) % Lymphocytes # (1.0-4.8) k/uL Lymphocytes # (Manual) (1.0-4.8) k/uL Sodium 132 L (137-145) mmol/L Potassium 2.3 L* (3.5-5.1) mmol/L Chloride 92 L (98-107) mmol/L BUN 28 H (7-17) mg/dL Glucose 108 H (74-99) mg/dL POC Glucose (mg/dL) (75-99) mg/dL Hemoglobin A1c (4.0-6.0) % Plasma Lactic Acid Niall 2.4 H* (0.7-2.0) mmol/L Calcium 7.4 L (8.4-10.2) mg/dL Magnesium 1.2 L (1.6-2.3) mg/dL AST 114 H (14-36) U/L ALT (9-52) U/L Total Creatine Kinase 205 H (30-135) U/L Total Protein 6.2 L (6.3-8.2) g/dL Albumin 2.8 L (3.5-5.0) g/dL 08/18/18 08/18/18 08/18/18 Range/Units 16:02 16:02 20:19 RBC 3.66 L (3.80-5.40) m/uL Hgb 10.4 L (11.4-16.0) gm/dL Hct 31.6 L (34.0-46.0) % RDW 18.1 H (11.5-15.5) % Lymphocytes # (1.0-4.8) k/uL Lymphocytes # (Manual) 0.87 L (1.0-4.8) k/uL Sodium (137-145) mmol/L Potassium (3.5-5.1) mmol/L Chloride (98-107) mmol/L BUN (7-17) mg/dL Glucose (74-99) mg/dL POC Glucose (mg/dL) 210 H (75-99) mg/dL Hemoglobin A1c 7.5 H (4.0-6.0) % Plasma Lactic Acid Niall (0.7-2.0) mmol/L Calcium (8.4-10.2) mg/dL Magnesium (1.6-2.3) mg/dL AST (14-36) U/L ALT (9-52) U/L Total Creatine Kinase (30-135) U/L Total Protein (6.3-8.2) g/dL Albumin (3.5-5.0) g/dL 08/19/18 08/19/18 08/19/18 Range/Units 03:30 07:05 07:36 RBC (3.80-5.40) m/uL Hgb (11.4-16.0) gm/dL Hct (34.0-46.0) % RDW (11.5-15.5) % Lymphocytes # (1.0-4.8) k/uL Lymphocytes # (Manual) (1.0-4.8) k/uL Sodium 133 L (137-145) mmol/L Potassium 2.6 L* 3.1 L (3.5-5.1) mmol/L Chloride 96 L (98-107) mmol/L BUN 26 H (7-17) mg/dL Glucose 207 H (74-99) mg/dL POC Glucose (mg/dL) 213 H (75-99) mg/dL Hemoglobin A1c (4.0-6.0) % Plasma Lactic Acid Niall (0.7-2.0) mmol/L Calcium 7.6 L (8.4-10.2) mg/dL Magnesium (1.6-2.3) mg/dL AST 115 H (14-36) U/L ALT 54 H (9-52) U/L Total Creatine Kinase (30-135) U/L Total Protein 5.6 L (6.3-8.2) g/dL Albumin 2.5 L (3.5-5.0) g/dL 08/19/18 08/19/18 Range/Units 07:36 11:13 RBC 3.39 L (3.80-5.40) m/uL Hgb 9.7 L (11.4-16.0) gm/dL Hct 29.7 L (34.0-46.0) % RDW 17.6 H (11.5-15.5) % Lymphocytes # 0.5 L (1.0-4.8) k/uL Lymphocytes # (Manual) (1.0-4.8) k/uL Sodium (137-145) mmol/L Potassium (3.5-5.1) mmol/L Chloride (98-107) mmol/L BUN (7-17) mg/dL Glucose (74-99) mg/dL POC Glucose (mg/dL) 179 H (75-99) mg/dL Hemoglobin A1c (4.0-6.0) % Plasma Lactic Acid Niall (0.7-2.0) mmol/L Calcium (8.4-10.2) mg/dL Magnesium (1.6-2.3) mg/dL AST (14-36) U/L ALT (9-52) U/L Total Creatine Kinase (30-135) U/L Total Protein (6.3-8.2) g/dL Albumin (3.5-5.0) g/dL Thrombosis Risk Factor Assmnt - DVT/VTE Prophylaxis DVT/VTE Prophylaxis: Mechanical Prophylaxis ordered - Choose All That Apply Any of the Below Risk Factors Present?: Yes Each Factor Represents 1 point: Age 41-60 years, Obesity (BMI >25), Serious lung disease incl. pneumonia (< 1month), Swollen legs (current) Other Risk Factors: Yes Each Risk Factor Represents 2 Points: Malignancy Other congenital or acquired thrombophilia - If yes, enter type in comment: No Thrombosis Risk Factor Assessment Total Risk Factor Score: 6 Thrombosis Risk Factor Assessment Level: High Risk Assessment and Plan Assessment: Hemoptysis with suspected oozing of blood from the trach collar. Severe hypokalemia and hypomagnesemia Recent esophageal cancer status post surgery and trachea so placement at [facility] Diabetes type 2 nausea and independent GERD History of GI bleed with bleeding ulcer History of nephrolithiasis History of cholecystectomy and tonsillectomy Hypertension Anxiety and depression DVT prophylaxis with SCDs Plan: Patient will be continued on suction of the tracheostomy as needed. Replace potassium and magnesium. Monitor H&H. Oncology and pulmonary was consulted. Further recommendations based on the clinical course. Continue the home medications. Time with Patient: Greater than 30
--- NOTE | 2018-08-20 01:14 | P.DS ---
Providers Date of admission: 08/18/18 18:12 Expected date of discharge: 08/19/18 Attending physician: Stephany Anguiano Consults: 08/19/18 10:08 Consult Physician Routine Consulting Provider: Edward Barbosa Consult Reason/Comments: tach pt weakness Do you want consulting provider notified?: Yes 08/19/18 10:09 Consult Physician Routine Consulting Provider: Keturah Telles Consult Reason/Comments: esophagel cancer question on mets to lungs Do you want consulting provider notified?: Yes Primary care physician: Physician Nonstaff Hospital Course: Discharge diagnosis Hemoptysis with suspected oozing of blood from the trach collar. Severe hypokalemia and hypomagnesemia Recent esophageal cancer status post surgery and trachea so placement at [facility] Diabetes type 2 nausea and independent GERD History of GI bleed with bleeding ulcer History of nephrolithiasis History of cholecystectomy and tonsillectomy Hypertension Anxiety and depression DVT prophylaxis with SCDs Hospital course Ms. Hurley is a 53-year-old female with a known history of recently diagnosed esophageal cancer status post tracheostomy and tracheal collar at [facility] about 2 months back, hypertension, diabetes type 2 non-insulin- dependent, GERD initially presented to the hospital with complaints of generalized weakness and blood in the sputum. Patient was found to have severe hypokalemic and hypomagnesemia. Potassium level II.3 and magnesium level I.2 on admission. Chest x-ray showed nodular density in the left midlung that was not clearly seen previously. Pulmonary metastases could not be excluded as well as a patchy posterior by basilar opacity on the lateral side suggesting atelectasis or infiltrate. Pulmonary and oncology was consulted. Patient was found have was no the blood from the trach collar. Since the patient had tracheostomy done at [facility], discussed with [facility] hospital transfer team for possible transfer and repair of tracheostomy. Otherwise currently patient is awake alert oriented 3. Patient is able to tolerate oral diet otherwise. Patient was continued on suction of the tracheostomy as needed. Replace potassium and magnesium. Monitor H&H. Abdomen is stable. Potassium level improved to 3.1 today. Oncology and pulmonary was consulted. Due to ongoing suspected bleeding from the tracheostomy and hemoptysis patient will be transferred to [facility] for further management where She had tracheostomy placed. Discussed with the [facility] transfer team. Patient was accepted and is awaiting bed for transfer. Discharge physical examination was done and vitals reviewed. Vital Signs - 24 hr 08/19/18 08/19/18 08/19/18 02:00 04:26 05:33 Temperature 96.5 F L 94.2 F L 95.5 F L Pulse Rate Pulse Rate [ Pulse Oximetery ] Respiratory Rate Blood Pressure [Right Arm] O2 Sat by Pulse Oximetry 08/19/18 08/19/18 08/19/18 06:28 07:33 08:01 Temperature Pulse Rate 76 78 Pulse Rate [ 55 L Pulse Oximetery ] Respiratory 17 Rate Blood Pressure 100/64 [Right Arm] O2 Sat by Pulse 97 Oximetry 08/19/18 08/19/18 08/19/18 08:35 10:48 12:09 Temperature 97.9 F Pulse Rate 70 Pulse Rate [ 55 L Pulse Oximetery ] Respiratory 17 Rate Blood Pressure [Right Arm] O2 Sat by Pulse Oximetry 08/19/18 08/19/18 12:24 12:40 Temperature 97.5 F L Pulse Rate 74 Pulse Rate [ 70 Pulse Oximetery ] Respiratory 17 Rate Blood Pressure 95/61 [Right Arm] O2 Sat by Pulse 98 Oximetry Patient Condition at Discharge: Fair Plan - Discharge Summary New Discharge Prescriptions: No Action metFORMIN HCL [Glucophage] 500 mg PO BID Ranitidine HCl [Zantac] 150 mg PO BID Sertraline [Zoloft] 50 mg PO HS Acetylcysteine [Mucomyst] 200 mg INHALATION RT-TID #90 vial Albuterol Nebulized [Ventolin Nebulized] 2.5 mg INHALATION RT-QID PRN #90 nebu PRN Reason: Shortness Of Breath Or Wheezing Aspirin 81 mg PO DAILY #30 chew Metoprolol Tartrate [Lopressor] 25 mg PO BID #60 tab Lisinopril 20 mg PO DAILY ALPRAZolam [Xanax] 0.5 mg PO BID Prochlorperazine [Compazine] 10 mg PO Q6H Ondansetron HCl [Zofran] 8 mg PO TID Montelukast [Singulair] 10 mg PO HS HYDROcodone/APAP 10-325MG [[place] 10-325] 1 tab PO Q6H Discharge Medication List Ranitidine HCl [Zantac] 150 mg PO BID 05/31/17 [History] Sertraline [Zoloft] 50 mg PO HS 05/31/17 [History] metFORMIN HCL [Glucophage] 500 mg PO BID 05/31/17 [History] Acetylcysteine [Mucomyst] 200 mg INHALATION RT-TID #90 vial 07/20/18 [Rx] Albuterol Nebulized [Ventolin Nebulized] 2.5 mg INHALATION RT-QID PRN #90 nebu 07/20/18 [Rx] Aspirin 81 mg PO DAILY #30 chew 07/20/18 [Rx] Metoprolol Tartrate [Lopressor] 25 mg PO BID #60 tab 07/20/18 [Rx] ALPRAZolam [Xanax] 0.5 mg PO BID 08/18/18 [History] HYDROcodone/APAP 10-325MG [[place] 10-325] 1 tab PO Q6H 08/18/18 [History] Lisinopril 20 mg PO DAILY 08/18/18 [History] Montelukast [Singulair] 10 mg PO HS 08/18/18 [History] Ondansetron HCl [Zofran] 8 mg PO TID 08/18/18 [History] Prochlorperazine [Compazine] 10 mg PO Q6H 08/18/18 [History] Follow up Appointment(s)/Referral(s): Nonstaff,Physician [Primary Care Provider] - 1-2 days Discharge Disposition: [facility]
== END 2018-08-19 17:44 | disposition short-term general hospital (02) | DRG 206 ==
LOC: EC 13:35 → 3NMEDONC 18:12
PROVIDERS: ADMIT Internal Medicine; ATTEND Internal Medicine
DX: J95.01 Hemorrhage from tracheostomy stoma (principal); C15.9 Malignant neoplasm of esophagus, unspecified; C78.02 Secondary malignant neoplasm of left lung; E87.2 Acidosis; R04.2 Hemoptysis; Y83.9 Surgical procedure, unspecified as the cause of abnormal reaction of the patient, or of later complication, without mention of misadventure at the time of the procedure; D63.8 Anemia in other chronic diseases classified elsewhere; E11.9 Type 2 diabetes mellitus without complications; E83.42 Hypomagnesemia; E87.6 Hypokalemia; F32.9 Major depressive disorder, single episode, unspecified; F41.9 Anxiety disorder, unspecified; I10 Essential (primary) hypertension; K21.9 Gastro-esophageal reflux disease without esophagitis; Z79.82 Long term (current) use of aspirin; Z79.84 Long term (current) use of oral hypoglycemic drugs; Z79.899 Other long term (current) drug therapy; Z87.442 Personal history of urinary calculi; Z90.49 Acquired absence of other specified parts of digestive tract
CPT/HCPCS: 36415; 71046; 80053; 82550; 82553; 83036; 83605; 83735; 84132; 84484; 85025; 85610; 85730; 86850; 86900; 86901; 87070; 87077; 87186; 87205; 93005; 94640; 96361; 96365; 96366; 96375; 99285

== ENCOUNTER 2018-11-09 19:03 | Inpatient (IN) | payer OTHER ==
[2018-11-09 19:11] VITALS: TEMP 98.7
[2018-11-09] MEDS ORDERED: SODIUM CHLORIDE 0.9% 500 ML 500 ML IV STA (19:27)
--- NOTE | 2018-11-09 19:34 | ED ---
SOB HPI - General Chief Complaint: Shortness of Breath Stated Complaint: HERBERT Time Seen by Provider: 11/09/18 19:14 Source: family Mode of arrival: wheelchair Limitations: no limitations - History of Present Illness Initial Comments: 53-year-old female patient with past medical history significant for esophageal cancer, diabetes, hypertension presents to the emergency department today for evaluation of shortness of breath. Patient did have tracheostomy placed 4 months ago. She is status post chemo and radiation with last dose is being in July. Patient states she's had increase in shortness of breath over the last 2 days. Patient states she has had increased coughing as well. Denies any significant sputum production. Denies any hemoptysis. States that today the breathing worsen significantly which prompted her visit here. States that she is feeling a little better at this time. States that she's been having sweats on and off throughout the day. Denies any chest pain, nausea, vomiting, dizziness, or weakness. Denies any fevers or chills with this. Patient denies any recent rash, abdominal pain, diarrhea, constipation, back pain, numbness, tingling, hematuria, dysuria, urinary urgency, urinary frequency, headache, visual changes, or any other complaints. - Related Data Home Medications Medication Instructions Recorded Confirmed Ranitidine HCl [Zantac] 150 mg PO BID 05/31/17 08/18/18 Sertraline [Zoloft] 50 mg PO HS 05/31/17 08/18/18 metFORMIN HCL [Glucophage] 500 mg PO BID 05/31/17 08/18/18 ALPRAZolam [Xanax] 0.5 mg PO BID 08/18/18 08/18/18 HYDROcodone/APAP 10-325MG [[place] 1 tab PO Q6H 08/18/18 08/18/18 10-325] Lisinopril 20 mg PO DAILY 08/18/18 08/18/18 Montelukast [Singulair] 10 mg PO HS 08/18/18 08/18/18 Ondansetron HCl [Zofran] 8 mg PO TID 08/18/18 08/18/18 Prochlorperazine [Compazine] 10 mg PO Q6H 08/18/18 08/18/18 Previous Rx's Medication Instructions Recorded Acetylcysteine [Mucomyst] 200 mg INHALATION RT-TID #90 vial 07/20/18 Albuterol Nebulized [Ventolin 2.5 mg INHALATION RT-QID PRN #90 07/20/18 Nebulized] nebu Aspirin 81 mg PO DAILY #30 chew 07/20/18 Metoprolol Tartrate [Lopressor] 25 mg PO BID #60 tab 07/20/18 Allergies Allergy/AdvReac Type Severity Reaction Status Date / Time No Known Allergies Allergy Verified 11/09/18 19:11 Review of Systems ROS Statement: Those systems with pertinent positive or pertinent negative responses have been documented in the HPI. ROS Other: All systems not noted in ROS Statement are negative. 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 hx bleeding ulcer, kidney stone History of Any Multi-Drug Resistant Organisms: MRSA Date of last positivie culture/infection: 08/18/18 MDRO Source:: SPUTUM Past Surgical History: Cholecystectomy, Tonsillectomy Additional Past Surgical History / Comment(s): surgery for esophageal cancer, rt eye surgery age 3, D&C, Past Anesthesia/Blood Transfusion Reactions: No Reported Reaction Past Psychological History: Anxiety, Depression Smoking Status: Never smoker Past Alcohol Use History: None Reported Past Drug Use History: None Reported - Past Family History Mother Family Medical History: No Reported History Father Family Medical History: No Reported History General Exam Limitations: no limitations General appearance: alert, in no apparent distress, other (This well-developed, well-nourished adult female patient in no acute distress. Vital signs upon presentation temperature 98.7F, pulse 103, respirations 30, blood pressure 123/100, pulse ox 100% on trach mask.) Eye exam: Present: normal appearance, PERRL, EOMI. Absent: scleral icterus, conjunctival injection, periorbital swelling ENT exam: Present: normal exam, normal oropharynx, mucous membranes moist Respiratory exam: Present: normal lung sounds bilaterally. Absent: respiratory distress, wheezes, rales, rhonchi, stridor Cardiovascular Exam: Present: regular rate, normal rhythm, normal heart sounds. Absent: systolic murmur, diastolic murmur, rubs, gallop, clicks GI/Abdominal exam: Present: soft, normal bowel sounds. Absent: distended, tenderness, guarding, rebound, rigid Neurological exam: Present: alert, oriented X3, CN II-XII intact Psychiatric exam: Present: normal affect, normal mood Skin exam: Present: warm, dry, intact, normal color. Absent: rash Course Vital Signs 11/09/18 11/10/18 11/10/18 19:09 00:03 00:18 Temperature 98.7 F Pulse Rate 103 H 88 76 Respiratory 30 H 18 20 Rate Blood Pressure 183/100 175/135 174/96 O2 Sat by Pulse 100 99 99 Oximetry 11/10/18 11/10/18 11/10/18 00:56 01:12 01:41 Temperature Pulse Rate 108 H 100 89 Respiratory 20 Rate Blood Pressure 177/83 O2 Sat by Pulse 99 Oximetry 11/10/18 03:20 Temperature Pulse Rate 69 Respiratory 16 Rate Blood Pressure 167/95 O2 Sat by Pulse 97 Oximetry Medical Decision Making - Medical Decision Making 53-year-old female patient who is has esophageal cancer and is status post tracheostomy 4 months ago presents to the emergency department today with complaints of dyspnea. Physical examination is relatively unremarkable, lungs are clear to auscultation with good air movement. Patient is resting comfortably in bed at time of exam. Labs reviewed and did reveal an elevated d- dimer 1.56, BNP of 1500. Chest x-ray showed mild heart failure. CT angiography of the chest was obtained and showed atelectasis versus infiltrate. No evidence of dissection or PE. Plan was to administer Lasix and discharged home however patient developed acute dyspnea with wheezing and shortness of breath and did not fill comfortable being discharged. She is given a breathing treatment, we did apply Nitropaste, and gave a dose of morphine for her comfort. She will be admitted for further evaluation and diuresis. - Lab Data Result diagrams: 11/09/18 20:45 11/09/18 20:45 Lab Results 11/09/18 11/09/18 11/09/18 Range/Units 20:45 20:45 20:45 WBC 6.2 (3.8-10.6) k/uL RBC 3.31 L (3.80-5.40) m/uL Hgb 10.0 L (11.4-16.0) gm/dL Hct 31.7 L (34.0-46.0) % MCV 95.7 (80.0-100.0) fL MCH 30.1 (25.0-35.0) pg MCHC 31.5 (31.0-37.0) g/dL RDW 14.6 (11.5-15.5) % Plt Count 199 (150-450) k/uL Neutrophils % 74 % Lymphocytes % 18 % Monocytes % 5 % Eosinophils % 2 % Basophils % 0 % Neutrophils # 4.6 (1.3-7.7) k/uL Lymphocytes # 1.1 (1.0-4.8) k/uL Monocytes # 0.3 (0-1.0) k/uL Eosinophils # 0.1 (0-0.7) k/uL Basophils # 0.0 (0-0.2) k/uL PT 10.3 (9.0-12.0) sec INR 1.0 (<1.2) APTT 22.3 (22.0-30.0) sec D-Dimer 1.56 H (<0.60) mg/L FEU Sodium 137 (137-145) mmol/L Potassium 3.7 (3.5-5.1) mmol/L Chloride 101 (98-107) mmol/L Carbon Dioxide 29 (22-30) mmol/L Anion Gap 7 mmol/L BUN 10 (7-17) mg/dL Creatinine 0.49 L (0.52-1.04) mg/dL Est GFR (CKD-EPI)AfAm >90 (>60 ml/min/1.73 sqM) Est GFR (CKD-EPI)NonAf >90 (>60 ml/min/1.73 sqM) Glucose 186 H (74-99) mg/dL Calcium 8.4 (8.4-10.2) mg/dL Total Bilirubin 0.2 (0.2-1.3) mg/dL AST 14 (14-36) U/L ALT 23 (9-52) U/L Alkaline Phosphatase 60 (38-126) U/L Troponin I (0.000-0.034) ng/mL NT-Pro-B Natriuret Pep pg/mL Total Protein 6.1 L (6.3-8.2) g/dL Albumin 2.8 L (3.5-5.0) g/dL 11/09/18 11/09/18 Range/Units 20:45 20:45 WBC (3.8-10.6) k/uL RBC (3.80-5.40) m/uL Hgb (11.4-16.0) gm/dL Hct (34.0-46.0) % MCV (80.0-100.0) fL MCH (25.0-35.0) pg MCHC (31.0-37.0) g/dL RDW (11.5-15.5) % Plt Count (150-450) k/uL Neutrophils % % Lymphocytes % % Monocytes % % Eosinophils % % Basophils % % Neutrophils # (1.3-7.7) k/uL Lymphocytes # (1.0-4.8) k/uL Monocytes # (0-1.0) k/uL Eosinophils # (0-0.7) k/uL Basophils # (0-0.2) k/uL PT (9.0-12.0) sec INR (<1.2) APTT (22.0-30.0) sec D-Dimer (<0.60) mg/L FEU Sodium (137-145) mmol/L Potassium (3.5-5.1) mmol/L Chloride (98-107) mmol/L Carbon Dioxide (22-30) mmol/L Anion Gap mmol/L BUN (7-17) mg/dL Creatinine (0.52-1.04) mg/dL Est GFR (CKD-EPI)AfAm (>60 ml/min/1.73 sqM) Est GFR (CKD-EPI)NonAf (>60 ml/min/1.73 sqM) Glucose (74-99) mg/dL Calcium (8.4-10.2) mg/dL Total Bilirubin (0.2-1.3) mg/dL AST (14-36) U/L ALT (9-52) U/L Alkaline Phosphatase (38-126) U/L Troponin I <0.012 (0.000-0.034) ng/mL NT-Pro-B Natriuret Pep 1500 pg/mL Total Protein (6.3-8.2) g/dL Albumin (3.5-5.0) g/dL - EKG Data -: EKG Interpreted by [facility] EKG Comments: EKG obtained at 2028 shows sinus rhythm with PACs, ventricular rate is 76, MA interval 124, QRS duration 88, QT 426, QTc 479. No evidence of ST elevation or depression. - Radiology Data Radiology results: report reviewed, image reviewed CT of the chest was performed with contrast, report was reviewed in its entirety. Impression by Dr. Tobar shows no evidence of aortic dissection or PE. Small left pleural effusion, maybe loculated, and trace right pleural effusion. Patchy left greater than right atelectasis or infiltrate. Correlate clinically regarding inflammatory/infectious process. Small pulmonary nodules. Follow-up imaging may be considered at high risk patients. Hiatal hernia containing pancreas and nondistended bowel with bowel wall thickening or under d istention. Query gastric pull-through. A 3 cm right adrenal nodule. Two-view x-ray of the chest is obtained. Report was reviewed in its entirety. Impression by Dr. Blackburn shows pulmonary vascularity increase lately compared to last exam. Mild heart failure as possible. There is apparent dilated air- filled esophagitis unchanged. Disposition Clinical Impression: Pleural effusion, Dyspnea Disposition: ADMITTED IP TO THIS HOSP Condition: Serious Is patient prescribed a controlled substance at d/c from ED?: No Time of Disposition: 23:32
--- NOTE | 2018-11-09 21:12 | XR ---
EXAMINATION TYPE: XR chest 2V DATE OF EXAM: 11/09/2018 COMPARISON: 08/18/2018 HISTORY: Difficulty breathing TECHNIQUE: Frontal and lateral views of the chest are obtained. FINDINGS: There is mild pulmonary congestion. Heart is slightly enlarged. There is poor inspiration. There is right central venous catheter noted with the tip in the superior vena cava. There is trache ostomy tube. There is intact bony thorax. IMPRESSION: Pulmonary vascularity increased slightly compared to last exam. Mild heart failure is po ssible. There is apparent dilated air-filled esophagus unchanged.
[2018-11-09 21:17] LABS: Basophils % (A) 0 %; Eosinophils # (A) 0.1 k/uL (0-0.7); Eosinophils % (A) 2 %; HCT 31.7 % (34.0-46.0); Lymphocytes # (A) 1.1 k/uL (1.0-4.8); Lymphocytes % (A) 18 %; MCH 30.1 pg (25.0-35.0); MCHC 31.5 g/dL (31.0-37.0); MCV 95.7 fL (80.0-100.0); Mean Platelet Volume 7.9; Monocytes # (A) 0.3 k/uL (0-1.0); Monocytes % (A) 5 %; Neutrophils # (A) 4.6 k/uL (1.3-7.7); Neutrophils % (A) 74 %; Platelet Count 199 k/uL (150-450); RBC 3.31 m/uL (3.80-5.40); RDW 14.6 % (11.5-15.5); WBC 6.2 k/uL (3.8-10.6)
[2018-11-09 21:25] LABS: ALT 23 U/L (9-52); AST 14 U/L (14-36); Albumin 2.8 g/dL (3.5-5.0); Alkaline Phosphatase 60 U/L (38-126); Anion Gap 7 mmol/L; Blood Urea Nitrogen 10 mg/dL (7-17); Calcium 8.4 mg/dL (8.4-10.2); Carbon Dioxide 29 mmol/L (22-30); Chloride 101 mmol/L (98-107); Glucose 186 mg/dL (74-99); Potassium 3.7 mmol/L (3.5-5.1); Sodium 137 mmol/L (137-145); Total Bilirubin 0.2 mg/dL (0.2-1.3); Total Protein 6.1 g/dL (6.3-8.2)
[2018-11-09 21:35] LABS: Partial Thromboplastin Time 22.3 sec (22.0-30.0); Prothrombin Time 10.3 sec (9.0-12.0)
[2018-11-09 21:50] LABS: D-Dimer 1.56 mg/L FEU (<0.60)
--- NOTE | 2018-11-09 23:11 | CT ---
EXAM: CT Angiography Chest With Intravenous Contrast CLINICAL HISTORY: SOB. Hx of esophageal ca. ITS.REASON CT Reason: Pain TECHNIQUE: Axial computed tomographic angiography images of the chest with intravenous contrast using pulmonary embolism protocol. CTDI is 8.2 mGy and DLP is 343.1 mGy-cm. This CT exam was performed using one or more of the following dose reduction techniques: automated exposure control, adjustment of the mA and/or kV according to patient size, and/or use of iterative reconstruction technique. MIP reconstructed images were created and reviewed. COMPARISON: No relevant prior studies available. FINDINGS: Pulmonary arteries: No evidence of pulmonary embolism. Aorta: No aortic aneurysm or dissection. Lungs: Patchy left greater than right atelectasis or infiltrate. Small pulmonary nodules. Pleural space: Small left pleural effusion, may be loculated, and trace right pleural effusion. Heart: Unremarkable. Mediastinum: Tubular density in the trachea and bilateral mainstem bronchi with internal debris. Thickwalled debris-containing structure in the posterior chest suggestive of a gastric pull-through. Bones/joints: No acute fracture. Soft tissues: Unremarkable as visualized. Lymph nodes: Unremarkable. Gallbladder and bile ducts: Cholecystectomy. Pancreas: Hiatal hernia containing pancreas and nondistended bowel with bowel wall thickening or underdistention. Adrenals: A 3 cm right adrenal nodule. Tubes, lines and devices: Tracheostomy tube noted. IMPRESSION: 1. No evidence of aortic dissection or PE. 2. Small left pleural effusion, may be loculated, and trace right pleural effusion. Patchy left greater than right atelectasis or infiltrate. Correlate clinically regarding inflammatory/infectious process. Small pulmonary nodules. Followup imaging may be considered in high-risk patients. 3. Hiatal hernia containing pancreas and nondistended bowel with bowel wall thickening or underdistention. Query gastric pull-through. Correlate with surgical history. 4. A 3 cm right adrenal nodule.
[2018-11-09] MEDS ORDERED: FUROSEMIDE 10 MG/ML 4 ML VIAL IV STA (23:29)
[2018-11-10] MEDS ORDERED: FUROSEMIDE 10 MG/ML 4 ML VIAL IM STA (00:35)
[2018-11-10] MEDS ORDERED: ALBUTEROL NEBULIZED 2.5 MG/3 ML INHALATION STA (00:35)
[2018-11-10] MEDS ORDERED: MORPHINE SULFATE 4 MG/ML SYRINGE IV PRN (01:29)
[2018-11-10] MEDS ORDERED: ACETAMINOPHEN TAB 325 MG TAB PO PRN (01:29)
[2018-11-10] MEDS ORDERED: NALOXONE 0.4 MG/ML 1 ML VIAL IV PRN (01:29)
[2018-11-10] MEDS ORDERED: NITROGLYCERIN OINT 1 INCH/GM PACKET TOPICAL STA (01:30)
[2018-11-10 03:21] VITALS: BP 167/95; RESP 16
[2018-11-10] MEDS ORDERED: ALBUTEROL NEBULIZED 2.5 MG/3 ML INHALATION PRN (03:33)
[2018-11-10] MEDS ORDERED: HYDROcodone/APAP 10-325MG 1 EACH TAB PO PRN (03:45)
[2018-11-10] MEDS: ALBUTEROL NEBULIZED 2.5 MG/3 ML INHALATION SCH ×2 (04:05→08:22)
[2018-11-10] MEDS ORDERED: ACETYLCYSTEINE 800 MG/4 ML VIAL INHALATION SCH (08:00)
[2018-11-10 08:28] VITALS: PULSE 95
[2018-11-10] MEDS ORDERED: METOPROLOL TARTRATE 25 MG TAB PO SCH (09:00)
[2018-11-10] MEDS ORDERED: FUROSEMIDE 10 MG/ML 4 ML VIAL IV SCH (09:00)
[2018-11-10] MEDS ORDERED: metFORMIN 500 MG TAB PO SCH (09:00)
[2018-11-10] MEDS ORDERED: ASPIRIN 81 MG PO SCH (09:00)
[2018-11-10] MEDS ORDERED: LISINOPRIL 20 MG TAB PO SCH (09:00)
[2018-11-10] MEDS ORDERED: ALPRAZolam 0.5 MG TAB PO SCH (09:00)
[2018-11-10] MEDS ORDERED: FAMOTIDINE 20 MG TAB PO SCH (09:00)
[2018-11-10] MEDS ORDERED: EPINEPHrine 10 ML SYRINGE (0.1 MG/ML) ONE (09:22)
[2018-11-10] MEDS ORDERED: NOREPINEPHRINE 1 MG/ML 4 ML VIAL IV ONE (09:22)
[2018-11-10 10:08] LABS: Prothrombin Time 11.1 sec (9.0-12.0)
[2018-11-10 10:12] LABS: ALT 26 U/L (9-52); AST 54 U/L (14-36); Albumin 3.4 g/dL (3.5-5.0); Alkaline Phosphatase 75 U/L (38-126); Anion Gap 14 mmol/L; Blood Urea Nitrogen 8 mg/dL (7-17); Calcium 8.7 mg/dL (8.4-10.2); Carbon Dioxide 26 mmol/L (22-30); Chloride 100 mmol/L (98-107); Glucose 210 mg/dL (74-99); Potassium 3.4 mmol/L (3.5-5.1); Sodium 140 mmol/L (137-145); Total Bilirubin 0.4 mg/dL (0.2-1.3); Total Protein 7.3 g/dL (6.3-8.2)
[2018-11-10 10:16] LABS: HCT 35.4 % (34.0-46.0); HGB 10.7 gm/dL (11.4-16.0); Hypochromasia Marked; MCH 29.8 pg (25.0-35.0); MCHC 30.1 g/dL (31.0-37.0); MCV 98.8 fL (80.0-100.0); Mean Platelet Volume 8.6; Platelet Count 229 k/uL (150-450); RBC 3.59 m/uL (3.80-5.40); RDW 14.6 % (11.5-15.5); WBC 15.8 k/uL (3.8-10.6)
[2018-11-10 10:55] LABS: Eosinophils # (M) 0.16 k/uL (0-0.7); Lymphocytes # (M) 9.32 k/uL (1.0-4.8); Monocytes # (M) 1.11 k/uL (0-1.0); Neutrophils # (M) 5.21 k/uL (1.3-7.7); Neutrophils % (M) 33 %; Nucleated Red Blood Cells 0 /100 WBC (0-0); Total Cells Counted 100
[2018-11-10 11:00] LABS: VBG PH 7.08 (7.31-7.41)
[2018-11-10 11:02] LABS: Creatine Kinase MB 0.8 ng/mL (0.0-2.4)
[2018-11-10] MEDS ORDERED: MONTELUKAST 10 MG TAB PO SCH (21:00)
[2018-11-10] MEDS ORDERED: SERTRALINE 50 MG TAB PO SCH (21:00)
--- NOTE | 2018-11-11 01:34 | HP ---
HISTORY AND PHYSICAL DATE OF SERVICE: 11/10/2018. CHIEF COMPLAINT: Shortness of breath. HISTORY OF PRESENTING ILLNESS: The patient is a 53-year-old male with a known history of esophageal cancer status post chemoradiation in July 2018, hypertension, diabetes, tracheostomy placed 4 months ago. Came to the ER with a complaint of shortness of breath. The patient did have chemo and radiation and last dose was in July 2018. The patient apparently has been having worsening shortness of breath for the last 2 days with increase in the cough. Denied any significant changes in sputum production. Denies any hemoptysis. The patient came to the hospital with worsening shortness of breath. The patient was afebrile on admission. Chest x-ray showed pulmonary vascularity increased slightly compared to last exam. Mild heart failure is possible. There is an apparent dilated esophagitis unchanged from previous study. The patient was given a dose of IV Lasix in the ER. The patient was found to have elevated D-dimer level slightly and underwent CT angio of the chest, showed no evidence of aortic dissection or PE. Small left pleural effusion may be loculated and trace right pleural effusion. Patchy left greater than right atelectasis or infiltrate. Correlate clinically regarding inflammatory/infective process. Small pulmonary nodules. Followup imaging may be considered. Hiatal hernia containing pancreas and nondistended bowel with bowel wall thickening or unrelated distention. Query gastric pull-through. Correlate with surgical history of esophagitis. This morning while in the ER the patient apparently went into respiratory distress. The patient went into acute cardiopulmonary arrest and code blue was initiated. The patient had . Was also attempted to be intubated. Cardiopulmomary resuscitation was unsuccessful and patient . Family has been notified. PAST MEDICAL HISTORY: Esophageal cancer, diabetes type 2, GERD, history of GI bleed, hypertension. PAST SURGICAL HISTORY: Cholecystectomy, tonsillectomy, surgery for esophageal cancer, right eye surgery at age 3 and D and C. PSYCHOSOCIAL HISTORY: Anxiety and depression. SOCIAL HISTORY: Never a smoker. Denies alcohol, drug use. ALLERGIES: No known drug allergies. CURRENT MEDICATIONS: At home include: 1. Zantac. 2. Sertraline. 3. Metformin. 4. Xanax. 5. [place] 10. 6. Lisinopril. 7. Singulair. 8. Zofran. 9. Compazine. PHYSICAL EXAMINATION: VITAL SIGNS: Blood pressure 183/100, pulse is 103, respiration rate 20. Patient is on 100% with trach collar on 3 L oxygen. INVESTIGATIVE STUDIES: Chest x-ray and CT angiogram of the chest was reviewed. D-dimer is 1.56 and BNP 1500. WBC 6.2, hemoglobin 10.0, platelets 199,000. D-dimer 1.56. Sodium 137, potassium 3.7, chloride 101, bicarb 29, anion gap 7, BUN 10, creatinine 0.49, blood sugar is 186, calcium 8.4. AST and ALT within normal limits. Total protein 6.1, albumin 2.8, and troponin less than 0.012, but discharge. IMPRESSION AND PLAN: 1. Worsening shortness of breath, could be secondary to pleural effusion. Patient was saturating well on trach collar with 3 L nasal cannula. 2. Chest x-ray showed mild CHF and dilated air-filled esophagitis, unchanged from previous study. CT angiogram showed no evidence of PE. The patient is being monitored currently, still in the emergency room this morning. The patient went into cardiopulmonary arrest and resuscitation and CPR was initiated. Please refer to the ER note for details. MMODL / IJN: [id number] /
== END 2018-11-10 10:48 | disposition expired | DRG 292 ==
LOC: EC 19:03 → 4SSUR 11-10 02:39 → 3NMEDONC 11-10 07:40 → 2SICU 11-10 10:01
PROVIDERS: ADMIT Hospitalist; ATTEND Hospitalist
PROC: 5A12012 Performance of Cardiac Output, Single, Manual (ICD-10-PCS; principal; 2018-11-10)
PROC: 0BH17EZ Insertion of Endotracheal Airway into Trachea, Via Natural or Artificial Opening (ICD-10-PCS; 2018-11-10)
DX: I11.0 Hypertensive heart disease with heart failure (principal); J98.11 Atelectasis; I46.9 Cardiac arrest, cause unspecified; Z93.0 Tracheostomy status; I50.9 Heart failure, unspecified; R91.8 Other nonspecific abnormal finding of lung field; K21.0 Gastro-esophageal reflux disease with esophagitis; E11.9 Type 2 diabetes mellitus without complications; K44.9 Diaphragmatic hernia without obstruction or gangrene; F32.9 Major depressive disorder, single episode, unspecified; F41.9 Anxiety disorder, unspecified; Z79.84 Long term (current) use of oral hypoglycemic drugs; Z79.82 Long term (current) use of aspirin; Z79.891 Long term (current) use of opiate analgesic; Z79.899 Other long term (current) drug therapy; Z92.3 Personal history of irradiation; Z90.49 Acquired absence of other specified parts of digestive tract; Z92.21 Personal history of antineoplastic chemotherapy; Z87.442 Personal history of urinary calculi; Z87.11 Personal history of peptic ulcer disease; Z86.14 Personal history of Methicillin resistant Staphylococcus aureus infection; Z85.01 Personal history of malignant neoplasm of esophagus
CPT/HCPCS: 36415; 71046; 71275; 80053; 82550; 82553; 82803; 83605; 83880; 84484; 85025; 85379; 85610; 85730; 93005; 94760; 96372; 96374; 99285